=== PATIENT | male | born 1940 | race Caucasian/White ===

== ENCOUNTER → 2019-09-28 07:59 | Outpatient (BNVA) | payer OTHER, SELFPAY | PROVIDERS: Family Provider Emergency Medicine Emergency Medical Services; PCP Emergency Medicine Emergency Medical Services; Visit Provider Specialist | DX: R55 Syncope and collapse (principal); G47.33 Obstructive sleep apnea (adult) (pediatric); G47.19 Other hypersomnia; F17.210 Nicotine dependence, cigarettes, uncomplicated | CPT/HCPCS: 99214 ==

== ENCOUNTER 2019-09-29 08:36 | Outpatient (CLI) | payer OTHER, SELFPAY ==
--- NOTE | 2019-09-29 19:37 | ONC FU_ITS ---
Dr. Monahan Patient Follow-Up Note Patient: Wolf Godinez Unit #: [id number]: 1940 Dicatated By: Jameson Monahan M.D.Date of Visit:Sep 29, 2019 Onc Med Follow-up/Prog Note Chief Complaint: Anal canal cancer. 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 He had presented with a several month history of rectal bleeding. He was referred to Dr. Corley. He underwent colonoscopy on 10/28/2016. Findings included a 5 mm sessile polyp in the sigmoid colon, removed with cold biopsy forceps, and a 4 cm ulcerated mass on the left lateral side of the anal canal. By digital exam, it was noted to extend from the anal verge. Pathology on the sigmoid polyp was consistent with hyperplastic polyp. Biopsy of the anal canal mass showed low-grade (well to moderately differentiated) infiltrating adenocarcinoma. He was then seen by Dr. Vaughn in [place] for colorectal surgery evaluation. He was given the option to undergo initial chemoradiation and then reevaluate for possible surgery. He had radiation oncology consultation with Dr. Don on 11/13/2016. He had staging CT of the chest, abdomen, and pelvis on 11/25/2016. It did show soft tissue thickening in the lower rectum estimated 2.7 x 1.6 x 2.9 cm. There was mild diffuse decreased attenuation of the liver suggestive of fatty infiltration. There was no adenopathy or other evidence of metastatic involvement. A right common iliac artery stent was in place, and there did appear to be high-grade stenosis involving the distal aspect of the right common iliac artery. He began treatment with radiation concurrently with Xeloda 1500 mg twice daily on 12/10/2016. The radiation was completed on 01/26/2017 to a total dose of 5580 cGy. He tolerated the treatment well. On his follow-up with Dr. Vaughn, he appeared to have a complete pathologic response to the chemoradiation. As such, he is continuing on observation/expectant management. His other medical illnesses include hypertension, hyperlipidemia, coronary artery disease, coronary artery disease, peripheral arterial disease, GERD, and COPD. He has a history of smoking for 60 years, up to 3 packs of cigarettes daily. He had cut down to one half pack per day about 10 years ago. INTERIM HISTORY: Subsequent to his visit in August 2017 he underwent angioplasty/stent placement to both legs. He began on anticoagulation with rivaroxaban. On 10/26/2017 he was admitted to the hospital with iron deficiency anemia, hemoglobin 6.8 g. He did require transfusion of 2 units of PRBC. EGD showed nonerosive gastritis. The rivaroxaban was put on hold. On 12/01/2017 he underwent coronary angiography with placement of stents to the RCA and the LAD. I had seen him for a follow-up visit on 03/28/2019. At that point he was having some pain in the epigastric area. He otherwise appeared stable clinically. He then underwent surveillance colonoscopy by Dr. Corley on 05/10/2019. It showed a 3 mm sessile polyp in the descending colon which was removed endoscopically. There were no other abnormal findings. Pathology showed hyperplastic polyp. He also underwent EGD, which showed nonerosive gastritis. He is seen for a scheduled visit. He has been feeling pretty good generally, though he recently was seen at the [facility] with an exacerbation of gout in his right leg and subsequently in his left leg. He does complain that his legs hurt, mainly with activity. He says it feels like a muscle cramp. His energy is a little slow, but he is still doing light work. He has good appetite. He has not had fever. He does report having some sweating at night. He is short of breath with activity. He has cough, but not too much. He is still smoking 1/2 pack of cigarettes daily. He is going to be starting Chantix. He currently has no GI or complaints. He has some numbness in his fingers. Medications: Acetaminophen 1 Tablet (of 325 mg) Oral daily PRN, Allopurinol 1 Tablet (of 300 mg) Oral daily, Aspirin 1 Tablet (of 81 mg) Oral daily, Brilinta 1 Tablet (of 90 mg) Oral b.i.d., HydroCHLOROthiazide 1 Tablet (of 25 mg) Oral daily, Isosorbide Mononitrate ER 1 Tablet (of 30 mg) Tablet SR 24 HR Oral daily, Metoprolol Tartrate 1 Tablet (of 100 mg) Oral daily, Multivitamin Adult 1 Tablet Tablet Oral daily, Nitrostat 1 Tablet (of 0.4 mg) Tablet, sublingual Sublingual PRN, Pantoprazole Sodium 1 Tablet (of 20 mg) Tablet, enteric coated Oral b.i.d., Pravastatin Sodium 1 Tablet (of 40 mg) Oral daily, Ranolazine ER 1 Tablet (of 500 mg) Tablet SR 12 HR Oral b.i.d., Ticagrelor 1 Tablet (of 90 mg) Oral b.i.d. Allergies: No Known Allergies. Review of Systems: Constitutional - His energy is a little slow. He is able to do light work. Appetite is good and weight is stable. No fever. He has a little night sweating occasionally. ECOG score is 1, ENMT - He has sinus drainage. No mouth sores. No sore throat or difficulty swallowing, Hematologic/Lymphatic - He bruises easily, Respiratory - He has shortness of breath with activity. He has some cough, but not much. He smokes about half a pack of cigarettes a day. No pleuritic pain or hemoptysis, Cardiovascular - He occasionally takes nitroglycerin for chest pain. No palpitations, Gastrointestinal - No nausea or vomiting. He has occasional acid reflux. No diarrhea or constipation. No blood in the stool or black stools, Genitourinary (M) - No dysuria or hematuria. No urinary frequency. No urgency or incontinence, Musculoskeletal - He has pain in his legs, which feels like muscle cramping. It occurs mainly with walking. He also has neck and back pain, Integumentary - No skin complications, Neurologic - No headache or dizziness. He occasionally has numbness in his fingers. He has no other focal neurologic symptoms, Psychiatric - No anxiety or depression. No insomnia. Vital Signs: Performed on Sep 29, 2019 09:00 Height - 69.00 in Weight - 213.0 lbs (HIGH) BSA - 2.12 sq.m BMI - 31.45 (HIGH) Temperature - 97.6 F (LOW) Pulse - 71 /min Respiration - 20 /min BP - 139/85 mm(hg) O2 Sat - 100 % Pain - 7 Physical Examination: Constitutional - He looks pretty good generally, Eyes - Sclerae nonicteric. Conjunctivae clear, ENMT - No lesions noted in the oral cavity, Hematologic/Lymphatic - No cervical, clavicular, or axillary adenopathy, Respiratory - Lungs sound clear but with markedly diminished air movement bilaterally, Cardiovascular - Heart rhythm is irregular. There is no murmur, gallop or rub noted, Abdomen - Mildly distended. Liver and spleen are not enlarged. There is no abdominal mass or ascites noted and there is no inguinal adenopathy, Extremities - No edema. He has palpable dorsalis pedis pulse on the right and palpable posterior tibial pulse on the left. Both feet are warm to touch, Neurologic - No focal neurologic deficits noted. Impression: 1. Patient with adenocarcinoma of the anal canal. By clinical evaluation, his disease appeared to be stage II (T2, N0, M0). 2. He was given neoadjuvant chemoradiation utilizing Xeloda for chemosensitization. He completed treatment on 01/26/2017 to a total radiation dose of 5580 cGy. He tolerated the treatment well. On his follow-up with Dr. Vaughn, he did appear to have a complete pathologic response to the chemoradiation. His other medical illnesses include: 3. Hypertension. 4. Hyperlipidemia. 5. Coronary artery disease. 6. Peripheral arterial disease. 7. GERD. 8. COPD. In October 2017 he required hospitalization for iron deficiency anemia in association with nonerosive gastritis, and in November 2017 he underwent placement of stents to the RCA and LAD. A repeat EGD in April 2019 still showed evidence of nonerosive gastritis. Surveillance colonoscopy at that time showed just 1 small hyperplastic polyp in the descending colon. There were no other abnormalities noted. He has been having pain in both legs which is suspicious for claudication pain, though he does have palpable pedal pulses bilaterally. Overall, he continues to have fairly marginal performance status, but thus far there has been no evidence of recurrence of the anal canal cancer. Plan: He remains on observation/expectant management for the anal canal cancer. He will be scheduled for a follow-up visit with surveillance CT scans in 6 months. Signed By: Jameson Monahan M.D. <<Signature on File>>
== END 2019-09-29 08:37 | disposition home or self-care (01) ==
PROVIDERS: Family Provider Emergency Medicine Emergency Medical Services; PCP Emergency Medicine Emergency Medical Services; Visit Provider Internal Medicine Medical Oncology
DX: Z08 Encounter for follow-up examination after completed treatment for malignant neoplasm (principal); Z85.048 Personal history of other malignant neoplasm of rectum, rectosigmoid junction, and anus; I10 Essential (primary) hypertension; E78.5 Hyperlipidemia, unspecified; I25.10 Atherosclerotic heart disease of native coronary artery without angina pectoris; I73.9 Peripheral vascular disease, unspecified; K21.9 Gastro-esophageal reflux disease without esophagitis; J44.9 Chronic obstructive pulmonary disease, unspecified; F17.210 Nicotine dependence, cigarettes, uncomplicated; Z95.820 Peripheral vascular angioplasty status with implants and grafts; Z79.82 Long term (current) use of aspirin; Z92.3 Personal history of irradiation; Z92.21 Personal history of antineoplastic chemotherapy; Z95.5 Presence of coronary angioplasty implant and graft
CPT/HCPCS: G0463

== ENCOUNTER 2019-11-03 14:51 | Outpatient (CLI) | payer OTHER, SELFPAY ==
--- NOTE | 2019-11-03 14:58 | USCV_ITS ---
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 No significant arterial obstruction on the right side. 2. Features of mild peripheral arterial disease, involving the distal vessels on the left side Dr Jose Manuel Whitman MD [facility] (Electronically Signed) Final Date: 04 November 2019 11:11 S
== END 2019-11-03 14:52 | disposition home or self-care (01) ==
LOC: US 14:52
PROVIDERS: Family Provider Emergency Medicine Emergency Medical Services; PCP Emergency Medicine Emergency Medical Services; Visit Provider Emergency Medicine Emergency Medical Services
DX: M79.672 Pain in left foot (principal); M79.671 Pain in right foot; M79.605 Pain in left leg; M79.604 Pain in right leg
CPT/HCPCS: 93922

== ENCOUNTER 2020-03-28 11:07 | Outpatient (CLI) | payer OTHER, SELFPAY ==
--- NOTE | 2020-03-28 11:33 | CT_ITS ---
WS: [id number] CT CHEST, ABDOMEN, AND PELVIS TECHNIQUE: Noncontrast CT of the chest, abdomen, and pelvis with coronal and sagittal reformatted jose luis ges. CLINICAL INFORMATION: ANAL CANAL CANCER COMPARISON: CT chest and chest abdomen pelvis November 25, 2016 DLP: 1845.[address] scans at [facility] use at least one of these dose optimization techniques: automat ed exposure control; mA and/or kV adjustment per patient size (includes targeted exams where dose is matched to clinical indication); or iterative reconstruction. CT CHEST: Moderate chronic emphysematous changes. No acute pulmonary infiltrates. Slight bibasilar atelectasis. No mediastinal or hilar lymphadenopathy. Vascular calcification including coronary. No axillary lymp hadenopathy. Low-attenuation lesion in the upper left chest wall medially likely incidental sebaceous cyst was present in 2016 but increased in size. This measures 3.0 x 1.7 CM. No mediastinal or hilar lymphadenopathy. Vascular calcification. Hypertrophic changes thoracic spine. CT ABDOMEN AND PELVIS: Mild diffuse fatty infiltration liver. Minimal soft tissue thickening involving the anus and periana l soft tissues consistent with treatment-related changes. No nodular enhancing lesions. Normal sigmoi d colon. No evidence of small or large bowel obstruction. Normal appendix. Normal GE junction. Fatty atrophy of the pancreas. Normal noncontrast gallbladder. Adrenal glands are normal. Renal cortical atrophy. Left renal cyst. Mild aortic calcification. No abdominal or pelvic l ymphadenopathy. Somewhat enlarged prostate measuring 4.1 cm with prostate calcifications. Degenerativ e arthritis lumbar spine. CT/CT chest abd pel wo con IMPRESSION: 1. Minimal soft tissue thickening involving the anus and perirectal soft tissu es consistent with treatment-related changes. No evidence of residual or recurr ent enhancing lesion. 2. No evidence of progressed or recurrent metastatic disease in the chest, abd omen or pelvis 3. Lungs are well aerated. No mediastinal or hilar lymphadenopathy. 4. No abdominal or pelvic lymphadenopathy. No inguinal lymphadenopathy. 5. Somewhat enlarged prostate measuring 4.1 CM. Recommend correlation PSA. 6. Right common iliac stent.
== END 2020-03-28 11:08 | disposition home or self-care (01) ==
LOC: CT 11:08
PROVIDERS: Family Provider Emergency Medicine Emergency Medical Services; PCP Emergency Medicine Emergency Medical Services; Visit Provider Internal Medicine Medical Oncology
DX: C21.1 Malignant neoplasm of anal canal (principal); N40.0 Benign prostatic hyperplasia without lower urinary tract symptoms
CPT/HCPCS: 71250; 74176

== ENCOUNTER 2020-04-02 13:47 | Outpatient (CLI) | payer OTHER, SELFPAY ==
[2020-04-02 14:59] LABS: Basophils % 0.4 %; Eosinophils # 0.2 10^3/uL (0.0-0.8); Eosinophils % 2.9 %; Hematocrit 43.2 % (42.0-52.0); Hemoglobin 14.5 g/dL (11.7-16.6); Lymphocytes # 1.6 10^3/uL (0.8-4.8); Lymphocytes % 19.8 %; Mean Corpuscular HGB Conc 33.6 g/dL (30.0-36.0); Mean Corpuscular Hemoglobin 35.2 pg (28.0-34.0); Mean Corpuscular Volume 104.9 fL (80-94); Mean Platelet Volume 11.2 fL (7.4-10.4); Monocytes # 0.9 10^3/uL (0.2-0.9); Monocytes % 11.4 %; Neutrophils # 5.04 10^3/uL (1.8-7.7); Neutrophils % 64.4 %; Nucleated Red Blood Cells % 0 %; Platelet Count 180 10^3/cmm (130-400); Red Blood Count 4.12 10^6/uL (4.1-5.3); Red Cell Distribution Width 13.3 % (12.1-15.1); White Blood Count 7.8 10^3/uL (4.0-10.0)
[2020-04-02 15:06] LABS: Alanine Aminotransferase 22 U/L (0-41); Albumin Level 4.5 g/dL (3.5-5.2); Alkaline Phosphatase 111 IU/L (40-130); Anion Gap 13.2 (5-19); Aspartate Amino Transferase 26 U/L (0-40); Blood Urea Nitrogen 23 mg/dL (8-23); Calcium 10.2 mg/dL (8.5-10.5); Carbon Dioxide 29 mmol/L (22-29); Chloride 100 mmol/L (98-107); Globulin 2.3 g/dL (1.3-4.6); Glucose 119 mg/dL (65-115); Osmolality Calculated 286 mOsm/kg (285-295); Potassium 3.2 mmol/L (3.5-5.1); Sodium 139 mmol/L (136-145); Total Bilirubin 0.9 mg/dL (0.15-1.2); Total Protein 6.8 g/dL (6.6-8.7)
[2020-04-02 17:49] LABS: Carcinoembryonic Antigen 2.7 ng/mL (0.0-4.7)
--- NOTE | 2020-04-03 06:24 | ONC FU_ITS ---
Dr. Monahan Patient Follow-Up Note Patient: Wolf Godinez Unit #: [id number]: 1940 Dicatated By: Jameson Monahan M.D.Date of Visit:Apr 02, 2020 Onc Med Follow-up/Prog Note Chief Complaint: Anal canal cancer. 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 He had presented with a several month history of rectal bleeding. He was referred to Dr. Corley. He underwent colonoscopy on 10/28/2016. Findings included a 5 mm sessile polyp in the sigmoid colon, removed with cold biopsy forceps, and a 4 cm ulcerated mass on the left lateral side of the anal canal. By digital exam, it was noted to extend from the anal verge. Pathology on the sigmoid polyp was consistent with hyperplastic polyp. Biopsy of the anal canal mass showed low-grade (well to moderately differentiated) infiltrating adenocarcinoma. He was then seen by Dr. Vaughn in [place] for colorectal surgery evaluation. He was given the option to undergo initial chemoradiation and then reevaluate for possible surgery. He had radiation oncology consultation with Dr. Don on 11/13/2016. He had staging CT of the chest, abdomen, and pelvis on 11/25/2016. It did show soft tissue thickening in the lower rectum estimated 2.7 x 1.6 x 2.9 cm. There was mild diffuse decreased attenuation of the liver suggestive of fatty infiltration. There was no adenopathy or other evidence of metastatic involvement. A right common iliac artery stent was in place, and there did appear to be high-grade stenosis involving the distal aspect of the right common iliac artery. He began treatment with radiation concurrently with Xeloda 1500 mg twice daily on 12/10/2016. The radiation was completed on 01/26/2017 to a total dose of 5580 cGy. He tolerated the treatment well. On his follow-up with Dr. Vaughn, he appeared to have a complete pathologic response to the chemoradiation. He was then followed on observation/expectant management. His other medical illnesses include hypertension, hyperlipidemia, coronary artery disease, coronary artery disease, peripheral arterial disease, GERD, and COPD. He has a history of smoking for 60 years, up to 3 packs of cigarettes daily. He had cut down to one half pack per day about 10 years ago. INTERIM HISTORY: Subsequent to his visit in August 2017 he underwent angioplasty/stent placement to both legs. He began on anticoagulation with rivaroxaban. On 10/26/2017 he was admitted to the hospital with iron deficiency anemia, hemoglobin 6.8 g. He did require transfusion of 2 units of PRBC. EGD showed nonerosive gastritis. The rivaroxaban was put on hold. On 12/01/2017 he underwent coronary angiography with placement of stents to the RCA and the LAD. I had seen him for a follow-up visit on 03/28/2019. At that point he was having some pain in the epigastric area. He otherwise appeared stable clinically. He then underwent surveillance colonoscopy by Dr. Corley on 05/10/2019. It showed a 3 mm sessile polyp in the descending colon which was removed endoscopically. There were no other abnormal findings. Pathology showed hyperplastic polyp. He also underwent EGD, which showed nonerosive gastritis. He continued on observation/expectant management. Surveillance CT scans on 03/28/2020 showed a low attenuation lesion in the upper left chest wall medially felt to be consistent with sebaceous cyst. It measured 3.0 x 1.7 cm, and it had increased compared to the previous study in 2017. The prostate was noted to be somewhat enlarged, measuring 4.1 cm. There was minimal soft tissue thickening involving the anus and perirectal soft tissues, consistent with treatment related changes. There was no evidence of residual or recurrent enhancing lesion, and there was no evidence for metastatic disease in the chest, abdomen, or pelvis. He is seen for a follow-up visit. His main complaint is that he continues to have pretty severe pain in his lower back and in both legs. It does limit his activity. ECOG score is 1. Appetite is variable. His weight is up 6 pounds. He does not have fever or night sweats. He has shortness of breath with activity. He is still smoking 1/2-3/4 pack of cigarettes daily. He does not complain of cough, and he has not been having chest pain. He has no GI/ complaints other than his bowels are a little soft. He does not have diarrhea, though. He does not complain of headache or dizziness, and he has no focal neurologic symptoms. Medications: Acetaminophen 1 Tablet (of 325 mg) Oral daily PRN, Allopurinol 1 Tablet (of 300 mg) Oral daily, Aspirin 1 Tablet (of 81 mg) Oral daily, Brilinta 1 Tablet (of 90 mg) Oral b.i.d., HydroCHLOROthiazide 1 Tablet (of 25 mg) Oral daily, Isosorbide Mononitrate ER 1 Tablet (of 30 mg) Tablet SR 24 HR Oral daily, Metoprolol Tartrate 1 Tablet (of 100 mg) Oral daily, Multivitamin Adult 1 Tablet Tablet Oral daily, Nitrostat 1 Tablet (of 0.4 mg) Tablet, sublingual Sublingual PRN, Pantoprazole Sodium 1 Tablet (of 20 mg) Tablet, enteric coated Oral b.i.d., Pravastatin Sodium 1 Tablet (of 40 mg) Oral daily, Ranolazine ER 1 Tablet (of 500 mg) Tablet SR 12 HR Oral b.i.d., Ticagrelor 1 Tablet (of 90 mg) Oral b.i.d. Allergies: No Known Allergies. Review of Systems: Constitutional - His energy is very low. He has activity restriction due to pain in his legs. His appetite is good and weight is down about 6 pounds from last visit. No fever, night sweats, or hot flashes. ECOG score is 1, ENMT - He has sinus congestion/drainage. No mouth sores. No sore throat or difficulty swallowing, Hematologic/Lymphatic - No abnormal bruising or bleeding, Respiratory - He has shortness of breath with activity. No cough. No pleuritic pain or hemoptysis, Cardiovascular - No angina pain. No palpitations, Gastrointestinal - No nausea or vomiting. No heartburn or acid reflux. His stools are a little soft, but he has no diarrhea or constipation. No blood in the stool or black stools, Genitourinary (M) - No dysuria or hematuria. No urinary frequency. No urgency or incontinence, Musculoskeletal - He has pain in his legs and lower back, Integumentary - He has a cyst in his left chest area that sometimes drains foul smelling material, Neurologic - No headache or dizziness. No numbness or tingling. No other focal neurologic symptoms, Psychiatric - No anxiety or depression. He does not sleep well at night. Vital Signs: Performed on Apr 02, 2020 15:21 Height - 69.00 in Weight - 219.0 lbs (HIGH) BSA - 2.15 sq.m BMI - 32.34 (HIGH) Temperature - 98.0 F (LOW) Pulse - 73 /min Respiration - 24 /min BP - 129/73 mm(hg) O2 Sat - 99 % Pain - 7 Physical Examination: Constitutional - He looks pretty good generally, Eyes - Sclerae nonicteric. Conjunctivae clear, ENMT - No lesions noted in the oral cavity, Hematologic/Lymphatic - No cervical, clavicular, or axillary adenopathy, Respiratory - Lungs sound clear with diminished air movement bilaterally, Cardiovascular - Heart rhythm is irregular. There is no murmur, gallop, or rub noted, Abdomen - Moderately distended and firm. Liver and spleen are not enlarged. There is no abdominal mass or ascites noted and there is no inguinal adenopathy, Extremities - No edema, Integumentary - There is a large cyst in the upper left chest wall measuring approximately 3 x 4 cm, Neurologic - No focal neurologic deficits noted. Lab/Imaging: Test performed on Apr 02, 2020 14:00 Sodium 139 mmol/L Potassium 3.2 mmol/L Chloride 100 mmol/L CO2 29 mmol/L Anion Gap 13.2 BUN 23 mg/dL Creatinine 1.7 mg/dL Cr Clearance (Est) 48.9600 mL/min Glucose 119 mg/dL Calcium 10.2 mg/dL Protein, Total 6.8 g/dL Albumin 4.5 g/dL Globulin 2.3 g/dL Bilirubin, Total 0.9 mg/dL ALT (SGPT) 22 U/L AST (SGOT) 26 U/L Alkaline Phosphatase 111 IU/L WBC 7.8 10 3/uL RBC 4.12 10 6/uL HGB 14.5 g/dL HCT 43.2 % MCV 104.9 fL MCH 35.2 pg MCHC 33.6 g/dL RDW 13.3 % Platelet Count 180 10 3/cmm MPV 11.2 fL Neutrophils 5.04 10 3/uL Lymphocytes 1.6 10 3/uL Monocytes 0.9 10 3/uL Eosinophils 0.2 10 3/uL Basophils 0.0 10 3/uL Neutrophil % 64.4 % Lymphocyte % 19.8 % Monocyte % 11.4 % Eosinophil % 2.9 % Basophils % 0.4 % NRBC % 0 % CEA 2.7 ng/mL Impression: 1. Patient with adenocarcinoma of the anal canal. By clinical evaluation, his disease appeared to be stage II (T2, N0, M0). 2. He was given neoadjuvant chemoradiation utilizing Xeloda for chemosensitization. He completed treatment on 01/26/2017 to a total radiation dose of 5580 cGy. He tolerated the treatment well. On his follow-up with Dr. Vaughn, he did appear to have a complete pathologic response to the chemoradiation. His other medical illnesses include: 3. Hypertension. 4. Hyperlipidemia. 5. Coronary artery disease. 6. Peripheral arterial disease. 7. GERD. 8. COPD. In October 2017 he required hospitalization for iron deficiency anemia in association with nonerosive gastritis, and in November 2017 he underwent placement of stents to the RCA and LAD. A repeat EGD in April 2019 still showed evidence of nonerosive gastritis. Surveillance colonoscopy at that time showed just 1 small hyperplastic polyp in the descending colon. There were no other abnormalities noted. During follow-up he has had ongoing complaints with pain in his lower back and in both legs, which does limit his activity. He has shortness of breath, but he continues to smoke. He also has a fairly large cyst in the upper left chest wall which intermittently drains foul-smelling material, and he would like to get that removed if possible. However, he is now 3 years out from completion of his chemoradiation with no evidence of recurrence of the anal canal cancer. Plan: He remains on observation/expectant management for the anal canal cancer. He will be scheduled for a follow-up visit with surveillance CT scans in 1 year. In the meantime, I will see if I can arrange to have him see Dr. Corley about the sebaceous cyst. Signed By: Jameson Monahan M.D. <<Signature on File>>
== END 2020-04-02 13:48 | disposition home or self-care (01) ==
PROVIDERS: PCP Emergency Medicine Emergency Medical Services; Visit Provider Internal Medicine Medical Oncology
DX: Z08 Encounter for follow-up examination after completed treatment for malignant neoplasm (principal); Z85.048 Personal history of other malignant neoplasm of rectum, rectosigmoid junction, and anus; L72.3 Sebaceous cyst; M54.5 Low back pain; R06.02 Shortness of breath; F17.210 Nicotine dependence, cigarettes, uncomplicated; I10 Essential (primary) hypertension; E78.5 Hyperlipidemia, unspecified; I25.10 Atherosclerotic heart disease of native coronary artery without angina pectoris; I73.9 Peripheral vascular disease, unspecified; K21.9 Gastro-esophageal reflux disease without esophagitis; J44.9 Chronic obstructive pulmonary disease, unspecified; Z92.21 Personal history of antineoplastic chemotherapy; Z92.3 Personal history of irradiation
CPT/HCPCS: 80053; 82378; 85025; 99214

== ENCOUNTER 2020-04-09 09:51 | Outpatient (CLI) | payer OTHER, SELFPAY ==
--- NOTE | 2020-04-09 10:08 | MR_ITS ---
WS: [id number] MRI LUMBAR SPINE NONCONTRAST HISTORY: LOW BACK PAIN COMPARISON: None available. TECHNIQUE: Sagittal and axial multisequence imaging is submitted. Straightening of the normal cervical lordosis. Bony fusion across several of the mid to lower cervica l vertebrae with mild encroachment upon the ventral thecal sac. Increase in thoracic kyphosis. Posterior lumbar alignment is normal. Increased T2 signal in the adjacent endplates of L4 and L5. Mod erate disc space narrowing and desiccation at L4-5 and L5-S1. No fracture. Conus terminates normally at L1-2 disc level. L1-L2: Normal. L2-L3: Mild annular disc bulging with facet and ligamentum flavum arthritis. Mild central and bilater al subarticular recess narrowing. L3-L4: Diffuse mild annular disc bulging with moderate ligamentum flavum and facet joint arthritis. M oderate to severe central and bilateral subarticular recess stenosis. Mild bilateral foraminal stenos is. L4-L5: Severe central, bilateral subarticular recess and foraminal stenosis. There is marked ligament um flavum hypertrophy with complete effacement of CSF. Severe facet joint arthritis and fluid in the facet joints. L5-S1: Mild annular disc bulging and osteophytic ridging. Mild facet joint arthritis. Disc osteophyte extension into the foramen causing at least moderate bilateral foraminal stenosis, RIGHT greater cortez n LEFT. There is mild central stenosis with bilateral subarticular recess narrowing. Large laminectom y defect on the LEFT. LEFT renal cyst measures 2.0 cm. MR/MR lumbar spine wo con* [id number] IMPRESSION: 1. Severe central, bilateral subarticular recess stenosis and foraminal stenos is at L4-5 due to multiple degenerative changes including disc and facet diseas e and ligamentum flavum hypertrophy. 2. Moderate bilateral foraminal stenosis, RIGHT greater than LEFT at L5-S1. 3. Laminectomy defect on the LEFT at L5-S1. 4. Moderate to severe central and bilateral subarticular recess stenosis at L3 -4. 5. Mild central and bilateral subarticular recess narrowing at L2-3.
== END 2020-04-09 09:52 | disposition home or self-care (01) ==
LOC: RADWPI 09:56
PROVIDERS: PCP Emergency Medicine Emergency Medical Services; Visit Provider Family Medicine
DX: M54.5 Low back pain (principal); M48.07 Spinal stenosis, lumbosacral region; M48.061 Spinal stenosis, lumbar region without neurogenic claudication
CPT/HCPCS: 72148

== ENCOUNTER → 2020-05-25 09:14 | Outpatient (BNVA) | payer OTHER, SELFPAY | PROVIDERS: PCP Emergency Medicine Emergency Medical Services; Visit Provider Internal Medicine | DX: Z11.59 Encounter for screening for other viral diseases (principal) | CPT/HCPCS: 87635 ==

== ENCOUNTER 2020-05-30 09:38 | Day surgery (SDC) | payer OTHER, SELFPAY ==
[2020-05-29 11:55] VITALS: BMI 32.8
[2020-05-30 09:53] VITALS: BP 174/96; PULSE 109; RESP 22; TEMP 36.6; O2SAT 98
--- NOTE | 2020-05-30 09:55 | ANES.PREANE2 ---
Pre-Anesthetic Assessment Pre-Anesthetic Assessment: Height/Weight: Height 1.75 m Weight 100.698 kg Preop Diagnosis: Sebaceous cyst Proposed Procedure: Operation Date: 05/30/20 11:15 Proposed Procedures p Excision of cyst on chest 43703 R22.9(Not Applicable) - Diego Corley MD Familial anesthetic complications: None Was Beta Silvestre taken within 24 hours: N/A Last intake: NPO > 8 hrs Social: Social History: Alcohol and Tobacco Comment: 0-2 drinks a day of beer or hard liquor Exam: Pre-Anes Outpt Exam: alert, oriented x 3, clear to auscultation bilaterally and regular rate & rhythm Airway: MP: 4 Dentition: Partials Pulmonary: Pulmonary: Sleep apnea (severe) and SOB Comments: smoker CV/HEM: CV/HEM: Afib, CAD (NSTEMI w/ stents in 2018), HTN, PA and PVD : : Chronic renal failure GI: GI: GERD Metabolic: Comments: hyperPTH Anesthetic Plan: ASA status: 4 Anesthesia: MAC Risk of > 500 ml blood loss (7ml/kg in children): No PFSH Anesthesia PFSH: Medical History Anal cancer Anemia ASHD (arteriosclerotic heart disease) Atrial fibrillation Chronic kidney disease Dyslipidemia (high LDL; low HDL) GERD (gastroesophageal reflux disease) Gout Hyperparathyroidism Hypertension Insomnia PVD (peripheral vascular disease) Status post chemoradiation Surgical History History of cataract surgery History of rectal surgery Status post colonoscopy Family History Other Family history unknown Social History Smoking and tobacco status: current every day smoker cigarettes Packs smoked per day: 1.5 Alcohol intake: current Alcohol intake frequency: 0-2 Drinks per Day Alcohol type: beer and hard liquor Household members: spouse Marital status: Current occupational status: retired History of recent travel: No Data Anesthesia Cardiac Studies: No Data to Display
--- NOTE | 2020-05-30 10:06 | W.PM.OPSUD ---
Surgery/Procedure H&P Update DATE OF PROCEDURE: May 30, 2020 DATE H&P PERFORMED: 05/22/20 H&P UPDATE INFORMATION: I have reviewed H&P completed within last 30 days, I have examined patient prior to procedure and No changes to prior documentation PREOP DIAGNOSIS: Sebaceous cyst PLANNED PROCEDURE: Operation Date: 05/30/20 11:15 Proposed Procedures p Excision of cyst on chest 30055 R22.9(Not Applicable) - Diego Corley MD
[2020-05-30] MEDS: lidocaine 1% INJ 20 mL SUBCUT (11:19)
[2020-05-30] MEDS: neomycin-poly-bacitracin oint 28 gm 1 APPLIC TOPICAL (11:22)
--- NOTE | 2020-05-30 11:32 | PM.OP ---
Operative Report Date of procedure: May 30, 2020 Pre-op Diagnosis: Sebaceous cyst left chest wall Post-op Diagnosis: Infected sebaceous cyst measuring 3 x 4 cm left chest wall Procedure Done: Excision of infected sebaceous cyst left chest wall Pathology: Cyst left chest wall Surgeon: Diego Corley Anesthesia: MAC Condition: stable Disposition: same day Procedure: The patient is doing to the operating room in the left chest was prepped and draped in a sterile manner after patient had been placed under MAC and IV antibiotic had been administered. 20 cc of 1% lidocaine with 0.5% Marcaine was infiltrated around the lesion. Using a 15 blade elliptical incision was made longitudinally to incorporate the 2 puncta noted. Subcutaneous tissue was divided using electrocautery and the infected sebaceous cyst was dissected free from the surrounding subcutaneous tissue and underlying pectoral fascia. The wound was irrigated with saline, hemostasis ensured and medial and lateral skin flaps were raised and the subcutaneous tissues approximated using running 3-0 Vicryl suture and skin was closed using vertical mattress 3-0 Prolene suture. Antibiotic cream and sterile dressings were used to cover the incision. The patient was transferred to recovery room in stable condition.
[2020-05-30 11:33] VITALS: BP 120/76; PULSE 89; RESP 18; TEMP 36.1; O2SAT 95
--- NOTE | 2020-05-30 11:39 | ANE.PACU2 ---
Inpatient post-anesthesia follow up: Airway intact: Yes Vital signs: Temperature 97 F Pulse Rate 89 Respiratory Rate 18 Blood Pressure 120/76 Pulse Oximetry 95 Oxygen Delivery Me thod Room Air Oxygen Flow Rate Fraction of Inspir ed Oxygen Hydration adequate: Yes Nausea and vomiting: No Pain level: 1 Mental status: Baseline
[2020-05-30 11:53] VITALS: BP 131/70; PULSE 83; RESP 18; O2SAT 97
[2020-05-30] MEDS: sodium chloride 0.9% 1,000 ML 30 ML IV (12:07)
== END 2020-05-30 12:31 | disposition home or self-care (01) ==
PROVIDERS: PCP Emergency Medicine Emergency Medical Services; Visit Provider Surgery
PROC: (CPT 11406; principal; 2020-05-30 11:15)
DX: L72.0 Epidermal cyst (principal); I48.91 Unspecified atrial fibrillation; I25.10 Atherosclerotic heart disease of native coronary artery without angina pectoris; I25.2 Old myocardial infarction; I12.9 Hypertensive chronic kidney disease with stage 1 through stage 4 chronic kidney disease, or unspecified chronic kidney disease; N18.9 Chronic kidney disease, unspecified; E78.5 Hyperlipidemia, unspecified; F17.210 Nicotine dependence, cigarettes, uncomplicated; Z79.82 Long term (current) use of aspirin; Z95.5 Presence of coronary angioplasty implant and graft
CPT/HCPCS: 11406; 12345; 88304; J0690; J2704; J3010; J3490; J7030

== ENCOUNTER 2021-04-04 11:14 | Outpatient (CLI) | payer OTHER, SELFPAY ==
--- NOTE | 2021-04-04 11:31 | CT_ITS ---
WS: [id number] CT scan of the chest Without IV contrast, CT scan of the abdomen and pelvis without IV contrast and with oral contrast. Additional two-dimensional coronal and sagittal reconstruction was performed. Clinical Data: ANAL CANAL CANCER Comparison: CT chest abdomen and pelvis, 03/28/2020. DLP: 2129.[address] scans at [facility] use at least one of these dose optimization techniques: automat ed exposure control; mA and/or kV adjustment per patient size (includes targeted exams where dose is matched to clinical indication); or iterative reconstruction. Findings: Chest: No nodules, masses or effusions are seen. The left chest sebaceous cyst is not seen. Gynecomastia is present. The heart size is normal with no pericardial effusion. There is coronary artery and aortic valvular c alcification. No pneumonia or pneumothorax is seen. The pulmonary arterial system and thoracic aorta demonstrate no abnormalities or dilatations. The tra flor bifurcates normally into the bronchi. There is no axillary or significant mediastinal adenopathy. There is a small hiatal hernia. No thorac ic bony metastatic lesions are seen but there is osteoarthritis of the thoracic vertebral bodies. Abdomen/pelvis: The liver, gallbladder, spleen, adrenal glands and pancreas are normal. The kidneys show no masses but there is a nonobstructing left renal calculus in lateral left renal co rtical cyst. The abdominal aorta is normal in size with calcification in the wall. There is a right c ommon iliac artery stent. No appendicitis or diverticulitis is seen. Oral contrast is in the small bowel and there is no bowel dilatation. The stomach is normal. No abscess, adenopathy, ascites, mass, obstruction or free air is seen. The bladder is unremarkable. The prostate is enlarged No inguinal hernia is seen. No perianal masses are seen. The bones of the lower thorax, lumbar spine, pelvis, and hips show no bony metastatic lesions but the re is osteoarthritis and degenerative disc disease of the lumbar spine.. CT/CT chest abd pel wo con Impression: 1. Negative for metastatic disease in the chest, abdomen or pelvis. 2. Negative for acute cardiopulmonary disease. 3. Negative for acute intra-abdominal or pelvic abnormalities.
[2021-04-04] MEDS: iohexol 300 mg/mL 50 mL Btl PO (11:35)
== END 2021-04-04 11:15 | disposition home or self-care (01) ==
LOC: RADWPI 11:18
PROVIDERS: PCP Emergency Medicine Emergency Medical Services; Visit Provider Internal Medicine Medical Oncology
DX: C21.1 Malignant neoplasm of anal canal (principal)
CPT/HCPCS: 71250; 74176; Q9967

== ENCOUNTER 2021-04-24 12:59 | Outpatient (CLI) | payer OTHER, SELFPAY ==
[2021-04-24 14:01] LABS: Basophils % 0.4 %; Eosinophils # 0.1 10^3/uL (0.0-0.8); Eosinophils % 1.4 %; Hematocrit 40.8 % (42.0-52.0); Hemoglobin 14.1 g/dL (11.7-16.6); Lymphocytes # 1.9 10^3/uL (0.8-4.8); Lymphocytes % 18.5 %; Mean Corpuscular HGB Conc 34.6 g/dL (30.0-36.0); Mean Corpuscular Hemoglobin 35.4 pg (28.0-34.0); Mean Corpuscular Volume 102.5 fL (80-94); Mean Platelet Volume 11.2 fL (7.4-10.4); Monocytes # 1.1 10^3/uL (0.2-0.9); Monocytes % 10.7 %; Neutrophils # 6.89 10^3/uL (1.8-7.7); Nucleated Red Blood Cells % 0 %; Platelet Count 174 10^3/cmm (130-400); Red Blood Count 3.98 10^6/uL (4.1-5.3); Red Cell Distribution Width 13.6 % (12.1-15.1); White Blood Count 10.1 10^3/uL (4.0-10.0)
[2021-04-24 14:35] LABS: Alanine Aminotransferase 22 U/L (0-41); Albumin Level 4.2 g/dL (3.5-5.2); Alkaline Phosphatase 124 IU/L (40-130); Anion Gap 15.2 (5-19); Aspartate Amino Transferase 20 U/L (0-40); Blood Urea Nitrogen 36 mg/dL (8-23); Carbon Dioxide 29 mmol/L (22-29); Chloride 97 mmol/L (98-107); Globulin 2.3 g/dL (1.3-4.6); Glucose 167 mg/dL (65-115); Osmolality Calculated 298 mOsm/kg (285-295); Potassium 3.2 mmol/L (3.5-5.1); Sodium 138 mmol/L (136-145); Total Bilirubin 1.2 mg/dL (0.15-1.2); Total Protein 6.5 g/dL (6.6-8.7)
--- NOTE | 2021-04-24 15:36 | ONC FU_ITS ---
Dr. Monahan Patient Follow-Up Note Patient: Wolf Godinez Unit #: [id number]: 1940 Dicatated By: Jameson Monahan M.D.Date of Visit:Apr 24, 2021 Onc Med Follow-up/Prog Note Chief Complaint: Anal canal cancer. 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 He had presented with a several month history of rectal bleeding. He was referred to Dr. Corley. He underwent colonoscopy on 10/28/2016. Findings included a 5 mm sessile polyp in the sigmoid colon, removed with cold biopsy forceps, and a 4 cm ulcerated mass on the left lateral side of the anal canal. By digital exam, it was noted to extend from the anal verge. Pathology on the sigmoid polyp was consistent with hyperplastic polyp. Biopsy of the anal canal mass showed low-grade (well to moderately differentiated) infiltrating adenocarcinoma. He was then seen by Dr. Vaughn in [place] for colorectal surgery evaluation. He was given the option to undergo initial chemoradiation and then reevaluate for possible surgery. He had radiation oncology consultation with Dr. Don on 11/13/2016. He had staging CT of the chest, abdomen, and pelvis on 11/25/2016. It did show soft tissue thickening in the lower rectum estimated 2.7 x 1.6 x 2.9 cm. There was mild diffuse decreased attenuation of the liver suggestive of fatty infiltration. There was no adenopathy or other evidence of metastatic involvement. A right common iliac artery stent was in place, and there did appear to be high-grade stenosis involving the distal aspect of the right common iliac artery. He began treatment with radiation concurrently with Xeloda 1500 mg twice daily on 12/10/2016. The radiation was completed on 01/26/2017 to a total dose of 5580 cGy. He tolerated the treatment well. On his follow-up with Dr. Vaughn, he appeared to have a complete pathologic response to the chemoradiation. He was then followed on observation/expectant management. His other medical illnesses include hypertension, hyperlipidemia, coronary artery disease, coronary artery disease, peripheral arterial disease, GERD, and COPD. He has a history of smoking for 60 years, up to 3 packs of cigarettes daily. He had cut down to one half pack per day about 10 years ago. INTERIM HISTORY: Subsequent to his visit in August 2017 he underwent angioplasty/stent placement to both legs. He began on anticoagulation with rivaroxaban. On 10/26/2017 he was admitted to the hospital with iron deficiency anemia, hemoglobin 6.8 g. He did require transfusion of 2 units of PRBC. EGD showed nonerosive gastritis. The rivaroxaban was put on hold. On 12/01/2017 he underwent coronary angiography with placement of stents to the RCA and the LAD. I had seen him for a follow-up visit on 03/28/2019. At that point he was having some pain in the epigastric area. He otherwise appeared stable clinically. He then underwent surveillance colonoscopy by Dr. Corley on 05/10/2019. It showed a 3 mm sessile polyp in the descending colon which was removed endoscopically. There were no other abnormal findings. Pathology showed hyperplastic polyp. He also underwent EGD, which showed nonerosive gastritis. His CT scans on 03/28/2020 showed a low attenuation lesion in the upper left chest wall medially felt to be consistent with sebaceous cyst. It measured 3.0 x 1.7 cm, and it had increased compared to the previous study in 2017. The prostate was noted to be somewhat enlarged, measuring 4.1 cm. There was minimal soft tissue thickening involving the anus and perirectal soft tissues, consistent with treatment related changes. There was no evidence of residual or recurrent enhancing lesion, and there was no evidence for metastatic disease in the chest, abdomen, or pelvis. He continued on observation/expectant management. Surveillance CT scans on 04/04/2021 showed no evidence of metastatic disease in the chest, abdomen, or pelvis. He is seen for a follow-up visit. He complains that he does not have much energy, and his activity now is very limited. He is still doing some light work at home. ECOG score is 1. Appetite is variable. His weight is down 8 pounds from last year. He does not have fever. He tends to wake up at night feeling warm, I also sometimes has a little sweating at night. He occasionally has sore throat. He has just occasional cough. He does get short of breath with activity. He sometimes has chest pain. He has no GI complaints other than his bowels tend to fluctuate somewhat. Bladder function remains adequate, though his urination is slow. He has some stiffness in his joints. He is not having much pain. He sometimes has headache and he sometimes feels fuzzy headed. He has no numbness/paresthesia or other focal neurologic symptoms. Medications: Acetaminophen 1 Tablet (of 325 mg) Oral daily PRN, Albuterol Sulfate HFA Aerosol, solution Inhalation PRN, Allopurinol 1 Tablet (of 300 mg) Oral daily, amLODIPine Besylate (5 mg) Tablet Oral daily, Aspirin 1 Tablet (of 81 mg) Oral daily, Furosemide (40 mg) Tablet Oral daily, HydroCHLOROthiazide 1 Tablet (of 25 mg) Oral daily, Isosorbide Mononitrate ER 1 Tablet (of 30 mg) Tablet SR 24 HR Oral daily, Metoprolol Tartrate 1 Tablet (of 100 mg) Oral daily, Multivitamin Adult 1 Tablet Tablet Oral daily, Nitrostat 1 Tablet (of 0.4 mg) Tablet, sublingual Sublingual PRN, Pantoprazole Sodium 1 Tablet (of 20 mg) Tablet, enteric coated Oral b.i.d., Pravastatin Sodium 1 Tablet (of 40 mg) Oral daily, Ranolazine ER 1 Tablet (of 500 mg) Tablet SR 12 HR Oral b.i.d., Ticagrelor 1 Tablet (of 90 mg) Oral b.i.d. Allergies: No Known Allergies. Vital Signs: Performed on Apr 24, 2021 13:42 Height - 69.00 in Weight - 210.8 lbs (LOW) BSA - 2.11 sq.m BMI - 31.13 (HIGH) Temperature - 96.8 F (LOW) Pulse - 80 /min Respiration - 18 /min BP - 121/67 mm(hg) O2 Sat - 96 % Pain - 2 Fatigue - 4 Physical Examination: Constitutional - He looks pretty good generally, though he has limited mobility, Eyes - Sclerae nonicteric. Conjunctivae clear, ENMT - No lesions noted in the oral cavity, Hematologic/Lymphatic - No cervical, clavicular, or axillary adenopathy, Respiratory - Lungs sound clear with diminished air movement bilaterally, Cardiovascular - Heart rhythm is irregular. There is no murmur, gallop, or rub noted, Abdomen - Moderately distended and firm. Liver and spleen are not enlarged. There is no abdominal mass or ascites noted and there is no inguinal adenopathy, Extremities - No edema, Neurologic - No focal neurologic deficits noted. Lab/Imaging: Test performed on Apr 24, 2021 13:30 Sodium 138 mmol/L Potassium 3.2 mmol/L Chloride 97 mmol/L CO2 29 mmol/L Anion Gap 15.2 BUN 36 mg/dL Creatinine 1.5 mg/dL Cr Clearance (Est) 54.5800 mL/min Glucose 167 mg/dL Osmolality - Calculated 298 mOsm/kg Calcium 10.0 mg/dL Protein, Total 6.5 g/dL Albumin 4.2 g/dL Globulin 2.3 g/dL Bilirubin, Total 1.2 mg/dL ALT (SGPT) 22 U/L AST (SGOT) 20 U/L Alkaline Phosphatase 124 IU/L WBC 10.1 10 3/uL RBC 3.98 10 6/uL HGB 14.1 g/dL HCT 40.8 % MCV 102.5 fL MCH 35.4 pg MCHC 34.6 g/dL RDW 13.6 % Platelet Count 174 10 3/cmm MPV 11.2 fL Neutrophils 6.89 10 3/uL Lymphocytes 1.9 10 3/uL Monocytes 1.1 10 3/uL Eosinophils 0.1 10 3/uL Basophils 0.0 10 3/uL Neutrophil % 68.0 % Lymphocyte % 18.5 % Monocyte % 10.7 % Eosinophil % 1.4 % Basophils % 0.4 % NRBC % 0 % Problem List: 1. Adenocarcinoma of the anal canal. By clinical evaluation, his disease appeared to be stage II (T2, N0, M0). 2. Hyperlipidemia. 3. Coronary artery disease. 4. Peripheral arterial disease. 5. GERD. 6. COPD. 7. He has a history of iron deficiency anemia in association with erosive gastritis. Problems Addressed with this Encounter and Plan: 1. Patient with adenocarcinoma of the anal canal. By clinical evaluation, his disease appeared to be stage II (T2, N0, M0). He was given neoadjuvant chemoradiation utilizing Xeloda for chemosensitization. He completed treatment on 01/26/2017 to a total radiation dose of 5580 cGy. He tolerated the treatment well. On his follow-up with Dr. Vaughn, he appeared to have a complete pathologic response to the chemoradiation. He opted not to have any further treatment, and he was then followed expectantly. During follow-up he is continuing to have fairly marginal performance status. That appears to be most likely related to his coronary artery disease and COPD. Thus far there has been no evidence of recurrence of the anal canal cancer. He continues on expectant management. He will be scheduled for a follow-up visit with surveillance CT scans in 1 year. 2. He has hypokalemia. This will refer to Dr. Whitman for further management. Signed By: Jameson Monahan M.D. <<Signature on File>>
== END 2021-04-24 13:00 | disposition home or self-care (01) ==
PROVIDERS: PCP Emergency Medicine Emergency Medical Services; Visit Provider Internal Medicine Medical Oncology
DX: Z08 Encounter for follow-up examination after completed treatment for malignant neoplasm (principal); Z85.048 Personal history of other malignant neoplasm of rectum, rectosigmoid junction, and anus; E78.5 Hyperlipidemia, unspecified; I25.10 Atherosclerotic heart disease of native coronary artery without angina pectoris; I73.9 Peripheral vascular disease, unspecified; K21.9 Gastro-esophageal reflux disease without esophagitis; J44.9 Chronic obstructive pulmonary disease, unspecified; D50.9 Iron deficiency anemia, unspecified; K29.60 Other gastritis without bleeding; Z79.899 Other long term (current) drug therapy; Z92.21 Personal history of antineoplastic chemotherapy; Z92.3 Personal history of irradiation
CPT/HCPCS: 36415; 80053; 85025; 99214

== ENCOUNTER → 2021-07-09 13:18 | Outpatient (BNVA) | payer OTHER, SELFPAY | PROVIDERS: PCP Emergency Medicine Emergency Medical Services; Referring Provider Emergency Medicine Emergency Medical Services; Visit Provider Internal Medicine | DX: E21.0 Primary hyperparathyroidism (principal); F17.210 Nicotine dependence, cigarettes, uncomplicated | CPT/HCPCS: 99204 ==

== ENCOUNTER 2021-08-07 07:04 | Outpatient (CLI) | payer OTHER, SELFPAY ==
--- NOTE | 2021-08-07 07:16 | ECG_ITS ---
[facility] Test Date: 2021-08-07 Pat Name: Wolf Godinez Department: Room: Gender: Male [employer] Director: : 1940 Requested By: Jose Manuel Whitman Order Number: [id number] Meliza MD: Jose Manuel Whitman M.D. Interpretive Statements NAME OF STUDY: LEXISCAN SESTAMIBI STRESS TEST INDICATION: Chest Pain, PROCEDURE: At the baseline, the EKG revealed sinus bradycardia with a nonspecific T wave changes. Occasional supraventricular ectopics. The baseline blood pressure was 183/78 mm Hg with a heart rate of 58 beats/min. Lexiscan was infused over a period of 20 seconds. A total of 0.4 milligrams of Lexiscan was infused. The stress phase was continued for a total of 5 minutes. Heart rate at the end of the stress phase was 66 with a blood pressure 162/58. The EKG at the peak infusion revealed some nonspecific ST changes. Sestamibi was injected 20 seconds after the Lexiscan infusion. Blood pressure at the end of the recovery phase was 178/64 with a heart rate of 65 per minute. CONCLUSION: 1. No significant EKG changes with the LexiScan infusion 2. No LexiScan induced chest pain or cardiac arrhythmia 3. Normal blood pressure and heart rate response 4. Sestamibi/sestamibi perfusion scan pending; see separate report. Electronically Signed On 08-16-2021 10:45:36 HEADLINE WRITER by Jose Manuel Whitman M.D. [email or web address]
--- NOTE | 2021-08-07 07:17 | NMCV_ITS ---
NM dianne perf SPECT r/s* [id number] Wolf Godinez Age: 81 Gender: M : 1940 Exam Date: 08/07/2021 08:06 Ordering Phys: Jose Manuel Whitman MD ([email or web address]) Technologist: ROMULO Cole Exam Location: [facility] Indications: SHORTNESS OF BREATH STRESS TEST Please see separate stress test report in [facility] for full findings IMAGE PROTOCOL Rest/Stress 1 Lexiscan Day Radiopharmaceutical Dose (mCi) Administration Site Administered by Rest: Tc-99m 11.0 IV ROMULO Cole Sestamibi Stress:Tc-99m 32.7 IV ROMULO Quevedo Sestamibi Rest: 07-Aug-2021 60 Discovery 630 Stress: 07-Aug-2021 30 Discovery 630 0.4mg Lexiscan. Supine position only as patient was unable to lay prone. SPECT RESULTS Technical Quality: Excellent Raw Data Analysis: Normal Image Corrections: No attenuation or motion correction applied Summed Stress Score: 0 Summed Rest Score: 0 Summed Difference Score: 0 PERFUSION FINDINGS Fairly uniform myocardial tracer uptake with no significant perfusion abnormalities FUNCTIONAL RESULTS (calculated via Gated SPECT) Stress Image LV EF (%): 83 Stress EDV (mL):104 TID: 1.17 Stress ESV (mL):18 FUNCTIONAL FINDINGS: Segmental wall motion analysis revealing no gross wall motion abnormalities IMPRESSIONS 1. Myocardial perfusion imaging revealing fairly uniform myocardial tracer uptake with no significant perfusion of normalities. Elevated transient ischemic dilatation ratio may suggest endocardial ischemia. In the absence of any other abnormal objective findings, the positive predictive value of this finding is limited. Clinical correlation is recommended. 2. Normal LV ejection fraction of 83%. 3. LV wall motion analysis revealing no gross wall motion normalities. 4. Normal LV volume Compared to the study from 04/29/2018, the LV ejection fraction appears to have improved Dr Jose Manuel Whitman MD FACC (Electronically Signed) Final Date: 14 August 2021 06:07 S
[2021-08-07 07:24] VITALS: BMI 31.0
[2021-08-07] MEDS: regadenoson 0.4 Mg/5 ml Syringe IVP (08:54)
[2021-08-07 09:11] VITALS: BP 178/64; PULSE 65
== END 2021-08-07 07:05 | disposition home or self-care (01) ==
LOC: CDL 07:06
PROVIDERS: PCP Emergency Medicine Emergency Medical Services; Visit Provider Internal Medicine Cardiovascular Disease
DX: R07.9 Chest pain, unspecified (principal); R06.02 Shortness of breath
CPT/HCPCS: 78452; 93017; A9500; J2785

== ENCOUNTER 2021-08-13 06:40 | Outpatient (CLI) | payer OTHER, SELFPAY ==
--- NOTE | 2021-08-13 09:00 | NM_ITS ---
WS: [id number] NUCLEAR MEDICINE PARATHYROID SCINTIGRAPHY INDICATION: Primary hyperparathyroidism TECHNIQUE: 19.2 mCi technetium 99m sestamibi FINDINGS: Normal homogeneous thyroid uptake and salivary gland uptake on the initial 2 hour imaging. Delayed 4 hour imaging demonstrates normal thyroid washout. No retention to indicate parathyroid ashleigh gloria. NM/NM parathyroid 79507 IMPRESSION: No evidence of parathyroid adenoma.
== END 2021-08-13 06:41 | disposition home or self-care (01) ==
LOC: RAD 06:41
PROVIDERS: PCP Emergency Medicine Emergency Medical Services; Visit Provider Internal Medicine
DX: E21.0 Primary hyperparathyroidism (principal)
CPT/HCPCS: 78070; A9500

== ENCOUNTER → 2022-03-31 09:57 | Outpatient (BNVA) | payer OTHER, SELFPAY | PROVIDERS: PCP Emergency Medicine Emergency Medical Services; Visit Provider Internal Medicine Cardiovascular Disease | DX: I25.119 Atherosclerotic heart disease of native coronary artery with unspecified angina pectoris (principal); E78.5 Hyperlipidemia, unspecified; F17.210 Nicotine dependence, cigarettes, uncomplicated; I48.11 Longstanding persistent atrial fibrillation; Z79.01 Long term (current) use of anticoagulants; R00.1 Bradycardia, unspecified; I13.0 Hypertensive heart and chronic kidney disease with heart failure and stage 1 through stage 4 chronic kidney disease, or unspecified chronic kidney disease; N18.30 Chronic kidney disease, stage 3 unspecified; I50.33 Acute on chronic diastolic (congestive) heart failure | CPT/HCPCS: 80048; 80061; 83880; 84443; 99214 ==

== ENCOUNTER 2022-06-05 10:50 | Oncology outpatient (recurring) (ONCR) | payer OTHER, SELFPAY | END 2022-06-13 23:59 | disposition home or self-care (01) | PROVIDERS: PCP Emergency Medicine Emergency Medical Services; Visit Provider Internal Medicine Medical Oncology | DX: Z08 Encounter for follow-up examination after completed treatment for malignant neoplasm (principal); Z85.038 Personal history of other malignant neoplasm of large intestine; F17.210 Nicotine dependence, cigarettes, uncomplicated; Z92.21 Personal history of antineoplastic chemotherapy; Z92.3 Personal history of irradiation | CPT/HCPCS: 80053; 85025; 99213; 99214 ==

== ENCOUNTER → 2022-07-10 08:11 | Outpatient (BNVA) | payer OTHER, SELFPAY | PROVIDERS: PCP Emergency Medicine Emergency Medical Services; Referring Provider Emergency Medicine Emergency Medical Services; Visit Provider Student in an Organized Health Care Education/Training Program | DX: M65.341 Trigger finger, right ring finger (principal); M65.342 Trigger finger, left ring finger | CPT/HCPCS: 99204 ==

== ENCOUNTER 2022-07-18 05:21 | Day surgery (SDC) | payer OTHER, SELFPAY ==
[2022-07-17 12:02] VITALS: BMI 31.7
[2022-07-18 06:01] VITALS: BP 165/61; PULSE 49; RESP 16; TEMP 36.6; O2SAT 97
[2022-07-18] MEDS: acetaminophen 1,000 MG/100 ML PIGGYBACK 400 MG IV (06:14)
[2022-07-18] MEDS: sodium chloride 0.9% 1,000 ML 30 ML IV (06:14)
[2022-07-18] MEDS: ketorolac 30 mg/mL INJ IVP (06:17)
--- NOTE | 2022-07-18 06:36 | ANES.PREANE2 ---
Pre-Anesthetic Assessment Height/Weight: Height 1.75 m Weight 97.522 kg Temp Pulse Resp BP Pulse Ox O2 Del Method 97.9 F 49 L 16 165/61 97 07/18/22 06:01 07/18/22 06:01 07/18/22 06:01 07/18/22 06:01 07/18/22 06:01 07/18/22 06:01 Preop Diagnosis: Right ring finger trigger, left ring finger trigger Operation Date: 07/18/22 07:00 Proposed Procedures p RIGHT RING FINER TRIGGER RELEASE [id number], LEFT RING FINGER TRIGGER FINGER INJECTION 96180(Right) - Sarath Salguero, Familial anesthetic complications: None Was Beta Silvestre taken within 24 hours: Yes Was Clonidine taken within 24 hours: N/A Last intake: Intake Last Liquid Date 07/17/22 Last Liquid Time 17:00 Last Solid Date 07/17/22 Last Solid Time 17:00 Social Alcohol (Couple times a week) and Tobacco 0.5 pack(s) per day Exam alert, oriented x 3, clear to auscultation bilaterally and regular rate & rhythm (Bradycardia) Airway Submandibular: within normal limits Cervical ROM: within normal limits Mallampati: Class III Dentition: partials History/ROS No significant history except as noted and No significant complaints Pulmonary Chronic Obstructive Pulmonary Disease and Exertional Dyspnea CV/HEM Atrial Fibrillation, Stable Angina (None this am. Took nitroglycerin tab last week), Arrythmia (Bradycardia), Coronary Artery Disease, Hypertension and Myocardial Infarction (4 heart stents, last placed 4 years ago. Last saw labor economics professor 7 months ago, no new changes) None reported Has an appointment to see cement boat and barge loader Hepatic None reported GI Gastroesophageal Reflux Disease (Controlled with meds) Metabolic Hyperlipidemia and Thyroid Disease [facility] Lower Back Pain and Osteoarthritis/DJD 2 back surgeries Neuropsych None reported Anesthetic Plan ASA status: 3 Anesthesia: Anesthesia Evaluation, General and MAC Risk of > 500 ml blood loss (7ml/kg in children): No Medications/Allergies Home Medications Medication Instructions Recorded Confirmed Last Taken Type hydrochlorothiazide 25 mg tablet 25 mg PO QAM 09/28/19 07/18/22 07/17/22 History pantoprazole 20 mg tablet,delayed 20 mg PO BID 09/28/19 07/18/22 07/17/22 History release albuterol sulfate 90 mcg/actuation 2 puff inhalation Q6H PRN Wheezing 05/22/20 07/18/22 07/17/22 History aerosol inhaler allopurinol 300 mg tablet 300 mg PO DAILY 05/28/20 07/18/22 07/17/22 History aspirin 81 mg chewable tablet 81 mg PO DAILY 05/30/20 07/17/22 07/17/22 07:00 History ticagrelor 90 mg tablet 90 mg PO BID #180 tabs 09/03/20 07/18/22 07/17/22 Rx ranolazine 500 mg tablet,extended 500 mg PO BID 12/20/20 07/18/22 07/17/22 History release,12 hr nitroglycerin 0.4 mg sublingual 0.4 mg sublingual Q5M PRN Angina 06/20/21 07/17/22 Unknown History tablet (Nitrostat) isosorbide mononitrate 120 mg 120 mg PO DAILY #90 tabs 07/08/21 07/18/22 07/17/22 Rx tablet,extended release 24 hr omega 4-ctu-oro-fish oil 300 1 cap PO DAILY 03/31/22 07/18/22 07/17/22 History mg-1,000 mg capsule amlodipine 10 mg tablet 5 mg PO DAILY 06/05/22 07/18/22 07/17/22 History metoprolol succinate 25 mg 50 mg PO DAILY 06/05/22 07/18/22 07/17/22 07:00 History tablet,extended release 24 hr potassium citrate 99 mg capsule 99 mg PO DAILY 06/05/22 07/18/22 07/17/22 History pravastatin 80 mg tablet 40 mg PO DAILY 06/05/22 07/18/22 07/17/22 History Allergies Allergy/AdvReac Type Severity Reaction Status Date / Time No Known Allergies Allergy Verified 07/10/22 08:36 Current Medications Generic Name Dose Route Start Last Admin Trade Name Freq PRN Reason Stop Dose Admin Sodium Chloride 1,000 mls @ 30 mls/hr 07/18/22 06:00 07/18/22 06:14 Sodium Chloride 0.9% IV 07/19/22 05:59 30 mls/hr .Q24H ASHLEY Administration PFSH Anesthesia Medical History (Updated 07/14/22 @ 21:18 by Sarath Salguero DO) Anal cancer Anemia ASHD (arteriosclerotic heart disease) Atrial fibrillation Chronic kidney disease COPD (chronic obstructive pulmonary disease) Dyslipidemia (high LDL; low HDL) GERD (gastroesophageal reflux disease) Gout Hyperparathyroidism Hypertension Insomnia Peripheral arterial disease Trigger finger, left ring finger Trigger finger, right ring finger Surgical History H/O cervical spine surgery H/O excision of epidermal inclusion cyst (05/30/20) left chest wall H/O hernia repair History of back surgery Spinal fusion History of cataract surgery History of coronary angioplasty with insertion of stent S/P arterial stent right leg in 2009, left leg in 2017 Status post colonoscopy Family History Other Family history unknown Social History Smoking and tobacco status: current every day smoker (0.5 ppd, smoked x 65+ years) cigarettes Packs smoked per day: 1.5 Alcohol intake: current Alcohol intake frequency: 0-2 Drinks per Day Alcohol type: beer and hard liquor Household members: spouse Marital status: Current occupational status: retired History of recent travel: No Data Anesthesia Cardiac Studies: Sestamibi Stress Test (Cardiology) 08/07/21 Cardiac Event Monitor 09/30/21
--- NOTE | 2022-07-18 06:42 | W.PM.OPSUD ---
Surgery/Procedure H&P Update DATE OF PROCEDURE: July 18, 2022 DATE H&P PERFORMED: 07/10/22 CHANGES TO PREVIOUS DOCUMENTATION: None We will plan on right ring finger trigger release and left ring finger trigger corticosteroid injection PREOP DIAGNOSIS: Right ring finger trigger, left ring finger trigger PRIMARY INDICATION FOR PROCEDURE: Right ring finger trigger and left ring finger trigger PLANNED PROCEDURE: Operation Date: 07/18/22 07:00 Proposed Procedures p RIGHT RING FINER TRIGGER RELEASE [id number], LEFT RING FINGER TRIGGER FINGER INJECTION 19483(Right) - Sarath Salguero DO
[2022-07-18] MEDS: ceFAZolin 2,000 MG in sodium chloride 0.9% (plus) 50 ML 100 MG IV (07:00)
[2022-07-18] MEDS: triamcinolone 40 mg/mL SDV 10 MG INJECTION (07:10)
--- NOTE | 2022-07-18 07:35 | PM.OP2 ---
Brief Operative Note Date of procedure: 07/18/22 Pre-op diagnosis: Right ring finger trigger, left ring finger trigger Post-op diagnosis: same Procedure Done: Right ring finger trigger release, left ring finger trigger corticosteroid injection Surgeon: Sarath Salguero Estimated blood loss (mL): 1 Complications: None Post-op Plan: Patient taken to PACU in stable condition. Patient will receive appropriate discharge instructions as well as pain medication postoperatively. He can be weightbearing as tolerated to the bilateral hands. Encourage range of motion. Elevation as needed. We will have him follow-up with us in office in 2 weeks. Condition: stable Disposition: same day Coding Level of Care Code Acute [employer] for 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
--- NOTE | 2022-07-18 07:36 | PM.PACU ---
PACU note Narrative: Patient taken to PACU in stable condition. Patient recovering well. Sensation decreased of the right ring finger secondary to local anesthesia. Fingertips warm and well-perfused. Patient is able to flex and extend his fingers without triggering. Dressing clean dry and intact. Exam: awake ( see narrative for detailed exam) Disposition: discharged
--- NOTE | 2022-07-18 07:38 | PM.OP ---
Operative Report Date of procedure: July 18, 2022 Pre-op diagnosis: Preop Diagnosis Right ring finger trigger, left ring finger trigger Post-op diagnosis: Same Procedure done: Right ring finger trigger release, left ring finger corticosteroid injection Surgeon: Sarath Salguero DO Estimated blood loss: 1 mL 8 minutes IV fluids: See anesthesia record Complications: None Condition: stable Disposition: same day Brief History: Wolf is a pleasant 82-year-old male who was seen and worked up in the outpatient setting and findings as far as physical exam findings consistent with right ring finger trigger finger as well as left ring finger trigger finger. Pertaining to his right ring finger this is mechanical and locks up and catches at all times cause him severe pain and he has to pry this open when he wakes up in the morning. As well as throughout the day. This is affected his daily living and at this point time we talked about his treatment options as far as nonoperative and operative intervention. He understands risk benefits complication alternatives to surgical treatment options and at this point time elects to proceed with right ring finger trigger finger release. On exam he did have a left ring finger that was tender to palpation but minimal active triggering at this time. We talked about his treatment options pertaining to this and he would like to pursue a corticosteroid injection to his left ring finger. We will do this in conjunction with his surgery. Once again consent was reviewed with patient pertaining to all risk benefits complications and alternatives to his treatment options. He understands and agrees to proceed with surgery today. All questions been answered at this time. Procedure: Patient was seen evaluated in the preoperative holding area. Consent was reviewed with patient. The correct extremity was then marked as the right ring finger for a trigger release and a left ring finger for corticosteroid injection. He was seen evaluated by anesthesia department once cleared for surgery was taken back to the operative suite placed in supine position right arm was placed on a armboard. All bony prominences well-padded patient was appropriately secured to the bed. He received appropriate preoperative antibiotics. At this point time the right upper extremity was placed with a nonsterile tourniquet to the right upper extremity. Right upper extremity was prepped and draped in standard orthopedic fashion. Final timeout performed confirming procedure. Utilizing sterile aseptic technique we began procedure with performing left small finger corticosteroid injection which was prepped in standard orthopedic fashion. We then injected the left ring finger flexor tendon sheath patient tolerated corticosteroid injection without any complications the site was then cleaned and Band-Aid placed. Next the right upper extremity was then exsanguinated with Esmarch tourniquet and tourniquet inflated to 250 mmHg. A standard horizontal incision along the distal flexor crease near the A1 gabby of the right ring finger was then made small incision was roughly 1.5 cm in width. Sharp scalpel excision through skin and subcutaneous tissue. Utilize Littler dissection scissors spread on longitudinal plane in line with the extensor tendon. Kasdan retractors placed to protect the neurovascular bundles both radially and ulnarly. Once protected we had direct visualization of the A1 gabby. I then utilized Littler dissection scissors and under direct loupe magnification visualization completed an A1 gabby release. This was completed to ask extent distally and proximally with care not to injure any neurovascular structures. This point time utilized a rag nail and delivered the flexor tendons sequentially out of the wound with no triggering noted. Patient was able to make a fist without any catching. This completed the trigger finger release. Then thoroughly irrigated the wound bed. Tourniquet deflated. Hemostasis satisfactory with bipolar electrocautery. I then closed the incision with interrupted nylon suture. Patient was then dressed with Xeroform 4 x 4's Curlex and an Malvin wrap. He was then awakened from anesthesia and taken to PACU in stable condition. Patient tolerated procedure without complications. Disposition: Patient taken to PACU in stable condition. Will discharge home later today. Patient dressing clean dry and intact. Given appropriate discharge instruction as well as pain medication postoperatively. We will see him back in 2 weeks for repeat evaluation and suture removal. Patient understands agrees with current plan. All questions answered.
[2022-07-18 07:40] VITALS: BP 143/67; PULSE 46; RESP 14; TEMP 36.3; O2SAT 95
[2022-07-18 07:45] VITALS: BP 163/56; PULSE 45; RESP 17; O2SAT 95
[2022-07-18 07:50] VITALS: BP 150/71; PULSE 45; RESP 16; O2SAT 94
[2022-07-18 07:55] VITALS: BP 149/71; PULSE 45; RESP 16; TEMP 36.6; O2SAT 97
[2022-07-18 08:10] VITALS: BP 145/72; PULSE 49; RESP 15; TEMP 36.6; O2SAT 97
--- NOTE | 2022-07-18 15:10 | ANE.PACU2 ---
Inpatient post-anesthesia follow up: Airway intact: Yes Vital signs: Temperature 97.8 F Pulse Rate 49 Respiratory Rate 15 Blood Pressure 145/72 Pulse Oximetry 97 Oxygen Delivery Me thod Room Air Oxygen Flow Rate Fraction of Inspir ed Oxygen Hydration adequate: Yes Nausea and vomiting: No Pain level: 1 Mental status: Baseline
== END 2022-07-18 08:15 | disposition home or self-care (01) ==
PROVIDERS: PCP Emergency Medicine Emergency Medical Services; Visit Provider Student in an Organized Health Care Education/Training Program
PROC: (CPT 26055; principal; 2022-07-18 07:00)
DX: M65.341 Trigger finger, right ring finger (principal); M65.342 Trigger finger, left ring finger; F17.210 Nicotine dependence, cigarettes, uncomplicated; J44.9 Chronic obstructive pulmonary disease, unspecified; I48.91 Unspecified atrial fibrillation; I25.110 Atherosclerotic heart disease of native coronary artery with unstable angina pectoris; I25.2 Old myocardial infarction; I10 Essential (primary) hypertension; Z95.5 Presence of coronary angioplasty implant and graft; K21.9 Gastro-esophageal reflux disease without esophagitis
CPT/HCPCS: 20550; 26055; J0131; J0690; J1885; J2250; J2704; J2795; J3010; J3301; J3490; J7030

== ENCOUNTER → 2022-07-31 13:11 | Outpatient (BNVA) | payer OTHER, SELFPAY | PROVIDERS: PCP Emergency Medicine Emergency Medical Services; Visit Provider Student in an Organized Health Care Education/Training Program | DX: Z98.890 Other specified postprocedural states (principal); M65.342 Trigger finger, left ring finger | CPT/HCPCS: 99024 ==

== ENCOUNTER → 2022-08-21 13:11 | Outpatient (BNVA) | payer OTHER, SELFPAY | PROVIDERS: PCP Emergency Medicine Emergency Medical Services; Visit Provider Student in an Organized Health Care Education/Training Program | DX: Z98.890 Other specified postprocedural states (principal); M65.341 Trigger finger, right ring finger; M65.342 Trigger finger, left ring finger | CPT/HCPCS: 99024 ==

== ENCOUNTER 2022-09-09 11:29 | Outpatient (CLI) | payer OTHER, SELFPAY ==
[2022-09-09] MEDS: iohexol 350 mg/mL 500 mL Btl (per mL) PO (11:40)
--- NOTE | 2022-09-09 13:30 | CT_ITS ---
WS: [id number] CT CHEST, ABDOMEN, AND PELVIS TECHNIQUE: Noncontrast CT of the chest, abdomen, and pelvis with coronal and sagittal reformatted jose luis ges. CLINICAL INFORMATION: anal canal cancer COMPARISON: 2019 AND 2020 DLP: 1893.[address] scans at [facility] use at least one of these dose optimization techniques: automated e xposure control; mA and/or kV adjustment per patient size (includes targeted exams where dose is matc hed to clinical indication); or iterative reconstruction. CT CHEST ABDOMEN AND PELVIS: Moderate chronic emphysematous changes. No acute pulmonary infiltrates. Tiny noncalcified nodule LEFT upper lobe measuring 3.2 mm. No acute pulmonary infiltrates. No focal pneumonia or pleural fluid. No rmal caliber thoracic aorta. Mild aortic calcification. Coronary calcification. No mediastinal or hil ar lymphadenopathy. No subcarinal lymphadenopathy. No axillary lymphadenopathy. Tiny esophageal hiatal hernia. Adrenal glands are normal. Fatty atrophy of the pancreas. Bilateral re nal cortical scarring. LEFT renal cyst. Complex LEFT renal cortical lesion measuring 1.7 cm appears s table. Fatty atrophy of the pancreas. Splenic artery calcification. Noncontrast liver and gallbladder appear normal. Normal caliber abdominal aorta. No periaortic or retroperitoneal lymphadenopathy. Vas cular calcification. RIGHT iliac stent. Normal sigmoid colon. A few diverticuli. No evidence of high-grade small or large bowel obstruction. Normal appendix in the RIGHT lower quadrant. Fat-containing LEFT inguinal hernia. Hypertrophic change s thoracic spine. Moderate thoracic kyphosis. Disc space narrowing worse L4-L5 and L5-S1. Moderate sp ondylitic changes lumbar spine. Laminectomy defects lower lumbar spine. CT/[place] [id number] IMPRESSION: 1. Small noncalcified nodule LEFT upper lobe measuring 3.2 mm appears new from previous. This may be inflammatory and recommend [address] follow-up. 2. No mediastinal or hilar lymphadenopathy. No adenopathy in the abdomen or pe lvis. 3. Low-attenuation slightly complex LEFT renal cortical lesion is unchanged si nce 2020 but increased since 2019 measuring 1.7 CM. This can be further evaluat ed with ultrasound. 4. No other suspicious findings. 5. No evidence of residual or recurrent disease involving the perirectal soft tissues. Mild soft tissue thickening consistent with treatment-related changes. 6. Prostate enlargement measuring 4.5 CM.
== END 2022-09-09 11:30 | disposition home or self-care (01) ==
LOC: RAD 11:31
PROVIDERS: PCP Emergency Medicine Emergency Medical Services; Visit Provider Internal Medicine Medical Oncology
DX: C21.1 Malignant neoplasm of anal canal (principal); R91.1 Solitary pulmonary nodule; N40.0 Benign prostatic hyperplasia without lower urinary tract symptoms
CPT/HCPCS: 71250; 74176; Q9967

== ENCOUNTER → 2022-09-29 12:43 | Outpatient (BNVA) | payer OTHER, SELFPAY | PROVIDERS: PCP Emergency Medicine Emergency Medical Services; Visit Provider Nurse Practitioner Family | DX: I25.119 Atherosclerotic heart disease of native coronary artery with unspecified angina pectoris (principal); I48.11 Longstanding persistent atrial fibrillation; I12.9 Hypertensive chronic kidney disease with stage 1 through stage 4 chronic kidney disease, or unspecified chronic kidney disease; F17.210 Nicotine dependence, cigarettes, uncomplicated; N18.30 Chronic kidney disease, stage 3 unspecified | CPT/HCPCS: 99214 ==

== ENCOUNTER → 2022-11-04 08:33 | Outpatient (BNVA) | payer OTHER, SELFPAY | PROVIDERS: PCP Emergency Medicine Emergency Medical Services; Visit Provider Podiatrist Foot & Ankle Surgery | DX: I73.9 Peripheral vascular disease, unspecified (principal); M20.41 Other hammer toe(s) (acquired), right foot; M20.42 Other hammer toe(s) (acquired), left foot; L60.3 Nail dystrophy; M21.41 Flat foot [pes planus] (acquired), right foot; M21.42 Flat foot [pes planus] (acquired), left foot; L84 Corns and callosities; E11.42 Type 2 diabetes mellitus with diabetic polyneuropathy; M21.612 Bunion of left foot; M21.611 Bunion of right foot | CPT/HCPCS: 11057; 11721; 99204 ==

== ENCOUNTER → 2023-02-03 08:47 | Outpatient (BNVA) | payer OTHER, SELFPAY | PROVIDERS: PCP Emergency Medicine Emergency Medical Services; Visit Provider Podiatrist Foot & Ankle Surgery | DX: I73.9 Peripheral vascular disease, unspecified (principal); L60.8 Other nail disorders; L84 Corns and callosities; E11.42 Type 2 diabetes mellitus with diabetic polyneuropathy; L60.3 Nail dystrophy; M20.42 Other hammer toe(s) (acquired), left foot; M20.41 Other hammer toe(s) (acquired), right foot; M21.42 Flat foot [pes planus] (acquired), left foot; M21.41 Flat foot [pes planus] (acquired), right foot; M21.612 Bunion of left foot; M21.611 Bunion of right foot | CPT/HCPCS: 11721 ==

== ENCOUNTER 2023-03-02 09:56 | Outpatient (CLI) | payer OTHER, SELFPAY ==
--- NOTE | 2023-03-02 11:00 | CT_ITS ---
WS: [id number] EXAMINATION: CT chest wo con [id number] ORDER DATE: 03/02/2023 10:30 AM COMPARISON: 09/09/2022 HISTORY: tiny spot in the left lung on CT scan TOTAL EXAM DLP: 340.[address] scans at [facility] use at least one of these dose optimization techniques: automated e xposure control; mA and/or kV adjustment per patient size (includes targeted exams where dose is matc hed to clinical indication); or iterative reconstruction. TECHNIQUE: Multiple axial images of the chest were obtained with 2-D imaging without the administration of contr ast. Evaluation of the mediastinum and marianne for adenopathy and other pathology is significantly limited by the lack of intravascular contrast. FINDINGS: Moderate chronic emphysematous changes with bilateral basilar reticular scarring. No acute pulmonary infiltrates. Tiny noncalcified nodule LEFT upper lobe measuring 3.2, on the previous study appear sma ller more like 2.5 mm could be due to slice selection differences. No acute pulmonary infiltrates. No focal pneumonia or pleural fluid. Normal caliber thoracic aorta. Mild aortic calcification. Coronary calcification and LAD stent .. No mediastinal or hilar lymphadenopathy. No subcarinal lymphadenopathy. No axillary lymphadenopathy. Tiny esophageal hiatal hernia. Adrenal glands are normal. Nonvisualization of lower abdominal structu res. CT/CT chest wo con [id number] IMPRESSION: Similar chronic changes as previous. Continued Fleischner criteria follow-up of the unchanged left upper lobe pulmonary nodule
== END 2023-03-02 09:57 | disposition home or self-care (01) ==
PROVIDERS: PCP Emergency Medicine Emergency Medical Services; Visit Provider Internal Medicine Medical Oncology
DX: R93.89 Abnormal findings on diagnostic imaging of other specified body structures (principal); C21.1 Malignant neoplasm of anal canal; R91.1 Solitary pulmonary nodule; K44.9 Diaphragmatic hernia without obstruction or gangrene; I70.0 Atherosclerosis of aorta; I25.10 Atherosclerotic heart disease of native coronary artery without angina pectoris
CPT/HCPCS: 71250

== ENCOUNTER → 2023-03-30 15:19 | Outpatient (BNVA) | payer OTHER, SELFPAY | PROVIDERS: PCP Emergency Medicine Emergency Medical Services; Visit Provider Internal Medicine Cardiovascular Disease | DX: I48.11 Longstanding persistent atrial fibrillation (principal); I25.10 Atherosclerotic heart disease of native coronary artery without angina pectoris; I73.9 Peripheral vascular disease, unspecified; E78.5 Hyperlipidemia, unspecified; I12.9 Hypertensive chronic kidney disease with stage 1 through stage 4 chronic kidney disease, or unspecified chronic kidney disease; N18.30 Chronic kidney disease, stage 3 unspecified; R07.9 Chest pain, unspecified; I11.0 Hypertensive heart disease with heart failure; R94.31 Abnormal electrocardiogram [ECG] [EKG] | CPT/HCPCS: 93005; 99214 ==

== ENCOUNTER 2023-04-12 13:05 | Emergency (ER) | payer OTHER, SELFPAY ==
[2023-04-12] VITALS (54 sets, daily range): BP systolic 80–114; BP diastolic 45–69; PULSE 82–104; RESP 7–26; TEMP 36.6; O2SAT 74–96; BMI 31.6
--- NOTE | 2023-04-12 13:23 | XRR_ITS ---
PROCEDURE INFORMATION: Exam: XR Chest Exam date and time: 04/12/2023 1:37 PM Age: 83 years old Clinical indication: Shortness of breath TECHNIQUE: Imaging protocol: Radiologic exam of the chest. Views: 1 view. COMPARISON: CT chest con [id number] 03/02/2023 10:42 AM FINDINGS: Lungs: Ill-defined opacity in the left mid to lower lung obscures the left heart border and left hemidiaphragm. No consolidation on the right. Pleural spaces: No pneumothorax. Heart/Mediastinum: The cardiac silhouette is within normal limits of size given AP technique. The left heart border is partially obscured, as is the left hilum. Bones/joints: Bones are unremarkable. XR/XR chest 1V portable [id number] IMPRESSION: Opacity in the left mid to lower lung obscuring the left heart border and diaphragm. Differential diagnosis: Pulmonary consolidation, atelectasis, pleural fluid. Consider follow-up PA and lateral chest radiographs for clarification.
[2023-04-12 13:56] LABS: Basophils % 0.2 %; Hematocrit 46.7 % (42.0-52.0); Hemoglobin 15.8 g/dL (11.7-16.6); Lymphocytes # 2.9 10^3/uL (0.8-4.8); Lymphocytes % 25.2 %; Mean Corpuscular HGB Conc 33.8 g/dL (30.0-36.0); Mean Corpuscular Hemoglobin 33.3 pg (28.0-34.0); Mean Corpuscular Volume 98.3 fl (80-94); Mean Platelet Volume 11.9 fL (7.4-10.4); Monocytes # 1.1 10^3/uL (0.2-0.9); Monocytes % 9.6 %; Neutrophils # 7.24 10^3/uL (1.8-7.7); Neutrophils % 63.9 %; Nucleated Red Blood Cells % 0 %; Platelet Count 173 10^3/cmm (130-400); Red Blood Count 4.75 10^6/uL (4.1-5.3); Red Cell Distribution Width 14.7 % (12.1-15.1); White Blood Count 11.3 10^3/uL (4.0-10.0)
--- NOTE | 2023-04-12 14:05 | PC.PHAR ---
PT GETS MEDS VIA MAIL ORDER AND [facility] [place] [facility]. UNABLE TO VERIFY DUE TO [facility] HOURS OF OPERATION ARE WEEK DAYS ONLY.
--- NOTE | 2023-04-12 14:19 | W.ED.COVID ---
HPI - COVID General: Chief Complaint: COVID symptoms Stated Complaint: covid, positive last week Time Seen by Provider: 04/12/23 13:23 History of Present Illness: Patient is to the ER with complaints of COVID-like symptoms that include shortness of breath, diarrhea, nausea vomiting, generalized weakness. Patient's tested positive for COVID a week ago and she is now getting over it patient symptoms have been going on for 4 to 5 days. Patient also been unsteady on his feet more than normal and is fallen a few times in the last several days. Patient does have a cardiac history as he says he has had probably [address] Whitman. COVID Results: SARS-CoV-2 Antigen (Rapid) positive (Negative) 04/12/23 13:45 Nasal/Oral Coronavirus 2019 PCR Negative 05/25/20 09:14 Review of Systems General: Reports: 10 or more systems reviewed and unremarkable except in HPI and below PFSH ED PFSH: Medical History Anal cancer Anemia ASHD (arteriosclerotic heart disease) Atrial fibrillation Chronic kidney disease COPD (chronic obstructive pulmonary disease) Dyslipidemia (high LDL; low HDL) GERD (gastroesophageal reflux disease) Gout Hyperparathyroidism Hypertension Insomnia Peripheral arterial disease Trigger finger, left ring finger Trigger finger, right ring finger Surgical History H/O cervical spine surgery H/O excision of epidermal inclusion cyst (05/30/20) left chest wall H/O hernia repair History of back surgery Spinal fusion History of cataract surgery History of coronary angioplasty with insertion of stent S/P arterial stent right leg in 2009, left leg in 2017 Status post colonoscopy Family History Other Family history unknown Social History Smoking and tobacco status: current every day smoker (0.5 ppd, smoked x 65+ years) cigarettes Packs smoked per day: 1.5 Alcohol intake: current Alcohol intake frequency: 0-2 Drinks per Day Alcohol type: beer and hard liquor Substance/Drug Use: never Household members: spouse Marital status: Current occupational status: retired Physical Exam Const: COMMON NORMALS: no acute distress, average body habitus, patient oriented x3, no limitations, healthy appearing, alert and well nourished HENMT: COMMON NORMALS: normocephalic, atraumatic, hearing grossly normal bilaterally, external ears normal, Normal external nose present and moist oral mucous membranes HEAD & SCALP: normocephalic and atraumatic NOSE: Normal external nose present EXTERNAL EAR: Yes external ears normal Eye: COMMON NORMALS: Equal, round and reactive pupils present, EOMs intact bilaterally, conjunctivae normal and no scleral icterus CONJUNCTIVA: Yes conjunctivae normal PUPIL: Yes Equal, round and reactive pupils present Neck/C-Spine: COMMON NORMALS: full ROM, no lymphadenopathy, supple, no meningeal signs, no JVD and Thyroid normal THYROID: Thyroid normal Lymph: LYMPHATIC: no lymphadenopathy noted Chest: COMMONS NORMALS: normal inspection of the chest and normal palpation of entire chest wall Resp: COMMON NORMALS: normal respiratory effort, No retractions and No use of accessory muscles; negative for clear to auscultation bilaterally (Mild expiratory wheeze on the right side.) AUSCULTATION: not clear to auscultation bilaterally (Mild expiratory wheeze on the right side.) Cardio: COMMON NORMALS: no JVD, regular rate, regular rhythm, S1 normal heart sound present, S2 normal heart sound present, No gallops present (Cardio), No clicks present (Cardio), No murmurs present (Cardio) and No rub (Cardio) RATE: regular rate RHYTHM: regular rhythm HEART SOUNDS: S1 normal heart sound present and S2 normal heart sound present GI: COMMON NORMALS: Normal to inspection, nondistended, normoactive bowel sounds present, Soft to palpation, non-tender, No hepatosplenomegaly present and no masses PALPATION: Yes Soft to palpation and Yes No hepatosplenomegaly present : COMMON NORMALS: Yes no CVA tenderness BLADDER/KIDNEY EXAM: Yes no CVA tenderness Back/Pelvis: COMMON NORMALS: no CVA tenderness Extremity: NARRATIVE EXTREMITY EXAM: Bilateral lower extremities negative for edema Neuro: COMMON NORMALS: patient oriented x3 SENSORIUM/ORIENTATION: Yes alert MENINGEAL SIGNS: Yes no meningeal signs Course Vital Signs: Vital signs: Vital Signs Temperature 97.8 F 04/12/23 13:10 Pulse Rate 95 04/12/23 17:00 Respiratory Rate 12 04/12/23 16:50 Blood Pressure 80/63 04/12/23 17:00 Pulse Oximetry 90 04/12/23 17:00 Oxygen Delivery Me thod Nasal Cannula 04/12/23 17:00 Oxygen Flow Rate 2 04/12/23 17:00 MDM - COVID Medical Decision Making Patient presents ER with complaints of shortness of breath diarrhea nausea vomiting. Patient's is just getting over COVID last week and she had the exact same symptoms. Physical exam was performed lab work was obtained which showed chest x-ray showed bilateral lower lung consolidation greater on the left findings suspicious for infection. Elevated BUN/creatinine at 43 and 2.6, and a mildly elevated BNP of 776. Patient did test positive for COVID. Patient was given 2 L bolus of normal saline due to his elevated BUN and creatinine. Patient be discharged home to follow-up with his PCP. Differential Diagnosis Likely COVID 19, other viral infection and bacterial infection; Unlikely influenza, pneumonia, copd exacerbation, pulmonary embolism, NSTEMI/STEMI, CHF exacerbation, stroke or overdose/intoxication Medical Records I reviewed the patient's medical records. Lab Data I reviewed the patient's lab results. 04/12/23 13:40 04/12/23 13:40 Radiology Impressions Chest X-Ray 04/12/23 14:22 IMPRESSION: Bilateral lower lung consolidation, greater on the left. Findings are suspicious for infection and are new since chest CT 03/02/2023. Laboratory Results WBC 11.3 10^3/uL (4.0-10.0) H 04/12/23 13:40 RBC 4.75 10^6/uL (4.1-5.3) 04/12/23 13:40 Hgb 15.8 g/dL (11.7-16.6) 04/12/23 13:40 Hct 46.7 % (42.0-52.0) 04/12/23 13:40 MCV 98.3 fl (80-94) H 04/12/23 13:40 MCH 33.3 pg (28.0-34.0) 04/12/23 13:40 MCHC 33.8 g/dL (30.0-36.0) 04/12/23 13:40 RDW 14.7 % (12.1-15.1) 04/12/23 13:40 Plt Count 173 10^3/cmm (130-400) 04/12/23 13:40 MPV 11.9 fL (7.4-10.4) H 04/12/23 13:40 Neut % (Auto) 63.9 % 04/12/23 13:40 Lymph % (Auto) 25.2 % 04/12/23 13:40 Barren % (Auto) 9.6 % 04/12/23 13:40 Eos % (Auto) 0.0 % 04/12/23 13:40 Baso % (Auto) 0.2 % 04/12/23 13:40 Neut # (Auto) 7.24 10^3/uL (1.8-7.7) 04/12/23 13:40 Lymph # (Auto) 2.9 10^3/uL (0.8-4.8) 04/12/23 13:40 Barren # (Auto) 1.1 10^3/uL (0.2-0.9) H 04/12/23 13:40 Eos # (Auto) 0.0 10^3/uL (0.0-0.8) 04/12/23 13:40 Baso # (Auto) 0.0 10^3/uL (0.0-0.1) 04/12/23 13:40 Nucleated RBC % (auto) 0 % 04/12/23 13:40 Nucleated RBCs # 0.0 /100WBC 04/12/23 13:40 PT 12.40 SECONDS (12.1-14.9) 04/12/23 13:40 INR 0.90 (0.8-1.2) 04/12/23 13:40 Sodium 137 mmol/L (136-145) 04/12/23 13:40 Potassium 3.9 mmol/L (3.5-5.1) 04/12/23 13:40 Chloride 95 mmol/L (98-107) L 04/12/23 13:40 Carbon Dioxide 24 mmol/L (22-29) 04/12/23 13:40 Anion Gap 21.9 (5-19) H 04/12/23 13:40 BUN 43 mg/dL (8-23) H 04/12/23 13:40 Creatinine 2.6 mg/dL (0.7-1.2) H 04/12/23 13:40 GFR Calculation Not Reportable 04/12/23 13:40 Glucose 160 mg/dL (65-115) H 04/12/23 13:40 Calculated Osmolality 298 mOsm/kg (285-295) H 04/12/23 13:40 Calcium 9.9 mg/dL (8.5-10.5) 04/12/23 13:40 Magnesium 1.8 mg/dL (1.7-2.3) 04/12/23 13:40 Total Bilirubin 1.3 mg/dL (0.15-1.2) H 04/12/23 13:40 AST 57 U/L (0-40) H 04/12/23 13:40 ALT 30 U/L (0-41) 04/12/23 13:40 Alkaline Phosphatase 133 U/L (40-130) H 04/12/23 13:40 NT-Pro-B Natriuret Pep 776 pg/mL (0-450) H 04/12/23 13:40 Total Protein 6.6 g/dL (6.6-8.7) 04/12/23 13:40 Albumin 4.1 g/dL (3.5-5.2) 04/12/23 13:40 Globulin 2.5 g/dL (1.3-4.6) 04/12/23 13:40 SARS-CoV-2 Ag (Rapid) positive (Negative) 04/12/23 13:45 SARS-CoV-2 Antigen (Rapid) positive (Negative) 04/12/23 13:45 Nasal/Oral Coronavirus 2019 PCR Negative 05/25/20 09:14 Discharge Plan Discharge Patient Disposition: Home Clinical Impression: COVID, Acute kidney injury Nausea & vomiting Qualifiers: Vomiting type: unspecified Qualified Code(s): R11.2 - Nausea with vomiting, unspecified Condition: Stable Prescriptions: No Action pantoprazole 20 mg tablet,delayed release (DR/EC) 20 mg PO BID hydrochlorothiazide 25 mg tablet 25 mg PO QAM allopurinol 300 mg tablet 300 mg PO DAILY albuterol sulfate 90 mcg/actuation HFA aerosol inhaler 2 puff INHALATION Q6H PRN (Reason: Wheezing) ranolazine 500 mg tablet extended release 12 hr 500 mg PO BID nitroglycerin [Nitrostat] 0.4 mg tablet, sublingual 0.4 mg sublingual Q5M PRN (Reason: Angina) Rx Instructions: do not exceed 3 doses per episode omega 1-xys-pjd-fish oil 300-1,000 mg capsule 1 cap PO DAILY metoprolol succinate 25 mg tablet extended release 24 hr 50 mg PO DAILY amlodipine 10 mg tablet 5 mg PO DAILY pravastatin 80 mg tablet 40 mg PO DAILY potassium citrate 99 mg capsule 99 mg PO DAILY furosemide 40 mg tablet 40 mg PO DAILY nitroglycerin [Nitrostat] 0.4 mg tablet, sublingual 0.4 mg sublingual Q5M PRN (Reason: chest pain) Qty: 30 3RF ticagrelor 90 mg tablet 90 mg PO BID Qty: 180 3RF isosorbide mononitrate 120 mg tablet extended release 24 hr 120 mg PO DAILY Qty: 90 3RF Rx Instructions: Dose increased (DME) Orthopedic shoes with custom soles supports See Rx Instructions .Route .MEDSUPPLY Qty: 1 0RF Rx Instructions: As directed J P & O aspirin 81 mg Tablet,Chewable 81 mg PO DAILY Discharge Orders: Discharge ED (Routine); Ordered 04/12/23 Ordered By: Tab Chambers Referrals: Antonio Ponce, [Primary Care Provider] - 1 week Discharge Diet: Advance as tolerated and Clear Liquid Patient Instructions: Acute Kidney Injury (DC), Acute Nausea and Vomiting (DC), COVID-19 (Coronavirus Disease 2019) (ED) Activity Restrictions/Additional Instructions: Please push plenty of clear fluids. Please advance diet as tolerated. Please follow-up with your family practice physician in the next 7 to 10 days as needed for further evaluation and treatment. Coding Level of Care Code ED [employer] for 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
--- NOTE | 2023-04-12 14:22 | XRR_ITS ---
PROCEDURE INFORMATION: Exam: XR Chest Exam date and time: 04/12/2023 2:29 PM Age: 83 years old Clinical indication: Shortness of breath; Additional info: Dyspnea, abnormal portable cxr, , radiologist suggested 2v TECHNIQUE: Imaging protocol: Radiologic exam of the chest. Views: 2 views. COMPARISON: 1. CR (CHEST, ) 04/12/2023 1:[address] chest wo con [id number] 03/02/2023 10:42 AM FINDINGS: Lungs: There is ill-defined lower lung opacity bilaterally, greater on the left. Pulmonary opacity projects anteriorly and posteriorly on the lateral view. Pleural spaces: There is no pleural effusion or pneumothorax. Heart/Mediastinum: Cardiomediastinal contours are unremarkable. Bones/joints: Bones are unremarkable. XR/XR chest 2V* [id number] IMPRESSION: Bilateral lower lung consolidation, greater on the left. Findings are suspicious for infection and are new since chest CT 03/02/2023.
[2023-04-12 14:38] LABS: Alanine Aminotransferase 30 U/L (0-41); Albumin Level 4.1 g/dL (3.5-5.2); Alkaline Phosphatase 133 U/L (40-130); Aspartate Amino Transferase 57 U/L (0-40); Blood Urea Nitrogen 43 mg/dL (8-23); Calcium 9.9 mg/dL (8.5-10.5); Carbon Dioxide 24 mmol/L (22-29); Chloride 95 mmol/L (98-107); Globulin 2.5 g/dL (1.3-4.6); Glucose 160 mg/dL (65-115); Magnesium 1.8 mg/dL (1.7-2.3); NT Pro B Type Natriuretic Pept 776 pg/mL (0-450); Osmolality Calculated 298 mOsm/kg (285-295); Sodium 137 mmol/L (136-145); Total Bilirubin 1.3 mg/dL (0.15-1.2); Total Protein 6.6 g/dL (6.6-8.7)
[2023-04-12 14:40] LABS: SARS Covid-2 Antigen positive (Negative)
[2023-04-12 14:41] LABS: Anion Gap 21.9 (5-19); Potassium 3.9 mmol/L (3.5-5.1)
[2023-04-12] MEDS: ipratropium-albuterol 3 mL Neb INHALATION (15:39)
[2023-04-12] MEDS: sodium chloride 0.9% 1,000 ML 999 ML IV ×2 (15:41→16:56)
== END 2023-04-12 18:08 | disposition home or self-care (01) ==
PROVIDERS: Emergency Provider Emergency Medicine; PCP Emergency Medicine Emergency Medical Services
DX: U07.1 COVID-19 (principal); N17.9 Acute kidney failure, unspecified; R11.2 Nausea with vomiting, unspecified; Z79.82 Long term (current) use of aspirin; F17.210 Nicotine dependence, cigarettes, uncomplicated; Z85.048 Personal history of other malignant neoplasm of rectum, rectosigmoid junction, and anus; I12.9 Hypertensive chronic kidney disease with stage 1 through stage 4 chronic kidney disease, or unspecified chronic kidney disease; N18.9 Chronic kidney disease, unspecified; J44.9 Chronic obstructive pulmonary disease, unspecified; E78.5 Hyperlipidemia, unspecified
CPT/HCPCS: 71045; 71046; 80053; 83735; 83880; 85025; 85610; 87426; 94640; 96360; 99284; J7030

== ENCOUNTER 2023-04-14 12:10 | Inpatient (IN) | payer OTHER, SELFPAY ==
[2023-04-14] VITALS (72 sets, daily range): BP systolic 92–126; BP diastolic 42–69; PULSE 72–164; RESP 16–30; TEMP 36.4–36.7; O2SAT 86–97; BMI 31.6
--- NOTE | 2023-04-14 12:58 | XRR_ITS ---
PROCEDURE INFORMATION: Exam: XR Chest Exam date and time: 04/14/2023 1:12 PM Age: 83 years old Clinical indication: Shortness of breath TECHNIQUE: Imaging protocol: Radiologic exam of the chest. Views: 1 view. COMPARISON: CR (CHEST, ) 04/12/2023 2:29 PM FINDINGS: Lungs: Previously seen bilateral infiltrates which remain more prominent on the left are not appreciably changed. No new findings. Pleural spaces: Unremarkable. No pleural effusion. No pneumothorax. Heart/Mediastinum: Unremarkable. No cardiomegaly. Bones/joints: Unremarkable. XR/XR chest 1V portable [id number] IMPRESSION: Unchanged chest x-ray.
--- NOTE | 2023-04-14 13:15 | W.ED.COVID ---
HPI - COVID General: Chief Complaint: COVID symptoms Stated Complaint: weakness/SOB Time Seen by Provider: 04/14/23 12:37 History of Present Illness: 83-year-old male presents emergency department chief complaint of progressive shortness of breath difficulty breathing nausea vomiting and persistent diarrhea patient was recently diagnosed with COVID-19 on April 12. He reports having symptoms of approximate week leading up to that which he presented to the ER patient was given IV fluids with no additional medications per the patient patient presents here with his due to extreme weakness fatigue as well as additional wheezing and shortness of breath patient does not endorse having any chest pain patient has a longstanding history of both cardiac and pulmonary issues. As well as heart failure patient does not endorse any renal issues before patient has reports significant appetite reduction and reduced oral intake. Patient presents to the ER with his present for further evaluation and management. COVID 19 common symptoms: positive productive cough, dyspnea, nausea, vomiting and diarrhea; negative fever(s), chills, fatigue or headache(s) COVID 19 other sytmptoms: negative chest pain COVID Results: SARS-CoV-2 Antigen (Rapid) positive (Negative) 04/12/23 13:45 Nasal/Oral Coronavirus 2019 PCR Negative 05/25/20 09:14 Review of Systems General: Reports: 10 or more systems reviewed and unremarkable except in HPI and below Const: Denies: fever(s), chills, fatigue or malaise Eyes: Denies: change in vision or blurry vision Card: Denies: chest pain or palpitations Resp: Reports: dyspnea, productive cough and wheezing GI: Reports: nausea, vomiting and diarrhea; Denies: abdominal pain : Denies: flank pain Musc: Denies: extremity pain or extremity swelling Skin/Breast: Denies: rash or pruritus Neuro: Denies: headache(s) Psych: Denies: anxiety or depression Golden/Lymph: Denies: easy bleeding All/Imm: Denies: urticaria, throat swelling or facial swelling PFSH ED PFSH: Medical History Anal cancer Anemia ASHD (arteriosclerotic heart disease) Atrial fibrillation Chronic kidney disease COPD (chronic obstructive pulmonary disease) Dyslipidemia (high LDL; low HDL) GERD (gastroesophageal reflux disease) Gout Hyperparathyroidism Hypertension Insomnia Peripheral arterial disease Trigger finger, left ring finger Trigger finger, right ring finger Surgical History H/O cervical spine surgery H/O excision of epidermal inclusion cyst (05/30/20) left chest wall H/O hernia repair History of back surgery Spinal fusion History of cataract surgery History of coronary angioplasty with insertion of stent S/P arterial stent right leg in 2009, left leg in 2017 Status post colonoscopy Family History Other Family history unknown Social History Smoking and tobacco status: current every day smoker (0.5 ppd, smoked x 65+ years) cigarettes Packs smoked per day: 1.5 Alcohol intake: current Alcohol intake frequency: 0-2 Drinks per Day Alcohol type: beer and hard liquor Substance/Drug Use: never Household members: spouse Marital status: Current occupational status: retired Physical Exam Const: COMMON NORMALS: no acute distress, patient oriented x3 and healthy appearing HENMT: COMMON NORMALS: normocephalic and atraumatic HEAD & SCALP: normocephalic and atraumatic Eye: COMMON NORMALS: Equal, round and reactive pupils present and EOMs intact bilaterally PUPIL: Yes Equal, round and reactive pupils present Neck/C-Spine: COMMON NORMALS: full ROM, supple and no JVD Lymph: LYMPHATIC: no lymphadenopathy noted Chest: COMMONS NORMALS: normal inspection of the chest and normal palpation of entire chest wall Resp: COMMON NORMALS: No retractions, No use of accessory muscles (Active expiratory wheezing appreciated bilaterally) and clear to auscultation bilaterally; negative for normal respiratory effort EFFORT & INSPECTION: Yes able to speak in complete sentences and Yes symmetric chest movement AUSCULTATION: clear to auscultation bilaterally Cardio: COMMON NORMALS: no JVD, regular rate and regular rhythm RATE: regular rate RHYTHM: regular rhythm GI: COMMON NORMALS: Soft to palpation and non-tender; negative for Normal to inspection, nondistended, normoactive bowel sounds present (Generalized abdominal tenderness no of motion noted to the epigastrium othe) INSPECTION: Yes normal to inspection PALPATION: Yes Soft to palpation : COMMON NORMALS: Yes no CVA tenderness BLADDER/KIDNEY EXAM: Yes no CVA tenderness Back/Pelvis: COMMON NORMALS: no CVA tenderness Extremity: COMMON NORMALS: normal to inspection and full ROM Neuro: COMMON NORMALS: patient oriented x3, CN's II-XII intact bilaterally, moves all extremities and no focal motor deficits Psych: COMMON NORMALS: mental status grossly normal, Normal thought process present, cooperative and normal affect THOUGHT PROCESS: Normal thought process present Skin: COMMON NORMALS: no rashes or lesions noted GENERAL SKIN EXAM: no rashes or lesions noted Course Vital Signs: Vital signs: Vital Signs Temperature 97.6 F 04/14/23 12:22 Pulse Rate 88 04/14/23 14:50 Respiratory Rate 25 H 04/14/23 14:50 Blood Pressure 122/66 04/14/23 14:50 Pulse Oximetry 88 L 04/14/23 14:50 Oxygen Delivery Me thod Nasal Cannula 04/14/23 14:45 Oxygen Flow Rate 4 04/14/23 14:45 MDM - COVID Medical Decision Making Due to the patient's symptoms and condition IV established basic lab work and imaging will be obtained we will continue to follow. Patient's lab work revealed he is in acute heart failure acute renal failure oxygenation is being 8990% on 4 L nasal cannula discussed the need for admission due to the patient's current status patient is agreeing Dr. Mcmahan is granted acceptance of the patient's case patient be admitted to medical telemetry. Lab Data 04/14/23 12:42 04/14/23 12:42 Radiology Impressions Chest X-Ray 04/14/23 12:58 IMPRESSION: Unchanged chest x-ray. Abdomen Ultrasound 04/14/23 15:16 IMPRESSION: No acute findings. Laboratory Results WBC 11.5 10^3/uL (4.0-10.0) H 04/14/23 12:42 RBC 4.28 10^6/uL (4.1-5.3) 04/14/23 12:42 Hgb 14.4 g/dL (11.7-16.6) 04/14/23 12:42 Hct 41.8 % (42.0-52.0) L 04/14/23 12:42 MCV 97.7 fl (80-94) H 04/14/23 12:42 MCH 33.6 pg (28.0-34.0) 04/14/23 12:42 MCHC 34.4 g/dL (30.0-36.0) 04/14/23 12:42 RDW 14.6 % (12.1-15.1) 04/14/23 12:42 Plt Count 185 10^3/cmm (130-400) 04/14/23 12:42 MPV 11.6 fL (7.4-10.4) H 04/14/23 12:42 Neut % (Auto) 68.5 % 04/14/23 12:42 Lymph % (Auto) 26.0 % 04/14/23 12:42 [place] % (Auto) 4.5 % 04/14/23 12:42 Eos % (Auto) 0.1 % 04/14/23 12:42 Baso % (Auto) 0.1 % 04/14/23 12:42 Neut # (Auto) 7.91 10^3/uL (1.8-7.7) H 04/14/23 12:42 Lymph # (Auto) 3.0 10^3/uL (0.8-4.8) 04/14/23 12:42 [place] # (Auto) 0.5 10^3/uL (0.2-0.9) 04/14/23 12:42 Eos # (Auto) 0.0 10^3/uL (0.0-0.8) 04/14/23 12:42 Baso # (Auto) 0.0 10^3/uL (0.0-0.1) 04/14/23 12:42 Nucleated RBC % (auto) 0 % 04/14/23 12:42 Nucleated RBCs # 0.0 /100WBC 04/14/23 12:42 D-Dimer 2.27 ug/mIFEU (0-0.59) H 04/14/23 12:42 Sodium 136 mmol/L (136-145) 04/14/23 12:42 Potassium 3.6 mmol/L (3.5-5.1) 04/14/23 12:42 Chloride 97 mmol/L (98-107) L 04/14/23 12:42 Carbon Dioxide 23 mmol/L (22-29) 04/14/23 12:42 Anion Gap 19.6 (5-19) H 04/14/23 12:42 BUN 43 mg/dL (8-23) H 04/14/23 12:42 Creatinine 2.1 mg/dL (0.7-1.2) H 04/14/23 12:42 GFR Calculation Not Reportable 04/14/23 12:42 Glucose 120 mg/dL (65-115) H 04/14/23 12:42 Calculated Osmolality 294 mOsm/kg (285-295) 04/14/23 12:42 Lactic Acid 2.7 mmol/L (0.5-2.2) H 04/14/23 12:42 Calcium 9.6 mg/dL (8.5-10.5) 04/14/23 12:42 Total Bilirubin 1.7 mg/dL (0.15-1.2) H 04/14/23 12:42 AST 79 U/L (0-40) H 04/14/23 12:42 ALT 35 U/L (0-41) 04/14/23 12:42 Alkaline Phosphatase 122 U/L (40-130) 04/14/23 12:42 Lactate Dehydrogenase 539 U/L (135-225) H 04/14/23 12:42 Troponin T Baseline 49 ng/L (0-15) H 04/14/23 12:42 Troponin T 120 Minute 39.59 ng/L (0-15) H 04/14/23 14:59 Delta Troponin T -9.41 ABS# (0-10) L 04/14/23 14:59 C-Reactive Protein 179.2 mg/L (0.0-4.9) H 04/14/23 12:42 NT-Pro-B Natriuret Pep 1344 pg/mL (0-450) H 04/14/23 12:42 Total Protein 6.3 g/dL (6.6-8.7) L 04/14/23 12:42 Albumin 3.8 g/dL (3.5-5.2) 04/14/23 12:42 Globulin 2.5 g/dL (1.3-4.6) 04/14/23 12:42 Procalcitonin 0.28 ng/mL (0-0.5) 04/14/23 12:42 SARS-CoV-2 Antigen (Rapid) positive (Negative) 04/12/23 13:45 Nasal/Oral Coronavirus 2019 PCR Negative 05/25/20 09:14 Discharge Plan Discharge Patient Disposition: Admitted As Inpatient Clinical Impression: COVID-19, CHF exacerbation, Acute renal failure, Hypoxia Condition: Stable Coding Level of Care Code ED 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
--- NOTE | 2023-04-14 13:17 | ECG_ITS ---
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 Measurements Intervals [place] Rate: 90 P: 0 MI: 0 QRS: 48 QRSD: 94 T: -31 QT: 385 QTc: 471 Interpretive Statements ATRIAL FIBRILLATION NONSPECIFIC ST & T-WAVE ABNORMALITY Compared to ECG 03/30/2023 15:34:35 No significant changes Electronically Signed On 04-14-2023 20:26:42 CDT by Jose Manuel Whitman M.D. [id number]
[2023-04-14 13:19] LABS: Basophils % 0.1 %; Eosinophils % 0.1 %; Hematocrit 41.8 % (42.0-52.0); Hemoglobin 14.4 g/dL (11.7-16.6); Mean Corpuscular HGB Conc 34.4 g/dL (30.0-36.0); Mean Corpuscular Hemoglobin 33.6 pg (28.0-34.0); Mean Corpuscular Volume 97.7 fl (80-94); Mean Platelet Volume 11.6 fL (7.4-10.4); Monocytes # 0.5 10^3/uL (0.2-0.9); Monocytes % 4.5 %; Neutrophils # 7.91 10^3/uL (1.8-7.7); Neutrophils % 68.5 %; Nucleated Red Blood Cells % 0 %; Platelet Count 185 10^3/cmm (130-400); Red Blood Count 4.28 10^6/uL (4.1-5.3); Red Cell Distribution Width 14.6 % (12.1-15.1); White Blood Count 11.5 10^3/uL (4.0-10.0)
[2023-04-14] MEDS: sodium chloride 0.9% 500 ML IV (13:22)
[2023-04-14] MEDS: dexamethasone 10 mg/mL INJ IVP (13:22)
[2023-04-14] MEDS: ondansetron 2 mg/ML SDV 2 mL 4 MG IVP (13:22)
[2023-04-14 13:27] LABS: Lactic Sepsis W/Reflex 2.7 mmol/L (0.5-2.2)
[2023-04-14 13:34] LABS: Troponin(5th) Baseline 49 ng/L (0-15)
[2023-04-14 13:38] LABS: NT Pro B Type Natriuretic Pept 1344 pg/mL (0-450); Procalcitonin 0.28 ng/mL (0-0.5)
[2023-04-14 13:50] LABS: Alanine Aminotransferase 35 U/L (0-41); Albumin Level 3.8 g/dL (3.5-5.2); Alkaline Phosphatase 122 U/L (40-130); Aspartate Amino Transferase 79 U/L (0-40); Blood Urea Nitrogen 43 mg/dL (8-23); C Reactive Protein 179.2 mg/L (0.0-4.9); Calcium 9.6 mg/dL (8.5-10.5); Carbon Dioxide 23 mmol/L (22-29); Chloride 97 mmol/L (98-107); Globulin 2.5 g/dL (1.3-4.6); Glucose 120 mg/dL (65-115); Osmolality Calculated 294 mOsm/kg (285-295); Sodium 136 mmol/L (136-145); Total Bilirubin 1.7 mg/dL (0.15-1.2); Total Protein 6.3 g/dL (6.6-8.7)
[2023-04-14 13:51] LABS: Anion Gap 19.6 (5-19); Potassium 3.6 mmol/L (3.5-5.1)
[2023-04-14] MEDS: ipratropium-albuterol 3 mL Neb INHALATION ×2 (13:51→20:35)
[2023-04-14 13:53] LABS: Lactate Dehydrogenase 539 U/L (135-225)
[2023-04-14 15:00] LABS: Reflex Lactate Order REFLEX LACTIC ORDERD
--- NOTE | 2023-04-14 15:16 | USR_ITS ---
PROCEDURE INFORMATION: Exam: US Abdomen, Limited; Right Upper Quadrant Exam date and time: 04/14/2023 3:36 PM Age: 83 years old Clinical indication: Abnormal findings; Abnormal lab test; Elevated liver enzymes; Additional info: Elevated lft TECHNIQUE: Imaging protocol: Real time ultrasound of the abdomen with image documentation. Limited exam focused on the right upper quadrant. COMPARISON[place] [id number] 09/09/2022 12:38 PM FINDINGS: Liver: Liver is normal in size measuring 15.2 cm in length. No mass. No ascites. Normal directional flow in the portal vein Gallbladder: Normal. No gallstones. There is no gallbladder wall thickening. Biliary ducts: Normal. No stones. No dilation. Pancreas: Obscured by bowel gas Right kidney: Normal. No mass. No hydronephrosis. US/US abdomen limited [id number] IMPRESSION: No acute findings.
[2023-04-14 15:47] LABS: Troponin 5 2HR 39.59 ng/L (0-15)
[2023-04-14 15:53] LABS: Troponin 5 2HR Delta -9.41 ABS# (0-10)
[2023-04-14 15:54] LABS: D Dimer 2.27 ug/mIFEU (0-0.59)
--- NOTE | 2023-04-14 16:09 | ECG_ITS ---
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 Measurements Intervals [place] Rate: 87 P: 0 ME: 0 QRS: 40 QRSD: 89 T: 0 QT: 380 QTc: 459 Interpretive Statements ATRIAL FIBRILLATION NONSPECIFIC ST & T-WAVE ABNORMALITY ABNORMAL RHYTHM ECG Compared to ECG 04/14/2023 13:17:12 No significant changes Electronically Signed On 04-14-2023 20:30:58 CDT by Jose Manuel Whitman M.D. [id number]
--- NOTE | 2023-04-14 16:47 | P.HP_ITS ---
Providers/Chief Complaint Primary Care Provider: Antonio Ponce DO Chief Complaint: weakness/SOB/poss covid History of Present Illness Pleasant 83-year-old female with history of CAD, multiple stents, on aspirin, Brilinta, CKD, COPD, not normally on oxygen, GERD, HTN, A-fib, not on anticoagulation, PAD, anemia, anal cancer, other comorbidities, current smoker, return to the hospital after earlier visit to ER on 04/12, with diagnosis of COVID-19, with his having gone to the illness herself shortly before. He returns due to persistent/worsening shortness of breath, during last visit in ER started on 2 L nasal cannula oxygen, currently requiring 4 L. Continues to have cough, cough is productive of grayish phlegm. Also having diarrhea today. Denies chest pain. Denies pleuritic discomfort. Review of Systems Const: Reports: malaise ENMT: Denies: throat pain Card: Denies: chest pain, edema, pre-syncope or dyspnea on exertion Resp: Reports: dyspnea and productive cough; Denies: change in phlegm color or hemoptysis GI: Reports: diarrhea; Denies: abdominal pain, nausea, vomiting, constipation, hematochezia or melena : Denies: flank pain, difficulty urinating, urinary frequency or hematuria Musc: Denies: back pain, joint swelling or joint redness Skin/Breast: Denies: rash or new lesions Neuro: Denies: headache(s) Medications/Allergies Home Medications Medication Instructions Recorded Confirmed Last Taken Type hydrochlorothiazide 25 mg tablet 25 mg PO QAM 09/28/19 04/14/23 04/14/23 History pantoprazole 20 mg tablet,delayed 20 mg PO BID 09/28/19 04/14/23 04/14/23 History release albuterol sulfate 90 mcg/actuation 2 puff inhalation Q6H PRN Wheezing 05/22/20 04/14/23 04/14/23 History aerosol inhaler allopurinol 300 mg tablet 300 mg PO DAILY 05/28/20 04/14/23 04/14/23 History aspirin 81 mg chewable tablet 81 mg PO DAILY 05/30/20 04/14/23 04/14/23 History ticagrelor 90 mg tablet 90 mg PO BID #180 tabs 09/03/20 04/14/23 04/14/23 Rx ranolazine 500 mg tablet,extended 500 mg PO BID 12/20/20 04/14/23 04/14/23 History release,12 hr isosorbide mononitrate 120 mg 120 mg PO DAILY #90 tabs 07/08/21 04/14/23 04/14/23 Rx tablet,extended release 24 hr omega 7-drg-mph-fish oil 300 1 cap PO DAILY 03/31/22 04/14/23 04/14/23 History mg-1,000 mg capsule amlodipine 10 mg tablet 5 mg PO DAILY 06/05/22 04/14/23 04/14/23 History metoprolol succinate 25 mg 50 mg PO DAILY 06/05/22 04/14/23 04/14/23 History tablet,extended release 24 hr potassium citrate 99 mg capsule 99 mg PO DAILY 06/05/22 04/14/23 04/14/23 History pravastatin 80 mg tablet 40 mg PO DAILY 06/05/22 04/14/23 04/14/23 History Orthopedic shoes with custom soles #1 ea 11/11/22 04/14/23 Unknown Rx supports furosemide 40 mg tablet 40 mg PO DAILY 03/30/23 04/14/23 04/14/23 History nitroglycerin 0.4 mg sublingual 0.4 mg sublingual Q5M PRN chest 03/30/23 04/14/23 Unknown Rx tablet (Nitrostat) pain #30 tabs Allergies Allergy/AdvReac Type Severity Reaction Status Date / Time No Known Allergies Allergy Verified 04/14/23 12:22 PFSH Acute PFSH: Medical History (Updated 04/14/23 @ 17:08 by Micha Mcmahan MD) Anal cancer Anemia ASHD (arteriosclerotic heart disease) Atrial fibrillation Chronic kidney disease COPD (chronic obstructive pulmonary disease) Dyslipidemia (high LDL; low HDL) GERD (gastroesophageal reflux disease) Gout Hyperparathyroidism Hypertension Insomnia Peripheral arterial disease Smoking addiction Trigger finger, left ring finger Trigger finger, right ring finger Surgical History H/O cervical spine surgery H/O excision of epidermal inclusion cyst (05/30/20) left chest wall H/O hernia repair History of back surgery Spinal fusion History of cataract surgery History of coronary angioplasty with insertion of stent S/P arterial stent right leg in 2009, left leg in 2017 Status post colonoscopy Family History Other Family history unknown Social History Smoking and tobacco status: current every day smoker (0.5 ppd, smoked x 65+ years) cigarettes Packs smoked per day: 1.5 Alcohol intake: current Alcohol intake frequency: 0-2 Drinks per Day Alcohol type: beer and hard liquor Substance/Drug Use: never Household members: spouse Marital status: Current occupational status: retired Vitals/I&O/Wt Last Vital Signs Temp 97.6 F 04/14/23 12:22 Pulse 82 04/14/23 16:35 Resp 22 H 04/14/23 16:35 BP 104/49 04/14/23 16:35 Pulse Ox 93 04/14/23 16:35 O2 Del Method Nasal Cannula 04/14/23 14:45 O2 Flow Rate 4 04/14/23 14:45 Weight last 48 hrs Weight 97.069 kg Physical Exam Const: COMMON NORMALS: patient oriented x3 and alert GENERAL APPEARANCE: cooperative ORIENTATION/CONSCIOUSNESS: Yes awake HENMT: COMMON NORMALS: oropharynx normal Neck/C-Spine: COMMON NORMALS: no JVD Resp: COMMON NORMALS: normal respiratory effort and clear to auscultation bilaterally AUSCULTATION: clear to auscultation bilaterally Cardio: COMMON NORMALS: no JVD, regular rhythm, S1 normal heart sound present, S2 normal heart sound present and No murmurs present (Cardio) RHYTHM: regular rhythm HEART SOUNDS: S1 normal heart sound present and S2 normal heart sound present GI: COMMON NORMALS: Normal to inspection, nondistended, normoactive bowel sounds present, Soft to palpation and non-tender PALPATION: Yes Soft to palpation Extremity: COMMON NORMALS: no joint enlargement and no pedal edema Neuro: COMMON NORMALS: patient oriented x3 and moves all extremities SENSOR IUM/ORIENTATION: Yes alert Skin: COMMON NORMALS: no rashes or lesions noted GENERAL SKIN EXAM: no rashes or lesions noted Data 04/14/23 12:42 04/14/23 12:42 A&P Assessment and plan (1) COVID-19: Severe COVID-19, concern for respiratory failure, with worsening oxygen requirement, requiring 4 L nasal cannula oxygen currently. Not normally on oxygen. Tachypnea, output 24 bpm. With underlying COPD, CAD, CKD. Chest x-ray noted unremarkable. He is having productive cough, with cruz-colored phlegm. Denies pleuritic discomfort. D-dimer requested noted abnormal at 2.27. Assess lower extremity duplex ultrasound for any DVT. Suspect likely secondary to COVI D-19, monitor for symptoms suggestive of PE. Lovenox 40 mg subcu daily. Discussed with him and his regarding treatment, continue Decadron 6 mg daily. Remdesivir. Breathing treatments, expectorant, antitussives. gives history that he is additionally having diarrhea. Antidiarrheals as needed. Discussed with him and his risk of decompensation, worsening condition, risks of VTE, risks of cardiovascular disease including HI associated with COVID-19. (2) Acute kidney injury: Suspect prerenal secondary to overdiuresis. He does appear slightly on the dry side. Did receive IV fluid during last ER visit, with some noted improvement in creatinine from 2.6 down to 2.1. Hold diuretics for now. Reassess renal function. We will hold off additional hydration for now given severe COVID-19. (3) Elevated d-dimer: Likely secondary to COVID-19. Does not have symptoms of PE at this time, however, will trend D-dimer. Lovenox 40 mg daily. Lower extremity duplex to assess for DVT. (4) Hyperbilirubinemia: Suspect similarly secondary to overdiuresis with resultant cholestasis. No abdominal pain. No RLQ tenderness. Noted RUQ abdominal ultrasound without acute findings. Reassess CMP. (5) Lactic acidosis: Suspect secondary to worsening respiratory status, hypoxia, COVID-19. Repeat noted down to 2. (6) ASHD (arteriosclerotic heart disease): History of multiple prior stents, continue aspirin, Brilinta, statin, beta- marvin. Was being referred for outpatient assessment by stress test. (7) Smoking addiction: Encourage cessation. Nicotine patch, lozenges as needed. (8) COPD (chronic obstructive pulmonary disease): Possible component of COPD exacerbation, with productive cough, dyspnea, hypoxia. Decadron as above. Collect urine culture. MRSA PCR. Continue oxygen support, wean down as tolerating. DuoNebs. Plan CKD GERD HTN A-fib not on anticoagulation PAD Anemia Remote history of anal cancer Other comorbidities Discussed with ER physician. ER documentation reviewed. Attestations Medical Necessity Statement*: Admission of over 2 midnights anticipated for assessment management of severe COVID-19 with worsening hypoxia Diagnoses COVID-19 U07.1 Acute kidney injury N17.9 Elevated d-dimer R79.89 Hyperbilirubinemia E80.6 Lactic acidosis E87.20 ASHD (arteriosclerotic heart disease) I25.10 Smoking addiction F17.200 COPD (chronic obstructive pulmonary disease) J44.9
[2023-04-14 17:46] LABS: Add Urine Culture? No; Add Urine Microscopic? YES; Bilirubin Urine Neg (Negative); Blood Urine 2+ (Negative); Fine Granular Casts Urine 0-4 /lpf; Glucose Urine UA Norm (Normal); Ketones Urine Negative (Negative); Leukocyte Esterase Urine Negative (Negative); Mucus Urine 1+ /hpf; Nitrate Urine Negative (Negative); Protein Urine Trace (Negative); Specific Gravity, Urine 1.015 (1.005-1.030); Squamous Epithelial Cell Urine 0-4 /hpf (0-5); Urine Appearance Clear (CLEAR); Urine Color Yellow (Yellow); Urobilinogen Urine Norm (Negative); WBC Urine 0-4 /hpf (0-5); pH Urine 5 (5-7)
[2023-04-14 19:30] LABS: Troponin 5 6HR 38.12 ng/L (0-15)
--- NOTE | 2023-04-14 20:01 | USCV_ITS ---
GretchenWolf Age: 83 Gender: M : 1940 Exam Date: 04/14/2023 21:29 Ordering Phys: Micha Mcmahan MD Technologist: MORIS Exam Location: [facility] [place] Indication: COVID isolation, wheezing, short of breath, assess for DVT. HISTORY: COVID isolation, wheezing, short of breath, assess for DVT. PROCEDURES: Venous duplex imaging was performed in bilateral lower extremities. The following venous structures were evaluated: common femoral vein, profunda vein, proximal portion of the greater saphenous vein, superficial femoral vein, and the popliteal vein. In addition, the posterior tibial and peroneal veins were evaluated. FINDINGS: Normal 2-D Doppler and augmentation and compressibility throughout the lower extremity venous structures. Additional imaging through the proximal calf veins also reveals no thrombus. Limited evaluation of the greater saphenous vein is patent with no thrombus. CONCLUSIONS No DVT bilateral lower extremities. Dr. Lisette Bain DO (Electronically Signed) Final Date: 15 April 2023 05:56 S
--- NOTE | 2023-04-14 20:44 | ECG_ITS ---
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 Measurements Intervals [place] Rate: 79 P: 0 [place]: 0 QRS: 55 QRSD: 85 T: 0 QT: 380 QTc: 437 Interpretive Statements ATRIAL FIBRILLATION NONSPECIFIC ST & T-WAVE ABNORMALITY ABNORMAL RHYTHM ECG Compared to ECG 04/14/2023 16:09:04 No significant changes Electronically Signed On 04-15-2023 23:29:38 CDT by Jose Manuel Whitman M.D. [id number]
[2023-04-14] MEDS: guaiFENesin 600 mg Tablet 1200 MG PO (21:03)
[2023-04-14] MEDS: ranolazine (12HR) 500 mg Tablet PO (21:03)
[2023-04-14] MEDS: enoxaparin 40 mg/0.4 mL Syringe SUBCUT (21:03)
[2023-04-14] MEDS: ticagrelor 90 mg Tablet PO (21:03)
[2023-04-14] MEDS: remdesivir 200 MG in sodium chloride 0.9% (100 ml) 60 ML 100 MG IV (21:14)
[2023-04-15] VITALS (15 sets, daily range): BP systolic 112–156; BP diastolic 58–81; PULSE 69–86; RESP 14–20; TEMP 36.4–36.9; O2SAT 87–98
[2023-04-15 04:52] LABS: Basophils % 0.1 %; Hematocrit 40.7 % (42.0-52.0); Hemoglobin 14.1 g/dL (11.7-16.6); Lymphocytes # 2.7 10^3/uL (0.8-4.8); Lymphocytes % 30.4 %; Mean Corpuscular HGB Conc 34.6 g/dL (30.0-36.0); Mean Corpuscular Hemoglobin 33.7 pg (28.0-34.0); Mean Corpuscular Volume 97.1 fl (80-94); Mean Platelet Volume 11.5 fL (7.4-10.4); Monocytes # 0.3 10^3/uL (0.2-0.9); Monocytes % 3.6 %; Neutrophils # 5.75 10^3/uL (1.8-7.7); Nucleated Red Blood Cells % 0 %; Platelet Count 165 10^3/cmm (130-400); Red Blood Count 4.19 10^6/uL (4.1-5.3); Red Cell Distribution Width 14.6 % (12.1-15.1); White Blood Count 8.9 10^3/uL (4.0-10.0)
[2023-04-15 05:05] LABS: D Dimer 2.08 ug/mIFEU (0-0.59)
[2023-04-15 05:14] LABS: Alanine Aminotransferase 31 U/L (0-41); Albumin Level 3.3 g/dL (3.5-5.2); Alkaline Phosphatase 107 U/L (40-130); Blood Urea Nitrogen 45 mg/dL (8-23); Calcium 9.3 mg/dL (8.5-10.5); Carbon Dioxide 22 mmol/L (22-29); Chloride 102 mmol/L (98-107); Globulin 2.2 g/dL (1.3-4.6); Glucose 261 mg/dL (65-115); Osmolality Calculated 307 mOsm/kg (285-295); Sodium 138 mmol/L (136-145); Total Protein 5.5 g/dL (6.6-8.7)
[2023-04-15 05:15] LABS: Anion Gap 17.3 (5-19); Aspartate Amino Transferase 64 U/L (0-40); Potassium 3.3 mmol/L (3.5-5.1)
[2023-04-15] MEDS: guaiFENesin 600 mg Tablet 1200 MG PO ×2 (08:19→18:28)
[2023-04-15] MEDS: aspirin 81 mg Chew Tablet PO (08:19)
[2023-04-15] MEDS: atorvastatin 40 mg Tablet 20 MG PO (08:19)
[2023-04-15] MEDS: pantoprazole DR 40 mg Tablet 20 MG PO ×2 (08:19→18:28)
[2023-04-15] MEDS: ranolazine (12HR) 500 mg Tablet PO ×2 (08:19→18:28)
[2023-04-15] MEDS: allopurinol 300 mg Tablet PO (08:19)
[2023-04-15] MEDS: ticagrelor 90 mg Tablet PO ×2 (08:19→18:28)
[2023-04-15] MEDS: metoprolol succinate ER (24 HR) 50 mg Tablet PO (08:19)
[2023-04-15] MEDS: dexamethasone 10 mg/mL INJ 6 MG IVP (08:20)
[2023-04-15] MEDS: ipratropium-albuterol 3 mL Neb INHALATION ×3 (08:22→20:05)
--- NOTE | 2023-04-15 13:10 | P.PN_ITS ---
Subjective Subjective: He is feeling slightly better. He is still coughing. Bringing up some clear/grayish phlegm. Was able to provide a sample. No further diarrhea. Denies headache, nausea or vomiting. Vitals/I&O/Wt Last Vital Signs Temp 97.6 F 04/15/23 07:18 Pulse 81 04/15/23 11:16 Resp 19 H 04/15/23 11:16 BP 124/58 04/15/23 11:16 Pulse Ox 93 04/15/23 11:16 O2 Del Method Aerosol Mask 04/15/23 11:16 O2 Flow Rate 5 04/15/23 04:00 04/14/23 04/15/23 04/15/23 22:59 06:59 14:59 Intake Total 600 / 600 480 / 480 Balance 600 / 600 480 / 480 Weight last 48 hrs Weight 97.069 kg Physical Exam Const: COMMON NORMALS: patient oriented x3 and alert GENERAL APPEARANCE: cooperative ORIENTATION/CONSCIOUSNESS: Yes awake OTHER: Ill-appearing. HENMT: COMMON NORMALS: oropharynx normal Neck/C-Spine: COMMON NORMALS: no JVD Resp: COMMON NORMALS: normal respiratory effort and clear to auscultation bilaterally AUSCULTATION: clear to auscultation bilaterally Cardio: COMMON NORMALS: no JVD, regular rhythm, S1 normal heart sound present, S2 normal heart sound present and No murmurs present (Cardio) RHYTHM: regular rhythm HEART SOUNDS: S1 normal heart sound present and S2 normal heart sound present GI: COMMON NORMALS: Normal to inspection, nondistended, normoactive bowel sounds present, Soft to palpation and non-tender PALPATION: Yes Soft to palpation Extremity: COMMON NORMALS: no joint enlargement and no pedal edema Neuro: COMMON NORMALS: patient oriented x3 and moves all extremities SENSORIUM/ORIENTATION: Yes alert Skin: COMMON NORMALS: no rashes or lesions noted GENERAL SKIN EXAM: no rashes or lesions noted Data 04/15/23 04:27 04/15/23 04:27 Micro: Microbiology 04/14/23 21:00 MRSA Culture - Final Nose A&P Assessment and plan (1) COVID-19: Still hypoxic, 5 L oxygen mask. Cough. Continue Decadron, remdesivir, antitussives. Expectorant. Add flutter valve. Tachypnea slightly better. No further diarrhea. D-dimer noted 2.08. Follow-up. Otherwise afebrile, without leukocytosis. Not suspecting so far additional superimposed bacterial pneumonia. Continue to monitor. At risk of superinfection. At risk of cardiac complications, with underlying CAD, other complications including VTE. Continue Lovenox 40 mg subcu daily. Troponin trend noted, mild elevation with flat trend. EKG atrial fibrillation, without obvious ischemic changes on my review. Discussed with case management. (2) Acute kidney injury: Slightly better, creatinine down to 1.9. BUN 45. Continue to hold diuretic. Electrolytes noted sodium 138, potassium mildly low 2.3. We will give replacement. Follow-up chemistry. Suspect prerenal secondary to overdiuresis. He does appear slightly on the dry side. Did receive IV fluid during last ER visit, with some noted improvement in creatinine from 2.6 down to 2.1. Hold diuretics for now. Reassess renal function. We will hold off additional hydration for now given severe COVID-19. (3) Elevated d-dimer: Likely secondary to COVID-19. Does not have symptoms of PE at this time, however, will trend D-dimer. Lovenox 40 mg daily. Lower extremity duplex to assess for DVT. (4) Hyperbilirubinemia: Resolved. Follow-up liver parameters. Suspect similarly secondary to overdiuresis with resultant cholestasis. No abdominal pain. No RLQ tenderness. Noted RUQ abdominal ultrasound without acute findings. Reassess CMP. (5) Lactic acidosis: Suspect secondary to worsening respiratory status, hypoxia, COVID-19. Repeat noted down to 2. (6) ASHD (arteriosclerotic heart disease): History of multiple prior stents, continue aspirin, Brilinta, statin, beta- marvin. Was being referred for outpatient assessment by stress test. (7) Smoking addiction: Encourage cessation. Nicotine patch, lozenges as needed. (8) COPD (chronic obstructive pulmonary disease): Possible component of COPD exacerbation, with productive cough, dyspnea, hypoxia. Decadron as above. Collect urine culture. MRSA PCR. Continue oxygen support, wean down as tolerating. DuoNebs. Plan CKD GERD HTN A-fib not on anticoagulation PAD Anemia Remote history of anal cancer Other comorbidities Discussed with ER physician. ER documentation reviewed. Attestations Medical Necessity Statement*: Continue admission for assessment management of minimally improved respiratory failure with severe COVID-19. Diagnoses COVID-19 U07.1 Acute kidney injury N17.9 Elevated d-dimer R79.89 Hyperbilirubinemia E80.6 Lactic acidosis E87.20 ASHD (arteriosclerotic heart disease) I25.10 Smoking addiction F17.200 COPD (chronic obstructive pulmonary disease) J44.9
[2023-04-15] MEDS: potassium chloride ER 20 mEq Tablet PO (14:59)
[2023-04-15] MEDS: remdesivir 100 MG in sodium chloride 0.9% (100 ml) 80 ML IV (18:28)
--- NOTE | 2023-04-15 19:39 | PC.NURSE ---
Patient refusing hospital gown and states wants to stay in own clothes.
[2023-04-15] MEDS: enoxaparin 40 mg/0.4 mL Syringe SUBCUT (19:43)
--- NOTE | 2023-04-15 19:46 | PC.NURSE ---
Patient states he gets short of breath when ambulating to toilet. Patient offered bedside commode and refused, stating I need the exercise.
[2023-04-16] VITALS (11 sets, daily range): BP systolic 111–138; BP diastolic 60–70; PULSE 75–109; RESP 16–24; TEMP 35.7–36.4; O2SAT 89–98
[2023-04-16] MEDS: acetaminophen 325 mg Tablet 650 MG PO (00:08)
[2023-04-16 04:24] LABS: Basophils % 0.2 %; Hematocrit 44.9 % (42.0-52.0); Hemoglobin 15.6 g/dL (11.7-16.6); Lymphocytes # 3.4 10^3/uL (0.8-4.8); Lymphocytes % 16.6 %; Mean Corpuscular HGB Conc 34.7 g/dL (30.0-36.0); Mean Corpuscular Volume 97.8 fl (80-94); Mean Platelet Volume 11.5 fL (7.4-10.4); Monocytes # 0.9 10^3/uL (0.2-0.9); Monocytes % 4.5 %; Neutrophils # 15.52 10^3/uL (1.8-7.7); Neutrophils % 76.8 %; Nucleated Red Blood Cells % 0 %; Platelet Count 220 10^3/cmm (130-400); Red Blood Count 4.59 10^6/uL (4.1-5.3); Red Cell Distribution Width 14.6 % (12.1-15.1); White Blood Count 20.2 10^3/uL (4.0-10.0)
[2023-04-16 04:40] LABS: D Dimer 2.98 ug/mIFEU (0-0.59)
[2023-04-16 04:44] LABS: Alanine Aminotransferase 35 U/L (0-41); Albumin Level 3.6 g/dL (3.5-5.2); Alkaline Phosphatase 132 U/L (40-130); Aspartate Amino Transferase 53 U/L (0-40); Blood Urea Nitrogen 49 mg/dL (8-23); Calcium 9.7 mg/dL (8.5-10.5); Carbon Dioxide 24 mmol/L (22-29); Chloride 102 mmol/L (98-107); Globulin 2.3 g/dL (1.3-4.6); Glucose 184 mg/dL (65-115); Osmolality Calculated 314 mOsm/kg (285-295); Sodium 143 mmol/L (136-145); Total Bilirubin 0.8 mg/dL (0.15-1.2); Total Protein 5.9 g/dL (6.6-8.7)
[2023-04-16 04:50] LABS: Anion Gap 20.3 (5-19); Potassium 3.3 mmol/L (3.5-5.1)
[2023-04-16] MEDS: ipratropium-albuterol 3 mL Neb INHALATION ×3 (07:57→19:56)
[2023-04-16] MEDS: metoprolol succinate ER (24 HR) 50 mg Tablet PO (09:37)
[2023-04-16] MEDS: aspirin 81 mg Chew Tablet PO (09:37)
[2023-04-16] MEDS: ranolazine (12HR) 500 mg Tablet PO ×2 (09:37→17:43)
[2023-04-16] MEDS: atorvastatin 40 mg Tablet 20 MG PO (09:37)
[2023-04-16] MEDS: guaiFENesin 600 mg Tablet 1200 MG PO ×2 (09:37→17:43)
[2023-04-16] MEDS: allopurinol 300 mg Tablet PO (09:37)
[2023-04-16] MEDS: ticagrelor 90 mg Tablet PO ×2 (09:38→17:44)
[2023-04-16] MEDS: dexamethasone 10 mg/mL INJ 6 MG IVP (09:38)
[2023-04-16] MEDS: pantoprazole DR 40 mg Tablet 20 MG PO ×2 (09:38→17:43)
--- NOTE | 2023-04-16 11:09 | P.PN_ITS ---
Subjective Subjective: Today he is feeling somewhat better. Not quite as miserable. Still some cough. No diarrhea. No headache nausea or vomiting. Vitals/I&O/Wt Last Vital Signs Temp 97.5 F L 04/16/23 04:00 Pulse 82 04/16/23 08:06 Resp 17 04/16/23 08:00 BP 129/68 04/16/23 08:00 Pulse Ox 89 L 04/16/23 08:00 O2 Del Method Room Air 04/16/23 08:00 O2 Flow Rate 3 04/15/23 20:06 04/15/23 04/16/23 04/16/23 22:59 06:59 14:59 Intake Total 460 / 940 Output Total 500 / 500 675 / 1175 Balance -40 / 440 -675 / -235 Weight last 48 hrs Weight 97.069 kg Physical Exam Const: COMMON NORMALS: patient oriented x3 and alert GENERAL APPEARANCE: cooperative ORIENTATION/CONSCIOUSNESS: Yes awake OTHER: Appears slightly more energetic HENMT: COMMON NORMALS: oropharynx normal Neck/C-Spine: COMMON NORMALS: no JVD Resp: COMMON NORMALS: normal respiratory effort and clear to auscultation bilaterally AUSCULTATION: clear to auscultation bilaterally Cardio: COMMON NORMALS: no JVD, regular rhythm, S1 normal heart sound present, S2 normal heart sound present and No murmurs present (Cardio) RHYTHM: regular rhythm HEART SOUNDS: S1 normal heart sound present and S2 normal heart sound present GI: COMMON NORMALS: Normal to inspection, nondistended, normoactive bowel sounds present, Soft to palpation and non-tender PALPATION: Yes Soft to palpation Extremity: COMMON NORMALS: no joint enlargement and no pedal edema Neuro: COMMON NORMALS: patient oriented x3 and moves all extremities SENSORIUM/ORIENTATION: Yes alert Skin: COMMON NORMALS: no rashes or lesions noted GENERAL SKIN EXAM: no carmen hes or lesions noted Data 04/16/23 03:50 04/16/23 03:50 Micro: Microbiology 04/14/23 21:00 MRSA Culture - Final Nose A&P Assessment and plan (1) COVID-19: Hypoxia with some improvement. Was coming down to 3 L oxygen support, on room air saturation 87-89%. Continue to wean down support as tolerated. Subjectively she is showing some improvement. Continue remdesivir, Decadron for severe COVID-19. Expectorant, antitussive as needed. Flutter valve. D-dimer noted additional mild elevation. Follow D-dimer level. At risk of potentially life-threatening VTE due to COVID. Continue Lovenox VTE prophylaxis. Cardiac monitoring. Otherwise afebrile, without leukocytosis. Not suspecting so far additional superimposed bacterial pneumonia. Continue to monitor. At risk of superinf ection. At risk of cardiac complications, with underlying CAD, other complications including VTE. Troponin trend noted, mild elevation with flat trend. EKG atrial fibrillation, without obvious ischemic changes on my review. Discussed with nursing and case management. (2) Acute kidney injury: Additional mild improvement. BUN 49, creatinine down to 1.8. Anion gap 20.3. Bicarb 24. Sodium 143. Potassium 3.3. Replace. Follow-up chemistry Continue to hold diuretic. Reassess renal function. We will hold off additional hydration for now given severe COVID-19. (3) Elevated d-dimer: Up to 2.98. Follow-up D-dimer. Likely secondary to COVID-19. Does not have symptoms of PE at this time, however, will trend D-dimer. Lovenox 40 mg daily. Lower extremity duplex to assess for DVT. (4) Hyperbilirubinemia: Resolved. AST 53. Secondary to COVID-19. ALT, T. bili normal. Alk phos mild elevation 132. Follow-up liver parameters. Suspect similarly secondary to overdiuresis with resultant cholestasis. No abdominal pain. No RLQ tenderness. Noted RUQ abdominal ultrasound without acute findings. (5) Lactic acidosis: Suspect secondary to worsening respiratory status, hypoxia, COVID-19. Repeat noted improved. (6) ASHD (arteriosclerotic heart disease): History of multiple prior stents, continue aspirin, Brilinta, statin, beta- marvin. Was being referred for outpatient assessment by stress test. (7) Smoking addiction: Encourage cessation. Nicotine patch, lozenges as needed. (8) COPD (chronic obstructive pulmonary disease): Possible component of COPD exacerbation, with productive cough, dyspnea, hypox ia. Decadron as above. Collect sputum culture. Gave a sample. Follow-up. MRSA PCR noted negative. Continue oxygen support, wean down as tolerating. DuoNebs. Plan CKD GERD HTN A-fib not on anticoagulation PAD Anemia Remote history of anal cancer Other comorbidities Discussed with nursing, discussed with case management. Attestations Medical Necessity Statement*: Continue admission for assessment management of severe COVID-19 in a gentleman with COPD with component of exacerbation, underlying CAD and additional comorbidities as above. Diagnoses COVID-19 U07.1 Acute kidney injury N17.9 Elevated d-dimer R79.89 Hyperbilirubinemia E80.6 Lactic acidosis E87.20 ASHD (arteriosclerotic heart disease) I25.10 Smoking addiction F17.200 COPD (chronic obstructive pulmonary disease) J44.9
[2023-04-16] MEDS: potassium chloride ER 20 mEq Tablet PO (14:26)
[2023-04-16] MEDS: remdesivir 100 MG in sodium chloride 0.9% (100 ml) 80 ML IV (17:44)
[2023-04-16] MEDS: enoxaparin 40 mg/0.4 mL Syringe SUBCUT (20:36)
--- NOTE | 2023-04-16 21:59 | PC.NURSE ---
Upon entering room, pt was discovered to not have his oxygen on. Pt was educated to keep his oxygen mask on, pt verbalized understanding.
[2023-04-17] VITALS (9 sets, daily range): BP systolic 104–115; BP diastolic 62–84; PULSE 56–82; RESP 16–20; TEMP 36.4–36.6; O2SAT 87–97
[2023-04-17 05:18] LABS: Basophils % 0.2 %; Hematocrit 45.4 % (42.0-52.0); Hemoglobin 15.5 g/dL (11.7-16.6); Lymphocytes # 4.2 10^3/uL (0.8-4.8); Lymphocytes % 19.5 %; Mean Corpuscular HGB Conc 34.1 g/dL (30.0-36.0); Mean Corpuscular Hemoglobin 33.5 pg (28.0-34.0); Mean Corpuscular Volume 98.1 fl (80-94); Mean Platelet Volume 11.5 fL (7.4-10.4); Monocytes # 1.1 10^3/uL (0.2-0.9); Monocytes % 5.3 %; Neutrophils % 72.9 %; Nucleated Red Blood Cells % 0.1 %; Platelet Count 249 10^3/cmm (130-400); Red Blood Count 4.63 10^6/uL (4.1-5.3); Red Cell Distribution Width 14.9 % (12.1-15.1); White Blood Count 21.5 10^3/uL (4.0-10.0)
[2023-04-17] MEDS: acetaminophen 325 mg Tablet 650 MG PO (05:22)
[2023-04-17 05:31] LABS: D Dimer 2.62 ug/mIFEU (0-0.59)
[2023-04-17 05:34] LABS: Alanine Aminotransferase 34 U/L (0-41); Albumin Level 3.6 g/dL (3.5-5.2); Alkaline Phosphatase 120 U/L (40-130); Anion Gap 16.4 (5-19); Aspartate Amino Transferase 37 U/L (0-40); Blood Urea Nitrogen 49 mg/dL (8-23); Calcium 9.5 mg/dL (8.5-10.5); Carbon Dioxide 27 mmol/L (22-29); Chloride 105 mmol/L (98-107); Globulin 2.3 g/dL (1.3-4.6); Glucose 177 mg/dL (65-115); Osmolality Calculated 315 mOsm/kg (285-295); Potassium 4.4 mmol/L (3.5-5.1); Sodium 144 mmol/L (136-145); Total Bilirubin 0.8 mg/dL (0.15-1.2); Total Protein 5.9 g/dL (6.6-8.7)
[2023-04-17 05:35] LABS: Magnesium 1.9 mg/dL (1.7-2.3)
[2023-04-17] MEDS: ipratropium-albuterol 3 mL Neb INHALATION ×2 (07:46→14:15)
--- NOTE | 2023-04-17 09:14 | PC.SOCIAL ---
IMM update IMM updated with patient. Verbalized an understanding. Copy Pg 2 provided. Initialled, dated, timed, and placed in chart.
[2023-04-17] MEDS: allopurinol 300 mg Tablet PO (10:07)
[2023-04-17] MEDS: aspirin 81 mg Chew Tablet PO (10:08)
[2023-04-17] MEDS: atorvastatin 40 mg Tablet 20 MG PO (10:08)
[2023-04-17] MEDS: pantoprazole DR 40 mg Tablet 20 MG PO (10:08)
[2023-04-17] MEDS: ranolazine (12HR) 500 mg Tablet PO (10:09)
[2023-04-17] MEDS: guaiFENesin 600 mg Tablet 1200 MG PO (10:09)
[2023-04-17] MEDS: ticagrelor 90 mg Tablet PO (10:09)
[2023-04-17] MEDS: metoprolol succinate ER (24 HR) 50 mg Tablet PO (10:10)
[2023-04-17] MEDS: dexamethasone 10 mg/mL INJ 6 MG IVP (10:10)
--- NOTE | 2023-04-17 13:36 | PM.DCS ---
Discharge Providers Date of Admission: 04/14/23 18:33 Date of Discharge: April 17, 2023 Attending Provider at Admission: Micha Mcmahan Attending Provider at Discharge: Micha Mcmahan Primary Care Provider: Antonio Ponce DO Diagnoses at Discharge Discharge Diagnosis (1) COVID-19: Status: Acute (2) Acute kidney injury: Status: Acute (3) Elevated d-dimer: Status: Acute (4) Hyperbilirubinemia: Status: Acute (5) Lactic acidosis: Status: Acute (6) ASHD (arteriosclerotic heart disease): Status: Acute (7) Smoking addiction: Status: Acute (8) COPD (chronic obstructive pulmonary disease): Status: Acute Reason for Visit Reason for Visit: weakness/SOB/poss covid Hospital Course Hospital Course Pleasant 83-year-old gentleman with history of CAD, PAD, smoking addiction, COPD, CKD, A-fib, anemia, other comorbidities including CKD, HTN, GERD, presented with weakness, shortness of breath, diagnosed with COVID-19, with noted severe COVID-19, possibly component of mild COPD exacerbation, with new oxygen requirement of 4 L by nasal cannula, not normally on oxygen, with tachypnea, malaise, diarrhea, was started on treatment with Decadron, remdesivir, breathing treatments, expectorants, antitussives, continue oxygen support, CLAIRE on presentation creatinine up to 2.1, thought to be prerenal also with mild hyperbilirubinemia likely secondary to mild cholestasis with dehydration, resolved. Diuretic was held, IV fluids avoided due to severe COVID-19. Noted abnormal D-dimer 2.27, stated roughly steady. High as 2.98 yesterday, today 2.62. Had elevated risk of VTE, treated prophylactically with Lovenox while in the hospital. At discharge due to persistent risk given additional course of, elevation of D-dimer, age, continues on Xarelto for additional 31 days. His condition gradually improved. Oxygenation with improvement. Today on room air is saturating 93%. He is feeling better and requested discharge home. Home oxygen evaluation is requested prior to discharge. He is given instructions regarding droplet isolation and discontinuation. Asked to follow-up with primary provider. Due to some fluctuation, softer blood pressures while in the hospital, amlodipine and HCTZ is held for now. Lasix for now changed to as needed. Please follow-up for resolution of COVID-19, improvement of CLAIRE. Reassess blood pressures, volume status. Adjust diuretics depending on findings. Physical Exam Const: COMMON NORMALS: patient oriented x3 and alert GENERAL APPEARANCE: cooperative ORIENTATION/CONSCIOUSNESS: Yes awake OTHER: He appears more energetic, in better spirits. Conversant. Discussed consideration of staying the course in the hospital, but he still asks to discharge home. HENMT: COMMON NORMALS: oropharynx normal Neck/C-Spine: COMMON NORMALS: no JVD Resp: COMMON NORMALS: normal respiratory effort and clear to auscultation bilaterally AUSCULTATION: clear to auscultation bilaterally Cardio: COMMON NORMALS: no JVD, regular rhythm, S1 normal heart sound present, S2 normal heart sound present and No murmurs present (Cardio) RHYTHM: regular rhythm HEART SOUNDS: S1 normal heart sound present and S2 normal heart sound present GI: COMMON NORMALS: Normal to inspection, nondistended, normoactive bowel sounds present, Soft to palpation and non-tender PALPATION: Yes Soft to palpation Extremity: COMMON NORMALS: no joint enlargement and no pedal edema Neuro: COMMON NORMALS: patient oriented x3 and moves all extremities SENSORIUM/ORIENTATION: Yes alert Skin: COMMON NORMALS: no rashes or lesions noted GENERAL SKIN EXAM: no rashes or lesions noted Discharge Data Studies Completed and Pending Completed Studies During Hospitalization Category Date Time Status XR chest 1V portable [id number] Stat Exams 04/14/23 12:58 [place] [id number] Routine Ultrasound 04/14/23 20:01 Completed US abdomen limited [id number] Stat Ultrasound 04/14/23 15:16 Completed Pending at discharge Category Date Time Status Sputum Culture and Gram Stain Routine Lab 04/16/23 15:05 Received Radiology Impressions Chest X-Ray 04/14/23 12:58 IMPRESSION: Unchanged chest x-ray. Abdomen Ultrasound 04/14/23 15:16 IMPRESSION: No acute findings. Laboratory Results WBC 21.5 10^3/uL (4.0-10.0) H 04/17/23 04:46 RBC 4.63 10^6/uL (4.1-5.3) 04/17/23 04:46 Hgb 15.5 g/dL (11.7-16.6) 04/17/23 04:46 Hct 45.4 % (42.0-52.0) 04/17/23 04:46 MCV 98.1 fl (80-94) H 04/17/23 04:46 MCH 33.5 pg (28.0-34.0) 04/17/23 04:46 MCHC 34.1 g/dL (30.0-36.0) 04/17/23 04:46 RDW 14.9 % (12.1-15.1) 04/17/23 04:46 Plt Count 249 10^3/cmm (130-400) 04/17/23 04:46 MPV 11.5 fL (7.4-10.4) H 04/17/23 04:46 Neut % (Auto) 72.9 % 04/17/23 04:46 Lymph % (Auto) 19.5 % 04/17/23 04:46 Yancey % (Auto) 5.3 % 04/17/23 04:46 Eos % (Auto) 0.0 % 04/17/23 04:46 Baso % (Auto) 0.2 % 04/17/23 04:46 Neut # (Auto) 15.70 10^3/uL (1.8-7.7) H 04/17/23 04:46 Lymph # (Auto) 4.2 10^3/uL (0.8-4.8) 04/17/23 04:46 Yancey # (Auto) 1.1 10^3/uL (0.2-0.9) H 04/17/23 04:46 Eos # (Auto) 0.0 10^3/uL (0.0-0.8) 04/17/23 04:46 Baso # (Auto) 0.0 10^3/uL (0.0-0.1) 04/17/23 04:46 Nucleated RBC % (auto) 0.1 % 04/17/23 04:46 Nucleated RBCs # 0.0 /100WBC 04/17/23 04:46 D-Dimer 2.62 ug/mIFEU (0-0.59) H 04/17/23 04:46 Sodium 144 mmol/L (136-145) 04/17/23 04:46 Potassium 4.4 mmol/L (3.5-5.1) 04/17/23 04:46 Chloride 105 mmol/L (98-107) 04/17/23 04:46 Carbon Dioxide 27 mmol/L (22-29) 04/17/23 04:46 Anion Gap 16.4 (5-19) 04/17/23 04:46 BUN 49 mg/dL (8-23) H 04/17/23 04:46 Creatinine 1.8 mg/dL (0.7-1.2) H 04/17/23 04:46 GFR Calculation Not Reportable 04/17/23 04:46 Glucose 177 mg/dL (65-115) H 04/17/23 04:46 Calculated Osmolality 315 mOsm/kg (285-295) H 04/17/23 04:46 Lactic Acid 2.7 mmol/L (0.5-2.2) H 04/14/23 12:42 Lactic Acid (Sepsis) 2.0 mmol/L (0.5-2.2) 04/14/23 15:55 Calcium 9.5 mg/dL (8.5-10.5) 04/17/23 04:46 Magnesium 1.9 mg/dL (1.7-2.3) 04/17/23 04:46 Total Bilirubin 0.8 mg/dL (0.15-1.2) 04/17/23 04:46 AST 37 U/L (0-40) 04/17/23 04:46 ALT 34 U/L (0-41) 04/17/23 04:46 Alkaline Phosphatase 120 U/L (40-130) 04/17/23 04:46 Lactate Dehydrogenase 539 U/L (135-225) H 04/14/23 12:42 Troponin T Baseline 49 ng/L (0-15) H 04/14/23 12:42 Troponin T 120 Minute 39.59 ng/L (0-15) H 04/14/23 14:59 Delta Troponin T -9.41 ABS# (0-10) L 04/14/23 14:59 Troponin T Hi Sens 6Hr 38.12 ng/L (0-15) H 04/14/23 18:26 Troponin T Hi Sens 6Hr Delta -10.88 ng/L (0-12) L 04/14/23 18:26 C-Reactive Protein 179.2 mg/L (0.0-4.9) H 04/14/23 12:42 NT-Pro-B Natriuret Pep 1344 pg/mL (0-450) H 04/14/23 12:42 Total Protein 5.9 g/dL (6.6-8.7) L 04/17/23 04:46 Albumin 3.6 g/dL (3.5-5.2) 04/17/23 04:46 Globulin 2.3 g/dL (1.3-4.6) 04/17/23 04:46 Procalcitonin 0.28 ng/mL (0-0.5) 04/14/23 12:42 Urine Color Yellow (Yellow) 04/14/23 17:08 Urine Appearance Clear (CLEAR) 04/14/23 17:08 Urine pH 5 (5-7) 04/14/23 17:08 Ur Specific [place] 1.015 (1.005-1.030) 04/14/23 17:08 Urine Protein Trace (Negative) 04/14/23 17:08 Urine Glucose (UA) Norm (Normal) 04/14/23 17:08 Urine Ketones Negative (Negative) 04/14/23 17:08 Urine Blood 2+ (Negative) H 04/14/23 17:08 Urine Nitrate Negative (Negative) 04/14/23 17:08 Urine Bilirubin Neg (Negative) 04/14/23 17:08 Urine Urobilinogen Norm mg/dL (Negative) 04/14/23 17:08 Ur Leukocyte Esterase Negative (Negative) 04/14/23 17:08 Urine RBC 5-10 /hpf (0-2) H 04/14/23 17:08 Urine WBC 0-4 /hpf (0-5) H 04/14/23 17:08 Ur Squamous Epith Cells 0-4 /hpf (0-5) H 04/14/23 17:08 Amorphous Sediment Not Reportable 04/14/23 17:08 Urine Bacteria None /hpf (NONE) 04/14/23 17:08 Fine Granular Casts 0-4 /lpf H 04/14/23 17:08 Urine Mucus 1+ /hpf 04/14/23 17:08 Vitals Last Vital Signs Temp 97.5 F L 04/17/23 08:00 Pulse 80 04/17/23 08:00 Resp 16 04/17/23 08:00 BP 115/84 08/04/23 08:00 Pulse Ox 97 04/17/23 08:00 O2 Del Method Oxymask 04/17/23 07:57 O2 Flow Rate 5 04/17/23 07:57 Discharge Plan Discharge Patient Disposition: Home Condition: Stable Prescriptions: New nicotine (polacrilex) 4 mg Lozenge 4 mg mucous membrane Q2H PRN (Reason: Nicotine Cravings) Qty: 60 3RF Xarelto 10 mg tablet 10 mg PO DAILY 31 Days Qty: 31 0RF nicotine 14 mg/24 hr Patch 24 Hour 1 patch transdermal DAILY Qty: 30 0RF guaifenesin [Mucinex] 600 mg Tablet Extended Release 12hr 1,200 mg PO BID Qty: 30 0RF benzonatate 100 mg Capsule 200 mg PO TID PRN (Reason: Cough) Qty: 30 0RF Continued pantoprazole 20 mg tablet,delayed release (DR/EC) 20 mg PO BID allopurinol 300 mg tablet 300 mg PO DAILY albuterol sulfate 90 mcg/actuation HFA aerosol inhaler 2 puff INHALATION Q6H PRN (Reason: Wheezing) ranolazine 500 mg tablet extended release 12 hr 500 mg PO BID omega 9-jhi-flq-fish oil 300-1,000 mg capsule 1 cap PO DAILY metoprolol succinate 25 mg tablet extended release 24 hr 50 mg PO DAILY pravastatin 80 mg tablet 40 mg PO DAILY potassium citrate 99 mg capsule 99 mg PO DAILY nitroglycerin [Nitrostat] 0.4 mg tablet, sublingual 0.4 mg sublingual Q5M PRN (Reason: chest pain) Qty: 30 3RF ticagrelor 90 mg tablet 90 mg PO BID Qty: 180 3RF isosorbide mononitrate 120 mg tablet extended release 24 hr 120 mg PO DAILY Qty: 90 3RF Rx Instructions: Dose increased (DME) Orthopedic shoes with custom soles supports See Rx Instructions .Route .MEDSUPPLY Qty: 1 0RF Rx Instructions: As directed [facility] aspirin 81 mg Tablet,Chewable 81 mg PO DAILY Changed furosemide 40 mg tablet 40 mg PO DAILY PRN (Reason: Edema) Qty: 1 0RF Discontinued hydrochlorothiazide 25 mg tablet 25 mg PO QAM amlodipine 10 mg tablet 5 mg PO DAILY Discharge Orders: Discharge Order (Routine); Ordered 04/17/23 Ordered By: Micha Mcmahan Referrals: Antonio Ponce DO [Primary Care Provider] - 04/27/23 3:30 pm Discharge Diet: Cardiac Discharge Activity: Increase activity as tolerated Patient Instructions: Droplet Precautions (GEN), Complications of Infection (GEN), COVID-19 (Coronavirus Disease 2019) (GEN), Opioid Safety Activity Restrictions/Additional Instructions: If your symptoms continue to improve over the next 5 days, cough resolving, no further fever, no other symptoms, you may discontinue droplet precautions. Follow-up with your primary doctor for reassessment for resolution of severe COVID-19 illness. As discussed due to elevated risk of blood clot associated COVID-19, with elevated D-dimer, other risk factors you are for now continued on some blood thinner medication with Xarelto over the next 31 days, at which point please revisit with your primary doctor with consideration of discontinuation. Seek medical attention immediately in case of any worsened or new new concerning symptoms. COVID-19 puts you at risk of additional complications with blood clots, heart attack, stroke, superimposed bacterial pneumonia, other complications that may happen for her. After recovering from the illness. In case of any concerning symptoms seek medical attention immediately. Please stop smoking, particularly especially do not smoke while recovering from COVID due to already increased risk of blood clots, heart attack and stroke. Long-term continue smoking will increase your risk of heart attack, stroke, lung disease, various cancers. Discharge Attestations Time Spent in Discharge Care*: greater than 30 min Quality Metrics Clinical Quality Measures [ No reported AMI, CVA or VTE this stay] Coding Level of Care Code 26021 Total time (in minutes) for Discharge: 45 Diagnoses COVID-19 U07.1 Acute kidney injury N17.9 Elevated d-dimer R79.89 Hyperbilirubinemia E80.6 Lactic acidosis E87.20 ASHD (arteriosclerotic heart disease) I25.10 Smoking addiction F17.200 COPD (chronic obstructive pulmonary disease) J44.9
--- NOTE | 2023-04-17 16:21 | PC.NURSE ---
Discussed discharge medications, changed and discontinued medications as well as follow up appointments and continued isolation at home. Patient verbalized understanding.
== END 2023-04-17 16:30 | disposition home or self-care (01) | DRG 178 ==
LOC: ER 16:14 → MEDSURG 18:34
PROVIDERS: Admitting Provider Internal Medicine; Emergency Provider Emergency Medicine; PCP Emergency Medicine Emergency Medical Services; Visit Provider Internal Medicine
DX: U07.1 COVID-19 (principal); B37.81 Candidal esophagitis; N17.9 Acute kidney failure, unspecified; E87.20 Acidosis, unspecified; J44.1 Chronic obstructive pulmonary disease with (acute) exacerbation; I25.10 Atherosclerotic heart disease of native coronary artery without angina pectoris; Z95.5 Presence of coronary angioplasty implant and graft; F17.200 Nicotine dependence, unspecified, uncomplicated; I73.9 Peripheral vascular disease, unspecified; I12.9 Hypertensive chronic kidney disease with stage 1 through stage 4 chronic kidney disease, or unspecified chronic kidney disease; N18.9 Chronic kidney disease, unspecified; I48.91 Unspecified atrial fibrillation; D63.1 Anemia in chronic kidney disease; K21.9 Gastro-esophageal reflux disease without esophagitis; E86.0 Dehydration; Z79.51 Long term (current) use of inhaled steroids; Z79.82 Long term (current) use of aspirin; R19.7 Diarrhea, unspecified; Z98.1 Arthrodesis status; E78.5 Hyperlipidemia, unspecified; Z85.048 Personal history of other malignant neoplasm of rectum, rectosigmoid junction, and anus; Z79.02 Long term (current) use of antithrombotics/antiplatelets; E80.6 Other disorders of bilirubin metabolism
CPT/HCPCS: 36415; 71045; 76705; 80053; 81001; 83605; 83615; 83735; 83880; 84145; 84484; 85025; 85378; 86140; 87070; 87106; 87205; 87641; 93005; 93970; 94640; 94664; 94760; 96372; 96374; 96375; 99285; J0248; J1100; J1650; J2405; J7040

== ENCOUNTER → 2023-05-05 07:46 | Outpatient (BNVA) | payer OTHER, SELFPAY | PROVIDERS: PCP Emergency Medicine Emergency Medical Services; Visit Provider Podiatrist Foot & Ankle Surgery | DX: I73.9 Peripheral vascular disease, unspecified (principal); L84 Corns and callosities; L60.3 Nail dystrophy; M20.42 Other hammer toe(s) (acquired), left foot; M20.41 Other hammer toe(s) (acquired), right foot; M21.42 Flat foot [pes planus] (acquired), left foot; M21.41 Flat foot [pes planus] (acquired), right foot; M21.611 Bunion of right foot; M21.612 Bunion of left foot | CPT/HCPCS: 11721 ==

== ENCOUNTER 2023-06-03 09:51 | Outpatient (CLI) | payer OTHER, SELFPAY ==
--- NOTE | 2023-06-03 10:10 | ECG_ITS ---
[facility] Test Date: 2023-06-03 Pat Name: Wolf Godinez Department: Room: Gender: Male [employer]: : [id number] Requested By: Jose Manuel Whitman Order Number: [id number] Meliza MD: Jose Manuel Whitman M.D. Interpretive Statements NAME OF STUDY: LEXISCAN SESTAMIBI STRESS TEST INDICATION: Chest Pain, PROCEDURE: At the baseline, the EKG revealed atrial fibrillation with a controlled ventricular response rate of 78 bpm. The baseline heart was 83 bpm with a blood pressue of 142/74 mm of Hg Lexiscan was infused over a period of 20 seconds. A total of 0.4 milligrams of Lexiscan was infused. The stress phase was continued for a total of 5 minutes. Heart rate at the end of the stress phase was 81 bpm with a blood pressure 147/81 mm of Hg. The EKG at the peak infusion revealed no significant changes. Sestamibi was injected 20 seconds after the Lexiscan infusion. Heart rate at the end of the recovery phase was 86 bpm with a blood pressure of 150/81 mm of Hg. CONCLUSION: 1. No significant EKG changes with the LexiScan infusion 2. No LexiScan induced chest pain or cardiac arrhythmia 3. Normal blood pressure and heart rate response 4. Sestamibi/sestamibi perfusion scan pending; see separate report. Electronically Signed On 06-05-2023 19:56:46 CDT by Jose aMnuel Whitman M.D. [email or web address]
--- NOTE | 2023-06-03 10:10 | NMCV_ITS ---
NM dianne perf SPECT r/s* [id number] Wolf Godinez Age: 83 Gender: M : 1940 Exam Date: 06/03/2023 10:10 Ordering Phys: Jose Manuel Whitman MD ([email or web address]) Technologist: ROMULO Cole Exam Location: [facility] Indications: CORONARY ANGIOPLASTY STATUS, CHEST PAIN STRESS TEST Please see separate stress test report [facility] for full findings IMAGE PROTOCOL Rest/Stress 1 Lexiscan Day Radiopharmaceutical Dose (mCi) Administration Site Administered by Rest: Tc-99m 11.0 IV ROMULO Quevedo Sestamibi Stress:Tc-99m 32.6 IV ROMULO Quevedo Sestamibi Rest: 03-Jun-2023 60 Discovery 630 Stress: 03-Jun-2023 30 Discovery 630 0.4mg Lexiscan. Images obtained in supine and prone position. SPECT RESULTS Technical Quality: Excellent Raw Data Analysis: Normal Image Corrections: No attenuation or motion correction applied Summed Stress Score: 0 Summed Rest Score: 0 Summed Difference Score: 0 PERFUSION FINDINGS Fairly uniform myocardial tracer uptake with no significant perfusion abnormalities FUNCTIONAL RESULTS (calculated via Gated SPECT) Stress Image LV EF (%): 58 Stress EDV (mL):83 TID: 1.04 Stress ESV (mL):35 FUNCTIONAL FINDINGS: Segmental wall motion analysis revealing no gross wall motion abnormalities IMPRESSIONS 1. Uniform myocardial tracer uptake with no significant perfusion abnormalities 2. Normal LV ejection fraction of 58%. 3. LV wall motion analysis revealing no gross wall motion abnormalities. 4. Normal LV volume. Low probability for coronary ischemia, based on the above findings Dr Jose Manuel Whitman MD FACC (Electronically Signed) Final Date: 03 June 2023 21:31 S
[2023-06-03] MEDS: regadenoson 0.4 Mg/5 ml Syringe IVP (11:42)
[2023-06-03 12:01] VITALS: BP 146/80; PULSE 87
== END 2023-06-03 09:52 | disposition home or self-care (01) ==
LOC: CDL 09:51
PROVIDERS: PCP Emergency Medicine Emergency Medical Services; Visit Provider Internal Medicine Cardiovascular Disease
DX: R07.9 Chest pain, unspecified (principal); Z98.61 Coronary angioplasty status
CPT/HCPCS: 36415; 78452; 93017; 96374; A9500; J2785

== ENCOUNTER → 2023-07-20 09:53 | Outpatient (BNVA) | payer OTHER, SELFPAY | PROVIDERS: PCP Emergency Medicine Emergency Medical Services; Referring Provider Emergency Medicine Emergency Medical Services; Visit Provider Surgery | DX: K92.2 Gastrointestinal hemorrhage, unspecified | CPT/HCPCS: 99204; 99214 ==

== ENCOUNTER → 2023-08-04 07:45 | Outpatient (BNVA) | payer OTHER, SELFPAY | PROVIDERS: PCP Emergency Medicine Emergency Medical Services; Visit Provider Podiatrist Foot & Ankle Surgery | DX: I73.9 Peripheral vascular disease, unspecified (principal); L84 Corns and callosities; M20.40 Other hammer toe(s) (acquired), unspecified foot; L60.3 Nail dystrophy; M21.40 Flat foot [pes planus] (acquired), unspecified foot; M21.619 Bunion of unspecified foot; E11.42 Type 2 diabetes mellitus with diabetic polyneuropathy | CPT/HCPCS: 11056; 11721 ==

== ENCOUNTER 2023-09-11 08:48 | Day surgery (SDC) | payer OTHER, SELFPAY ==
[2023-09-11 09:11] VITALS: BP 122/62; PULSE 114; RESP 18; TEMP 36.5; O2SAT 98; BMI 29.5
[2023-09-11] MEDS: sodium chloride 0.9% 1,000 ML 30 ML IV (09:15)
--- NOTE | 2023-09-11 09:25 | ANES.PREANE2 ---
Pre-Anesthetic Assessment Height/Weight: Height 1.75 m Weight 90.718 kg Temp Pulse Resp BP Pulse Ox O2 Del Method 97.7 F 114 H 18 122/62 98 Room Air 09/11/23 09:11 09/11/23 09:11 09/11/23 09:11 09/11/23 09:11 09/11/23 09:11 09/11/23 09:11 Operation Date: 09/11/23 10:05 Proposed Procedures p [id number] egd [id number] colon G0121 screen colon A risk Z12.11(Not Applicable) - Ricardo Castrejon MD s Colonoscopy(Not Applicable) - Ricardo Castrejon MD Familial anesthetic complications: None Was Clonidine taken within 24 hours: N/A Last intake: Intake Last Liquid Date 09/10/23 Last Liquid Time 22:00 Last Solid Date 09/09/23 Social No alcohol and No tobacco Exam alert, oriented x 3, clear to auscultation bilaterally and regular rate & rhythm Airway Mallampati: Class IV Dentition: false Pulmonary Chronic Obstructive Pulmonary Disease and Sleep Apnea CV/HEM Coronary Artery Disease (stents > 1 year ago) and Peripheral Vascular Disease Negative stress test and perfusions scan this year Anesthetic Plan ASA status: 4 Anesthesia: MAC Risk of > 500 ml blood loss (7ml/kg in children): No Medications/Allergies Home Medications Medication Instructions Recorded Confirmed Last Taken Type pantoprazole 20 mg tablet,delayed 20 mg PO BID 09/28/19 09/09/23 09/07/23 History release albuterol sulfate 90 mcg/actuation 2 puff inhalation Q6H PRN Wheezing 05/22/20 09/11/23 09/11/23 History aerosol inhaler allopurinol 300 mg tablet 300 mg PO DAILY 05/28/20 09/09/23 09/07/23 History aspirin 81 mg chewable tablet 81 mg PO DAILY 05/30/20 09/09/23 09/07/23 History ticagrelor 90 mg tablet 90 mg PO BID #180 tabs 09/03/20 09/09/23 09/07/23 Rx ranolazine 500 mg tablet,extended 500 mg PO BID 12/20/20 09/09/23 09/07/23 History release,12 hr isosorbide mononitrate 120 mg 120 mg PO DAILY #90 tabs 10/09/09/23 09/07/23 Rx tablet,extended release 24 hr omega 6-oyl-ayh-fish oil 300 1 cap PO DAILY 03/31/22 09/09/23 09/07/23 History mg-1,000 mg capsule metoprolol succinate 25 mg 50 mg PO DAILY 06/05/22 09/09/23 09/07/23 History tablet,extended release 24 hr potassium citrate 99 mg capsule 99 mg PO DAILY 06/05/22 09/09/23 09/07/23 History pravastatin 80 mg tablet 40 mg PO DAILY 06/05/22 09/09/23 09/07/23 History Orthopedic shoes with custom soles #1 ea 11/11/22 09/09/23 09/07/23 Rx supports nitroglycerin 0.4 mg sublingual 0.4 mg sublingual Q5M PRN chest 03/30/23 09/09/23 1 Week Ago Rx tablet (Nitrostat) pain #30 tabs ~09/02/23 benzonatate 100 mg capsule 200 mg (2 x 100 mg) PO TID PRN 04/17/23 09/09/23 09/07/23 Rx Cough #30 caps furosemide 40 mg tablet 40 mg PO DAILY PRN Edema #1 tab 04/17/23 09/09/23 09/07/23 Rx guaifenesin 600 mg tablet, 1,200 mg (2 x 600 mg) PO BID #30 04/17/23 09/09/23 09/07/23 Rx extended release 12 hr (Mucinex) tabs nicotine (polacrilex) 4 mg buccal 4 mg mucous membrane Q2H PRN 04/17/23 09/09/23 09/07/23 Rx lozenge Nicotine Cravings #60 ea nicotine 14 mg/24 hr daily 1 patch transdermal DAILY #30 ea 04/17/23 09/09/23 09/07/23 Rx transdermal patch apixaban 2.5 mg tablet 2.5 mg PO BID #180 tabs 05/21/23 09/09/23 09/07/23 Rx amlodipine 5 mg tablet 5 mg PO DAILY 07/20/23 09/09/23 09/07/23 History hydrochlorothiazide 25 mg tablet 25 mg PO DAILY 07/20/23 09/09/23 09/07/23 History Allergies Allergy/AdvReac Type Severity Reaction Status Date / Time No Known Allergies Allergy Verified 08/04/23 08:01 Current Medications Generic Name Dose Route Start Last Admin Trade Name Johnq PRN Reason Stop Dose Admin Sodium Chloride 1,000 mls @ 30 mls/hr 09/11/23 09:15 09/11/23 09:15 Sodium Chloride 0.9% IV 09/12/23 09:14 30 mls/hr .Q24H ASHLEY Administration PFSH Anesthesia Medical History (Updated 08/04/23 @ 08:20 by Clif Watts DPM) Smoking addiction Diabetic peripheral neuropathy associated with type 2 diabetes mellitus Trigger finger, left ring finger Trigger finger, right ring finger COPD (chronic obstructive pulmonary disease) Peripheral arterial disease Anal cancer Dyslipidemia (high LDL; low HDL) ASHD (arteriosclerotic heart disease) Hypertension Atrial fibrillation Hyperparathyroidism Insomnia Chronic kidney disease Gout Anemia GERD (gastroesophageal reflux disease) Surgical History H/O hernia repair H/O cervical spine surgery S/P arterial stent right leg in 2009, left leg in 2017 History of coronary angioplasty with insertion of stent History of back surgery Spinal fusion H/O excision of epidermal inclusion cyst (05/30/20) left chest wall Status post colonoscopy History of cataract surgery Family History Other Family history unknown Social History Smoking and tobacco/nicotine status: current every day tobacco/nicotine user (0.5 ppd, smoked x 65+ years) cigarettes Packs smoked per day: 1.5 Alcohol intake: current Alcohol intake frequency: 0-2 Drinks per Day Alcohol type: beer and hard liquor Substance/Drug Use: never Household members: spouse Marital status: Current occupational status: retired Data Anesthesia Cardiac Studies: Sestamibi Stress Test (Cardiology) 06/03/23 Cardiac Event Monitor 09/30/21
[2023-09-11] MEDS: metoprolol tartrate 1 mg/1 mL SDV 5 mL 5 MG IVP (09:43)
--- NOTE | 2023-09-11 10:43 | W.PM.OPSFHP ---
Same Day Surgery H&P Indication for Procedure/HPI DATE OF PROCEDURE: September 11, 2023 CHIEF COMPLAINT/INDICATIONFOR SURGICAL PROCEDURE: GI bleeding, history of anal cancer PREOP DIAGNOSIS: gi bleeding PLANNED PROCEDURE: Operation Date: 09/11/23 10:05 Proposed Procedures p [id number] egd [id number] colon G0121 screen colon A risk Z12.11(Not Applicable) - Ricardo Castrejon MD s Colonoscopy(Not Applicable) - Ricardo Castrejon MD Medications/Allergies* Home Medications Medication Instructions Recorded Confirmed Type pantoprazole 20 mg tablet,delayed 20 mg PO BID 09/28/19 09/09/23 History release albuterol sulfate 90 mcg/actuation 2 puff inhalation Q6H PRN Wheezing 05/22/20 09/11/23 History aerosol inhaler allopurinol 300 mg tablet 300 mg PO DAILY 05/28/20 09/09/23 History aspirin 81 mg chewable tablet 81 mg PO DAILY 05/30/20 09/09/23 History ranolazine 500 mg tablet,extended 500 mg PO BID 12/20/20 09/09/23 History release,12 hr omega 7-lmy-zfh-fish oil 300 1 cap PO DAILY 03/31/22 09/09/23 History mg-1,000 mg capsule metoprolol succinate 25 mg 50 mg PO DAILY 06/05/22 09/09/23 History tablet,extended release 24 hr potassium citrate 99 mg capsule 99 mg PO DAILY 06/05/22 09/09/23 History pravastatin 80 mg tablet 40 mg PO DAILY 06/05/22 09/09/23 History amlodipine 5 mg tablet 5 mg PO DAILY 07/20/23 09/09/23 History hydrochlorothiazide 25 mg tablet 25 mg PO DAILY 07/20/23 09/09/23 History Allergies/Adverse Reactions Allergy/AdvReac Type Severity Reaction Status Date / Time No Known Allergies Allergy Verified 08/04/23 08:01 Current Medications: Generic Name Dose Route Start Last Admin Trade Name Freq PRN Reason Stop Dose Admin Sodium Chloride 1,000 mls @ 30 mls/hr 09/11/23 09:15 09/11/23 09:15 Sodium Chloride 0.9% IV 09/12/23 09:14 30 mls/hr .Q24H ASHLEY Administration Pertinent History/Comorbid Conditions* Medical History (Updated 08/04/23 @ 08:20 by Clif Watts DPM) Smoking addiction Diabetic peripheral neuropathy associated with type 2 diabetes mellitus Trigger finger, left ring finger Trigger finger, right ring finger COPD (chronic obstructive pulmonary disease) Peripheral arterial disease Anal cancer Dyslipidemia (high LDL; low HDL) ASHD (arteriosclerotic heart disease) Hypertension Atrial fibrillation Hyperparathyroidism Insomnia Chronic kidney disease Gout Anemia GERD (gastroesophageal reflux disease) Surgical History (Updated 06/08/22 @ 09:46 by Jameson Monahan MD) H/O hernia repair H/O cervical spine surgery S/P arterial stent right leg in 2009, left leg in 2017 History of coronary angioplasty with insertion of stent History of back surgery Spinal fusion H/O excision of epidermal inclusion cyst (05/30/20) left chest wall Status post colonoscopy History of cataract surgery Family History (Updated 11/24/19 @ 11:25 by Kayleigh Ko RN) Family history unknown Social History Smoking and tobacco/nicotine status: current every day tobacco/nicotine user (0.5 ppd, smoked x 65+ years) cigarettes Packs smoked per day: 1.5 Alcohol intake: current Alcohol intake frequency: 0-2 Drinks per Day Alcohol type: beer and hard liquor Substance/Drug Use: never Household members: spouse Marital status: Current occupational status: retired Pertinent Exam Findings alert, oriented x 3, clear to auscultation bilaterally, regular rate & rhythm and operative site marked Recommendations Surgery/Procedure today Coding Level of Care Code Acute Code for Chg Fwd
[2023-09-11 12:10] VITALS: BP 123/71; PULSE 67; RESP 18; TEMP 36.5; O2SAT 94
[2023-09-11 12:22] VITALS: BP 130/70; PULSE 73; RESP 18; TEMP 36.3; O2SAT 99
--- NOTE | 2023-09-11 12:50 | ANE.PACU2 ---
Inpatient post-anesthesia follow up: Airway intact: Yes Vital signs: Temperature 97.4 F Pulse Rate 73 Respiratory Rate 18 Blood Pressure 130/70 Pulse Oximetry 99 Oxygen Delivery Me thod Room Air Oxygen Flow Rate Fraction of Inspir ed Oxygen Hydration adequate: Yes Nausea and vomiting: No Pain level: 2 Mental status: Baseline
== END 2023-09-11 12:52 | disposition home or self-care (01) ==
PROVIDERS: PCP Emergency Medicine Emergency Medical Services; Visit Provider Surgery
PROC: 0DJ08ZZ Inspection of Upper Intestinal Tract, Via Natural or Artificial Opening Endoscopic (ICD-10-PCS; CPT 43235; principal; 2023-09-11 10:05)
PROC: 0DJD8ZZ Inspection of Lower Intestinal Tract, Via Natural or Artificial Opening Endoscopic (ICD-10-PCS; CPT 45378; 2023-09-11 10:05)
DX: Z12.11 Encounter for screening for malignant neoplasm of colon (principal); D12.8 Benign neoplasm of rectum; K92.2 Gastrointestinal hemorrhage, unspecified; Z85.048 Personal history of other malignant neoplasm of rectum, rectosigmoid junction, and anus; E11.42 Type 2 diabetes mellitus with diabetic polyneuropathy; J44.9 Chronic obstructive pulmonary disease, unspecified; E78.5 Hyperlipidemia, unspecified; I48.91 Unspecified atrial fibrillation; E11.22 Type 2 diabetes mellitus with diabetic chronic kidney disease; I12.9 Hypertensive chronic kidney disease with stage 1 through stage 4 chronic kidney disease, or unspecified chronic kidney disease; N18.9 Chronic kidney disease, unspecified; F17.210 Nicotine dependence, cigarettes, uncomplicated; G47.30 Sleep apnea, unspecified; Z98.1 Arthrodesis status
CPT/HCPCS: 45380; 88305; 88312; 96374; J2704; J3490; J7030

== ENCOUNTER → 2023-10-07 09:03 | Outpatient (BNVA) | payer OTHER, SELFPAY | PROVIDERS: PCP Emergency Medicine Emergency Medical Services; Visit Provider Internal Medicine Cardiovascular Disease | DX: I25.119 Atherosclerotic heart disease of native coronary artery with unspecified angina pectoris (principal); I48.11 Longstanding persistent atrial fibrillation; I73.9 Peripheral vascular disease, unspecified; E78.5 Hyperlipidemia, unspecified; F17.210 Nicotine dependence, cigarettes, uncomplicated; I12.9 Hypertensive chronic kidney disease with stage 1 through stage 4 chronic kidney disease, or unspecified chronic kidney disease; E11.22 Type 2 diabetes mellitus with diabetic chronic kidney disease; N18.30 Chronic kidney disease, stage 3 unspecified; Z79.84 Long term (current) use of oral hypoglycemic drugs; Z79.01 Long term (current) use of anticoagulants | CPT/HCPCS: 99214 ==

== ENCOUNTER → 2023-11-04 13:21 | Outpatient (BNVA) | payer OTHER, SELFPAY | PROVIDERS: PCP Emergency Medicine Emergency Medical Services; Visit Provider Podiatrist Foot & Ankle Surgery | DX: E11.8 Type 2 diabetes mellitus with unspecified complications (principal); I73.9 Peripheral vascular disease, unspecified; L84 Corns and callosities; L60.3 Nail dystrophy; E11.42 Type 2 diabetes mellitus with diabetic polyneuropathy | CPT/HCPCS: 11056; 11721 ==

== ENCOUNTER 2023-12-25 07:39 | Outpatient (CLI) | payer OTHER, SELFPAY ==
--- NOTE | 2023-12-25 07:44 | NM_ITS ---
WS: [id number] EXAMINATION: NM parathyroid [id number] ORDER DATE: 12/25/2023 7:44 AM COMPARISON: 08/13/21 HISTORY: PRIMARY HYPERPARATHYROIDISM TECHNIQUE: Parathyroid scintigraphy with 20.3 mCi of technetium 99 M sestamibi administered. AP and o blique views obtained with and without chin and suprasternal notch markers. Initial and 2 hour delayed imagi ng acquired. FINDINGS: Normal homogeneous thyroid uptake and salivary gland uptake on the initial 2 hour imaging. Delayed im aging demonstrates normal thyroid washout. No foci of radiotracer retention to indicate parathyroid a denoma. No other suspicious findings. IMPRESSION: No evidence of parathyroid adenoma.
== END 2023-12-25 07:40 | disposition home or self-care (01) ==
PROVIDERS: PCP Emergency Medicine Emergency Medical Services; Visit Provider Emergency Medicine Emergency Medical Services
DX: E21.3 Hyperparathyroidism, unspecified (principal); I10 Essential (primary) hypertension; E78.5 Hyperlipidemia, unspecified; E11.9 Type 2 diabetes mellitus without complications; N19 Unspecified kidney failure
CPT/HCPCS: 78070; A9500

== ENCOUNTER → 2024-02-03 12:37 | Outpatient (BNVA) | payer OTHER, SELFPAY | PROVIDERS: PCP Emergency Medicine Emergency Medical Services; Visit Provider Podiatrist Foot & Ankle Surgery | DX: I73.9 Peripheral vascular disease, unspecified (principal); L84 Corns and callosities; L60.3 Nail dystrophy; E11.42 Type 2 diabetes mellitus with diabetic polyneuropathy | CPT/HCPCS: 11056; 11721 ==

== ENCOUNTER → 2024-04-04 12:08 | Outpatient (BNVA) | payer OTHER, SELFPAY | PROVIDERS: PCP Nurse Practitioner Family; Visit Provider Internal Medicine Cardiovascular Disease | DX: R07.9 Chest pain, unspecified (principal) | CPT/HCPCS: 93005 ==

== ENCOUNTER 2024-04-29 11:58 | Outpatient (CLI) | payer OTHER, SELFPAY ==
--- NOTE | 2024-04-29 12:45 | USR_ITS ---
PROCEDURE INFORMATION: Exam: US Duplex Bilateral Lower Extremity Arteries Exam date and time: 04/29/2024 12:02 PM Age: 84 years old Clinical indication: Pain; Leg, lower; Bilateral; Additional info: Leg pain TECHNIQUE: Imaging protocol: Real-time ultrasound scan of the arteries of the bilateral lower extremities with 2-D cruz scale, color Doppler flow and spectral waveform analysis. Images documented and saved. COMPARISON: [place] [id number] 09/09/2022 12:38 PM FINDINGS: Right common femoral artery: No occlusion or significant stenosis. Monophasic waveform. Right superficial femoral artery: Asymmetrically increased peak systolic velocity measuring in the distal right superficial femoral artery measuring 216 cm/s. Monophasic waveform. Right popliteal artery: No occlusion or significant stenosis. Monophasic waveform. Right calf/foot arteries: No occlusion or significant stenosis in the visualized arteries. Monophasic waveforms. Dorsalis pedis artery is patent. The right ankle-brachial index measures 0.85 consistent with some arterial disease. Left common femoral artery: No occlusion or significant stenosis. Normal waveform. Left superficial femoral artery: No occlusion or significant stenosis. Normal waveform. Left popliteal artery: No occlusion or significant stenosis. Normal waveform. Left calf/foot arteries: The left ankle-brachial index measures 0.88 consistent with some arterial disease. US/CV arterial duplex [facility] [id number] IMPRESSION: 1. There is asymmetric elevated peak systolic velocity in the distal right superficial femoral artery with monophasic flow seen throughout the right lower extremity. 2. There is multiphasic flow throughout the left lower extremity.
== END 2024-04-29 11:59 | disposition home or self-care (01) ==
LOC: RAD 11:58
PROVIDERS: PCP Nurse Practitioner Family; Visit Provider Internal Medicine Cardiovascular Disease
DX: I73.9 Peripheral vascular disease, unspecified (principal)
CPT/HCPCS: 36415; 80048; 83880; 93925; 99215

== ENCOUNTER → 2024-05-04 13:08 | Outpatient (BNVA) | payer OTHER, SELFPAY | PROVIDERS: PCP Nurse Practitioner Family; Visit Provider Podiatrist Foot & Ankle Surgery | DX: I73.9 Peripheral vascular disease, unspecified (principal); L84 Corns and callosities; L60.3 Nail dystrophy; E11.42 Type 2 diabetes mellitus with diabetic polyneuropathy | CPT/HCPCS: 11056; 11721 ==

== ENCOUNTER 2024-05-10 08:09 | Outpatient (CLI) | payer OTHER, SELFPAY ==
--- NOTE | 2024-05-09 13:01 | PC.NURSE ---
Attempted to call patient x4 with no answer. 1 voicemail message left for patient to contact cardiovascular lab director for pre op instructions. Patient must be without eliquis for 24 hours prior to procedure. NPO after midnight and med list needed.
[2024-05-10] VITALS (27 sets, daily range): BP systolic 116–181; BP diastolic 42–116; PULSE 58–90; RESP 8–20; TEMP 36.5–36.6; O2SAT 91–100; BMI 29.7; BMI 29.4
--- NOTE | 2024-05-10 07:45 | XACV_ITS ---
Exam Room: 2 Ht: 175 cm Wt: 91 kg BSA: 2.13 m2 Gender: Male : 1940 Any Known Allergies: No known allergies Exam Priority: Routine Procedure(s): Procedure Description: Diagnostic procedure Procedure Description: PCI procedure Procedure Description: Left Heart Catheterization Procedure Description: Right Heart Catheterization Procedure Description: O2 saturation Procedure Description: Drug Eluting Coronary Stent Procedure Description: PTCA Procedure Description: Miscellaneous Procedure Description: ACT Procedure Description: Coronary Angiography J Carlos YATES; Diagnostic Cath Status: Urgent Diagnostic Findings * The left main is a short medium caliber vessel with no significant stenotic lesions. * The left anterior descending artery is a medium caliber vessel which appears to taper of towards the LV apex. The mid LAD was found to have a widely patent stented segment. Right after the stent, there was a 70-80% eccenteric stenosis in the LAD. The first diagonal branch was found to have 20 to 30% diffuse irregular narrowing proximally. No other significant stenotic lesions. * The left circumflex artery is a medium to large caliber codominant vessel which was found to give off a high obtuse marginal branch, relatively small caliber with mild diffuse disease. The mid circumflex artery was found to have around 50 to 60% eccentric narrowing. The distal circumflex artery was found to have minimal intimal irregularities. * The right coronary artery is a medium caliber codominant vessel which was found to have mild diffuse disease proximally. Right after the first RV branch, there was a long stented segment which was found to be patent. At the distal end of the stented segment, there was found to be a PD stent 50 to 60% stenosis. The distal artery also was found to have mild diffuse disease. The PDA branch was found to have 40 to 50% tubular narrowing in the mid segment. No other significant stenotic lesions.. PCI Status: Elective Interventional Findings * Mid Left Anterior Descendin-80% eccenteric stenosis treated with a MDT NC EUPHORA RX [id number] BALLOON, MDT R DANN 2.25X12 ERENDIRA, and MDT NC EUPHORA RX [id number] BALLOON. 0% residual stenosis, MOSHE: 3 flow. * Procedure detail: We engaged left main artery with XB 3.0 guide catheter. IV heparin was administered to maintain anticoagulation. 0.014 run-through guidewire was used to cross the stenosis and was put in distal LAD. We predilated the stenosis with 2.25 x 12 mm NC balloon. This was followed by placement of 2.25 x 12 mm resolute [place] drug-eluting stent. We postdilated the stent with 2.5 x 12 mm NC balloon. At this time final angiogram was performed that showed excellent stent expansion, no residual stenosis and MOSHE-3 flow. Guide catheter and guidewire were removed. Patient left the Transformer Tester in a stable condition.. Conclusions 1. 84-year-old white male with history of hypertension, dyslipidemia, type 2 diabetes and chronic kidney disease, status post PCI of the left hand descending artery and the right coronary artery, now is presenting with complaints of increasing episodes of chest pain. Has increasing shortness of breath with activities. He is known to have COPD/sleep apnea. In order to further evaluate his coronary status as well as the hemodynamics, a right and left heart catheterization with coronary angiogram and possible PCI was recommended. The findings are as follows. 2. Short left main with no significant lesions. #2 high-grade stenosis in the mid LAD, distal to the stented segment. It appears to be around 70%. Moderate mid circumflex lesion of around 50 to 60%. 3. Mild disease in the other vessels. Moderate disease in the right coronary artery at the distal Peristent region.4. Patent stented segment of the right coronary artery with moderate in-stent stenosis in the distal peristented region. LVEDP of 20 mmHg. 3. I discussed and reviewed the cardiac catheterization data with Dr. Valencia. It was thought to be appropriate to intervene the LAD lesion. Dr. Valencia took over further management of this patient at this point.. 4. S/p successful revascularization of mid LAD with 1 stent. 5. Mid Left Anterior Descending was treated with a Balloon, Drug Eluting Stent, and Balloon. Recommendations * Brilinta and eliquis. * High intensity statin therapy. * Outpatient cardiology follow up in 2 weeks. Interventional RX Recommendation: PCI w/o planned CABG Diagnostic RX Recommendation: PCI w/o planned CABG Anticoagulation: Heparin LV EDP: 22 mmHg Left Ventriculography Findings: * LV gram was not performed because of the concern about the dye overload. The LVEDP was 20 mmHg. Pressures Phase:Rest AO : 130 / 59 ( 86 ) @ 10:58:00 AM 108 / 81 ( 82 ) @ 11:00:00 AM 149 / 66 ( 99 ) @ 11:05:00 AM 161 / 65 ( 100 ) @ 11:08:00 AM 160 / 66 ( 107 ) @ 11:08:00 AM 173 / 74 ( 112 ) @ 11:17:00 AM 153 / 72 ( 109 ) @ 11:26:00 AM 118 / 49 ( 76 ) @ 11:28:00 AM LV : 169 / 0 / 22 @ 11:08:00 AM 166 / 1 / 20 @ 11:08:00 AM RV : 54 / 2 / 13 @ 10:44:00 AM PA : 65 / 25 ( 37 ) @ 10:43:00 AM RA : a wave = 16 v wave = 17 mean = 14 @ 10:45:00 AM PCW : a wave = 22 v wave = 34 mean = 22 @ 10:42:00 AM O2 Content Phase:Rest PA : O2 Content O2: 56.8 @ 11:05:00 AM Saturations Phase:Rest AO : 95 @ 11:08:00 AM RA : 54 @ 10:58:00 AM RV : 51 @ 11:00:00 AM PA : 57 @ 11:05:00 AM Cardiac Output Phase:Rest Omayra : 3 @ 10:43:39 AM Omayra Cardiac Index: 2 @ 10:43:39 AM Flow Phase:Rest Qp : 3 @ :43:39 AM Qs : 3 @ 10:43:39 AM Valves Phase:DefaultPhase AV : 0.0 @ 10:43:39 AM AV Mean Gradient: 0.0 @ 10:43:39 AM 0.0 @ 10:43:39 AM AV Flow: 253 @ :43:39 AM Clinical Evaluation EBL: 5mL-10mL Procedural Details Pre-Procedure Time Out. Identified patient by full name and date of as verbalized by the patient/guarantor. Does the consent match the physician's order: Yes. Accurate & Complete Informed Consent: Yes. Inpatient/Outpatient History & Physical on Chart: Yes. If H&P is completed, is and addenduem needed: No; If yes, is the addendum complete: N/A. Visualize and Verify Site with Patient/Guarantor: N/A. Relevant Radiology Images available: Yes. Pre-op teaching completed and patient verbalized understanding. The risks, benefits, and alternatives of sedation and/or procedure were discussed by physician. The patient agrees to continue. Procedure started. [facility] Clinical Fraility Score: 4: Vulnerable. Transformer Tester Indications: Other. Chest Pain Symptom Assessment: Non-anginal Chest Pain. Correct patient, site and procedure confirmed by cath team. PERRLA. Strong, equal hand steel analyst bilaterally. Lungs clear x 5 lobes. IV Site on Arrival: 20 gauge in the right anticubital. IV Site on Arrival: 20 gauge in the left anticubital. IV Fluids: 0.9% NaCl at KVO. 0 mL infused prior to slab puller. Pre Procedural Pulses: bilateral dorsalis pedis was Doppled. Pre Procedural Pulses: right posterior tibial was Doppled. Pre Procedural Pulses: left posterior tibial was 2+. Pre Procedural Pulses: bilateral radial was 2+. right groin was prepped with chloroprep then draped in the usual sterile fashion. right radial was prepped with chloroprep then draped in the usual sterile fashion. right brachial was prepped with chloroprep then draped in the usual sterile fashion. Physician arrived. Baseline sample Acquired. HR: 45 BPM. Physician scrubbed in. Immediate Pre-Procedure Time Out. Correct Patient: Yes; Correct Procedure: Yes; Correct Site: Yes; Correct Patient Position: Yes; Correct Supplies: Yes; Dried Flammable Prep: Yes; Blood Products Available: N/A;. Lidocaine 1% infiltrated to the right brachial. Sheath wire inserted through the right brachial IV catheter. IV catheter out OTW. Bailey-Columba MON catheter inserted. 0.025 wire inserted. Wire out. Contrast hand injected through the catheter. 0.025 wire inserted. Oximetry samples were obtained. Normal venous range: 60-85%. Normal arterial range: 95-100%. Pressure measurements obtained. Bailey-Columba out. Lidocaine 1% infiltrated to the right radial. Arterial access obtained. A 5 qatari Marcello catheter in over the glidewire. Multiple views taken of left coronary artery. Oxygen started at 2liters/min via nasal canula. Catheter redirected to the RCA. Catheter removed over the exchange wire. A 5 qatari JR4 catheter in over wire. Multiple views taken of right coronary artery. Dr. Valencia called to review films. EDP Sample taken: LV 169/0,22; HR: 61 BPM; SpO2: 99%. Pullback taken: LV 166/1,20; AO 161/65(100); Mean: 0mmHg, Peak to Peak: 0mmHg, SEP: 13sec/min; HR: 63 BPM; SpO2: 98%. Physician scrubbed out. Catheter attached to heparnized Saline flush at KVO to maintain patency. Dr. Valencia arrived. Dr. Valencia scrubbed in to perform intervention. Catheter removed over the exchange wire. 6 qatari XB 3 guide catheter was inserted over the wire. Runthrough guidewire was advanced through the guide catheter to lesion in the mid LAD. Inflation number : 1 A JORGE BROWN EUPHORA RX [id number] BALLOON was prepped and advanced across the Mid LAD , then inflated to 14 MARIA E for 0:13 seconds. Balloon out. Inflation Number : 2 A JORGE Polk DANN 2.25X12 ERENDIRA -Lot Number# _[id number] EXP: 01/13/2025 was prepped and advanced across the Mid LAD. The stent was deployed at 12 MARIA E for 0:20 seconds. Stent balloon out over wire. Results checked. Inflation number : 3 A JORGE BROWN EUPHORA RX [id number] BALLOON was prepped and advanced across the Mid LAD , then inflated to 14 MARIA E for 0:16 seconds. Balloon out. Results checked. Wire out. ACT drawn. Results out of range high seconds. Therapeutic limits - pre-heparin administration 90-150 seconds and monitoring heparin during a vascular procedure >250 seconds. Guide catheter out. A TR Band was successful obtaining hemostatsis at the Right Radial artery insertion site. A Manual Compression was successful obtaining hemostatsis at the Right Brachial Vein insertion site. Vital chart was stopped. Post Procedure: Pulses reassessed and unchanged. PERRLA. Strong, equal hand steel analyst bilaterally. No VTE prophylaxis required. Medication's Wasted: Lidocaine 1% = 18 mL. Medication's Wasted: Nitro = 49.6 mcg. Medication's Wasted: Other = Versed 1 mg. Medication's Wasted: Heparin = 2000 units. Total IV fluids: 500 mL. Post-op diagnosis: Stent to LAD. Complications: None. Estimated blood loss: 5mL-10mL. Responsiveness - Normal response to verbal stimuli; alert and oriented, PERRLA. Airway - Unaffected, no intervention required; spontaneous ventilation. Circulation: W/N/L, pulses unchanged. Nausea/Vomiting: No. Procedure completed. Patient transferred by stretcher to CPRU. Access Site Site: Right Brachial Vein Sheath Size: 6 Fr Hemostasis Method: Manual Compression Hemostasis Success: Successful Site: Right Radial artery Sheath Size: 6 Fr Hemostasis Method: TR Band Hemostasis Success: Successful Procedure Medications Start: 9:20 AM Stop: 9:20 AM Medication: Versed Amount: 1 mg Route: I.V. Start: 9:20 AM Stop: 9:20 AM Medication: Fentanyl Amount: 50 mcg Route: I.V. Start: 9:48 AM Stop: 9:48 AM Medication: Versed Amount: 1 mg Route: I.V. Start: 9:48 AM Stop: 9:48 AM Medication: Fentanyl Amount: 50 mcg Route: I.V. Start: 9:53 AM Stop: 9:53 AM Medication: Verapamil Amount: 5 mg Route: I.A. Start: 9:53 AM Stop: 9:53 AM Medication: Nitrogylcerin Amount: 200 mcg Route: I.A. Start: 10:03 AM Stop: 10:03 AM Medication: Heparin Amount: 5000 units Route: I.V. Start: 10:20 AM Stop: 10:20 AM Medication: Heparin Amount: 4000 units Route: I.V. Start: 10:35 AM Stop: 10:35 AM Medication: Brilinta Amount: 180 mg Route: P.O. Start: 10:29 AM Stop: 10:29 AM Medication: Versed Amount: 1 mg Route: I.V. Start: 10:31 AM Stop: 10:31 AM Medication: Nitrogylcerin Amount: 200 mcg Route: I.A. I, the attending physician, have reviewed and verified all procedure medications. Yes, all medications given per verbal order History/Risk Factors Hypertension: Yes Dyslipidemia: Yes Peripheral Arterial Disease (PAD): Yes Myocardial Infarction (NV): No Obesity: No Renal Disease: Yes Tobacco Use: Current/Recent(w/in 1 year) Prior Interventions PCI: Yes CABG: No Valve Surgery: No Date of PCI: 03/08/2018 Report Signatures Interventional Workflow Finalized by Philipp Valencia MD on 05/13/2024 12:44 PM Diagnostic Workflow Finalized by Dr Jose Manuel Whitman MD [facility] on 05/11/2024 04:53 PM
[2024-05-10] MEDS: diphenhydrAMINE 50 mg Capsule PO (08:30)
[2024-05-10] MEDS: aspirin 325 mg Tablet PO (08:30)
--- NOTE | 2024-05-10 08:46 | PM.HP ---
Providers/Chief Complaint Admitting Physician: HERMAN Whitman MD Primary Care Provider: ERIC Morris Chief Complaint: I20.0 History of Present Illness Wolf Godinez is a 84 year old male history of atherosclerotic heart diseas, status post multiple PCI's in 2018, he is presented with complaints of increasing episodes of chest pains requiring more frequent use of sublingual nitro and dyspnea on exertion/fatigue. This patient has a history of hypertension, dyslipidemia, peripheral artery disease, chronic kidney disease and chronic atrial fibrillation. He is on long-term oral anticoagulation. The Eliquis was held 3 days ago. He had a Myocardial perfusion imaging in May of last year which was unremarkable. In view of his ongoing and worsening symptoms, in order to further evaluate his coronary status, a cardiac catheterization was recommended. Patient had a recent lower extremity artery Doppler examination which revealed VIVIANA of 0.85 on the right side and 0.88 on the left side. Review of Systems Narrative: CONSTITUTIONAL: No fever or chills. EYES: No blurring of vision or other visual disturbances lately. ENT: No hoarseness of voice, auditory disturbances or sore throat. CARDIOVASCULAR: As mentioned above. RESPIRATORY: No significant cough. GASTROINTESTINAL: No hematemesis or melena. GENITOURINARY: No dysuria or hematuria. INTEGUMENTARY: No skin rashes or history of skin cancer. NEURO: No transient ischemic attacks or amaurosis. PSYCHIATRIC: No history of psychosis or major depression. HEMATOLOGIC: No bleeding disorders or significant anemia. ENDOCRINE: No history of polyuria or polydipsia. MUSCULOSKELETAL: No recent joint pain or swelling. ALLERGY/IMMUNOLOGY: As mentioned above. Medications/Allergies Home Medications Medication Instructions Recorded Confirmed Last Taken Type pantoprazole 20 mg tablet,delayed 20 mg PO BID 09/28/19 05/04/24 09/07/23 History release albuterol sulfate 90 mcg/actuation 2 puff inhalation Q6H PRN Wheezing 05/22/20 05/04/24 09/11/23 History aerosol inhaler ticagrelor 90 mg tablet 90 mg PO BID #180 tabs 09/03/20 05/10/24 05/09/24 07:00 Rx ranolazine 500 mg tablet,extended 500 mg PO BID 12/20/20 05/04/24 09/07/23 History release,12 hr isosorbide mononitrate 120 mg 120 mg PO DAILY #90 tabs 07/08/21 05/04/24 09/07/23 Rx tablet,extended release 24 hr omega 5-lpw-dxj-fish oil 300 1 cap PO DAILY 03/31/22 05/04/24 09/07/23 History mg-1,000 mg capsule metoprolol succinate 25 mg 25 mg PO DAILY 06/05/22 05/10/24 05/09/24 07:00 History tablet,extended release 24 hr pravastatin 80 mg tablet 40 mg PO DAILY 06/05/22 05/04/24 09/07/23 History Orthopedic shoes with custom soles #1 ea 11/11/22 05/04/24 09/07/23 Rx supports nitroglycerin 0.4 mg sublingual 0.4 mg sublingual Q5M PRN chest 03/30/23 05/04/24 1 Week Ago Rx tablet (Nitrostat) pain #30 tabs ~09/02/23 guaifenesin 600 mg tablet, 1,200 mg (2 x 600 mg) PO BID #30 04/17/23 05/04/24 09/07/23 Rx extended release 12 hr (Mucinex) tabs apixaban 2.5 mg tablet 2.5 mg PO BID #180 tabs 05/21/23 05/10/24 05/07/24 07:00 Rx amlodipine 5 mg tablet 5 mg PO DAILY 07/20/23 05/04/24 09/07/23 History furosemide 40 mg tablet (Lasix) 40 mg PO DAILY PRN edema #30 tabs 04/05/24 05/10/24 Unknown Rx potassium chloride 8 mEq 8 meq PO DAILY PRN edema #30 caps 04/05/24 05/10/24 05/09/24 07:00 Rx capsule,extended release Allergies Allergy/AdvReac Type Severity Reaction Status Date / Time No Known Allergies Allergy Verified 05/04/24 13:16 PFSH Acute PFSH: Medical History Smoking addiction Diabetic peripheral neuropathy associated with type 2 diabetes mellitus Trigger finger, left ring finger Trigger finger, right ring finger COPD (chronic obstructive pulmonary disease) Peripheral arterial disease Anal cancer Dyslipidemia (high LDL; low HDL) ASHD (arteriosclerotic heart disease) Hypertension Atrial fibrillation Hyperparathyroidism Insomnia Chronic kidney disease Gout Anemia GERD (gastroesophageal reflux disease) Surgical History H/O hernia repair H/O cervical spine surgery S/P arterial stent right leg in 2010, left leg in 2017 History of coronary angioplasty with insertion of stent History of back surgery Spinal fusion H/O excision of epidermal inclusion cyst (05/30/20) left chest wall Status post colonoscopy History of cataract surgery Family History Other Family history unknown Social History Smoking and tobacco/nicotine status: current every day tobacco/nicotine user cigarettes Packs smoked per day: 1.5 Alcohol intake: current Alcohol intake frequency: 0-2 Drinks per Day Alcohol type: beer and hard liquor Substance/Drug Use: never Household members: spouse Marital status: Current occupational status: retired Physical Exam Narrative: GENERAL: The patient is alert and oriented times three. Not in any acute distress. HEENT: No significant pallor, icterus or lymphadenopathy.Oral cavity: There are no mucous membrane lesions. NECK: Trachea appears to be central. No masses noted. No JVD or thyromegaly appreciated. RESPIRATORY: Chest is symmetrical. No intercostals muscle retraction or any accessory muscle activation. There is no chest wall tenderness. Breath sounds are heard bilaterally. No rales or rhonchi heard. No evidence of any consolidation. BREASTS: Deferred. HEART: The heart sounds are normal. No S3 or S4. Short systolic murmur in the left upper border. No diastolic murmurs. No pericardial rub ABDOMEN: No vessel pulsations or distention. No tenderness. No organomegaly appreciated. Bowel sounds are normally heard. : Deferred. RECTAL: Deferred. LYMPHATIC: No lymphadenopathy noted in the neck. EXTREMITIES: No edema or cyanosis. No clubbing. Peripheral pulses are weak bilaterally MUSCULOSKELETAL: No acute joint deformities or swelling SKIN: There are no significant rashes or ecchymosis NEUROPSYCHIATRIC: The patient is alert and oriented x3. Appears to be in a good mood. No tremors or rigidity noted. Data 05/10/24 08:30 05/10/24 08:30 Other Labs: Laboratory Last Values Sodium 141 mmol/L (136-145) 05/10/24 08:30 Potassium 3.9 mmol/L (3.5-5.1) 05/10/24 08:30 Chloride 106 mmol/L (98-107) 05/10/24 08:30 Carbon Dioxide 24 mmol/L (22-29) 05/10/24 08:30 Anion Gap 14.9 (5-19) 05/10/24 08:30 BUN 28 mg/dL (8-23) H 05/10/24 08:30 Creatinine 1.8 mg/dL (0.7-1.2) H 05/10/24 08:30 GFR Calculation Not Reportable 05/10/24 08:30 Glucose 144 mg/dL (65-115) H 05/10/24 08:30 Calculated Osmolality 300 mOsm/kg (285-295) H 05/10/24 08:30 Calcium 10.2 mg/dL (8.5-10.5) 05/10/24 08:30 A&P Assessment and plan (1) Atherosclerotic heart disease [place] coronary artery w/angina pectoris: Patient had initial PCI in November 2017. He had a PCI of the mid LAD and the mid and distal RCA. He came back to the hospital in February with stent thrombosis. Underwent repeat PCI of the mid LAD and RCA. He also had an open obtuse marginal artery lesion which was intervened at that time. Qualifiers: [place] vs. transplanted heart: [place] heart Qualified Code(s): I25.119 - Atherosclerotic heart disease of [place] coronary artery with unspecified angina pectoris (2) Dyslipidemia (high LDL; low HDL): Continue the current management. (3) PVD (peripheral vascular disease): Continue on the current treatment. (4) Hypertension: Blood pressure she is a stage II. Need to optimize antihypertensive medications. Qualifiers: Hypertension type: essential hypertension Qualified Code(s): I10 - Essential (primary) hypertension (5) Atrial fibrillation: Patient is on long-term oral anticoagulation. Ventricular rate is under control. The Eliquis is on hold Qualifiers: Atrial fibrillation type: longstanding persistent Qualified Code(s): I48.11 - Longstanding persistent atrial fibrillation (6) Chronic kidney disease: The patient will be carefully hydrated before and after the procedure. Qualifiers: Chronic kidney disease stage: stage 3 (moderate) Qualified Code(s): N18.3 - Chronic kidney disease, stage 3 (moderate) Plan In view of the patient's history, ongoing worsening of the symptoms, limiting his functional status, in order to further evaluate his coronary status, and a cardiac catheterization would be appropriate. This was discussed with the patient and his family in detail. The risk of bleeding, hematoma, vascular injury, myocardial infarction, myocardial perforation, malignant cardiac arrhythmias ,CVA, renal failure and other concomitant complications were explained in detail. In view of the patient is a chronic kidney disease, he carries a higher risk for contrast-induced nephropathy. Patient and the family understand these issues well. He also understand that we do not have a surgical backup in the hospital at this time. If he requires emergency surgery, he may need to be transferred to another facility. Patient and the family understand the implications and want to go ahead with the procedure. Attestations Medical Necessity Statement*: May require overnight stay for IV hydration and close monitoring, following the angiogram Coding Level of Care Code 50231 Diagnoses Atherosclerosis of [place] coronary artery of [place] heart with angina pectoris I25.119 [place] vs. transplanted heart: [place] heart Dyslipidemia (high LDL; low HDL) E78.5 PVD (peripheral vascular disease) I73.9 Essential hypertension I10 Hypertension type: essential hypertension Longstanding persistent atrial fibrillation I48.11 Atrial fibrillation type: longstanding persistent Stage 3 chronic kidney disease N18.3 Chronic kidney disease stage: stage 3 (moderate)
--- NOTE | 2024-05-10 08:50 | W.PM.OPSUD ---
Surgery/Procedure H&P Update DATE OF PROCEDURE: May 10, 2024 DATE H&P PERFORMED: 05/10/24 H&P UPDATE INFORMATION: I have reviewed H&P completed within last 30 days, I have examined patient prior to procedure and No changes to prior documentation PREOP DIAGNOSIS: Atherosclerotic heart diseas PRIMARY INDICATION FOR PROCEDURE: Patient with worsening angina, previous history of multivessel PCI, hypertension, dyslipidemia, peripheral artery disease and chronic atrial fibrillation. PLANNED PROCEDURE: Operation Date: 05/10/24 08:30 Proposed Procedures p Cardiac Catheterization - R and LHC(Bilateral) - Jose Manuel Whitman MD PATIENT REASSESSED PRIOR TO SEDATION, WITH NO CHANGE NOTED: Yes PHYSICAL EXAM: oriented x 3, clear to auscultation bilaterally and regular rate & rhythm (Irregularly irregular rhythm) AIRWAY EVAL/ANESTHESIA PLAN: normal airway, see other exam findings, Monitored Anesthesia, Local Anesthesia, Risks, benefits & alternatives of sedation and/or procedure discussed and Patient agrees to continue as planned ADDITIONAL INFORMATION: Because the patient is a chronic kidney disease, he carries a higher risk for contrast-induced nephropathy. Patient and the family understand this well.
[2024-05-10 08:51] LABS: Anion Gap 14.9 (5-19); Blood Urea Nitrogen 28 mg/dL (8-23); Calcium 10.2 mg/dL (8.5-10.5); Carbon Dioxide 24 mmol/L (22-29); Chloride 106 mmol/L (98-107); Glucose 144 mg/dL (65-115); Osmolality Calculated 300 mOsm/kg (285-295); Potassium 3.9 mmol/L (3.5-5.1); Sodium 141 mmol/L (136-145)
[2024-05-10 10:16] LABS: Basophils % 0.3 %; Eosinophils # 0.3 10^3/uL (0.0-0.8); Hematocrit 40.2 % (37-53); Lymphocytes # 5.4 10^3/uL (0.8-4.8); Lymphocytes % 41.8 %; Mean Corpuscular HGB Conc 30.6 g/dL (30-55); Mean Corpuscular Hemoglobin 27.3 pg (27-33); Mean Corpuscular Volume 89.3 fl (82-101); Mean Platelet Volume 11.2 fL (7.4-10.4); Monocytes # 0.8 10^3/uL (0.2-0.9); Monocytes % 6.5 %; Neutrophils # 6.29 10^3/uL (1.8-7.7); Neutrophils % 48.9 %; Nucleated Red Blood Cells % 0 %; Platelet Count 176 10^3/cmm (157-399); Red Cell Distribution Width 18.7 % (12.1-15.1); White Blood Count 12.86 10^3/uL (3.29-11.43)
[2024-05-10 10:22] LABS: Arterial Blood Gas Hematocrit 32.4 % (42-52); Blood Gas Allen Test Pos; Blood Gas Sample Type Arterial; HGB O2 Sat 49.4 % (95-100); Total Hemoglobin 10.6 g/dL (14-18)
[2024-05-10 10:22] LABS: Alveolar-Arterial Oxygen Gradi 8.2 mmHg (5-10); Arterial Blood Gas Hematocrit 31.7 % (42-52); Blood Gas Allen Test Pos; Blood Gas Sample Type Arterial; Carboxyhemoglobin 2.9 %THgb (0.4-20.1); HGB O2 Sat 51.5 % (95-100); Total Hemoglobin 10.4 g/dL (14-18)
[2024-05-10 10:23] LABS: Alveolar-Arterial Oxygen Gradi 3.8 mmHg (5-10); Arterial Blood Gas Hematocrit 34.1 % (42-52); Blood Gas Allen Test Pos; Blood Gas Sample Type Arterial; Carboxyhemoglobin 2.8 %THgb (0.4-20.1); HGB O2 Sat 91.4 % (95-100); Total Hemoglobin 11.1 g/dL (14-18)
[2024-05-10 10:23] LABS: Alveolar-Arterial Oxygen Gradi 7.9 mmHg (5-10); Arterial Blood Gas Hematocrit 29.9 % (42-52); Blood Gas Allen Test Pos; Blood Gas Sample Type Arterial; Carboxyhemoglobin 2.9 %THgb (0.4-20.1); HGB O2 Sat 54.6 % (95-100); Total Hemoglobin 9.8 g/dL (14-18)
[2024-05-10 10:36] LABS: Blood Gas Operator Identificat BROMA; Blood Gas Sample Site AO
[2024-05-10 10:37] LABS: Blood Gas Operator Identificat BROMA; Blood Gas Sample Site PA
[2024-05-10 10:45] LABS: Blood Gas Operator Identificat BROMA
[2024-05-10 10:46] LABS: Blood Gas Sample Site RV
[2024-05-10 10:46] LABS: Blood Gas Operator Identificat BROMA
[2024-05-10 10:47] LABS: Blood Gas Sample Site RA
--- NOTE | 2024-05-10 12:57 | PC.NURSE ---
ICU 4 room ready. Report called to SUNDAY Mane. Pt transferred to ICU via wheelchair at this time. TR band remains in place. Site is asymptomatic.
[2024-05-10] MEDS: sodium chloride 0.9% 1,000 ML 50 ML IV ×2 (13:00→21:02)
--- NOTE | 2024-05-10 13:20 | PC.NURSE ---
1300 Recieved patient from cath lab manager via wheelchair, awake and alert. TR band on right radial area, nurse has let out 2ml of air lilian 15 minutes ago. Patient on room air, Sat good, only complaint is of xiomy legs that has this pain at home, states is from blood clots, rating pain at 4 and does not take any meds for it or does anything to releive the pain.
--- NOTE | 2024-05-10 16:38 | PC.NURSE ---
At 1320 right radial TR band has no drainage, no edema. Removed 2ml air from TR band 1415 Right radial TR band has no drainage and no edema. Removed 2ml air from TR band 1435 Right radial TR band has no drainage and no edema. Removed 2ml air from TR band. 1505 Right radial TR band has no drainage and no edema. Removed 2ml air from TR band. 1600 Right radial TR band has fresh red/blood drainage, no edema, Placed 6ml of air back into TR band. 1615 Right radial TR band has no more drainage and no edema noted. No change in air in TR band.
[2024-05-10] MEDS: ticagrelor 90 mg Tablet PO (17:57)
--- NOTE | 2024-05-10 18:05 | PC.NURSE ---
1800 Right radial TR band does have the old blood drainage (small amount) under it, but no new drainage noted, no firmness noted. No change in air to the TR band at this time. Patient sat up on edge of bed for dinner, ate well.
--- NOTE | 2024-05-10 21:41 | PC.NURSE ---
TR band removed at 2130. No bleeding, no hematoma noted. Dressing applied.
[2024-05-11] VITALS (7 sets, daily range): BP systolic 113–152; BP diastolic 52–57; PULSE 70–84; RESP 4–19; TEMP 35.9–36.7; O2SAT 94–98; BMI 29.5
[2024-05-11 03:52] LABS: Basophils % 0.3 %; Eosinophils # 0.2 10^3/uL (0.0-0.8); Eosinophils % 2.1 %; Hematocrit 38.3 % (37-53); Lymphocytes # 3.6 10^3/uL (0.8-4.8); Lymphocytes % 34.2 %; Mean Corpuscular HGB Conc 29.8 g/dL (30-55); Mean Corpuscular Volume 90.5 fl (82-101); Mean Platelet Volume 10.6 fL (7.4-10.4); Monocytes # 0.8 10^3/uL (0.2-0.9); Monocytes % 7.6 %; Neutrophils # 5.84 10^3/uL (1.8-7.7); Neutrophils % 55.1 %; Nucleated Red Blood Cells % 0 %; Platelet Count 145 10^3/cmm (157-399); Red Blood Count 4.23 10^6/uL (3.85-5.65); Red Cell Distribution Width 18.7 % (12.1-15.1)
[2024-05-11 04:18] LABS: Anion Gap 15.3 (5-19); Blood Urea Nitrogen 27 mg/dL (8-23); Calcium 9.5 mg/dL (8.5-10.5); Carbon Dioxide 20 mmol/L (22-29); Chloride 109 mmol/L (98-107); Creatinine Clr Calc Pharmacy 38.8596; Glucose 139 mg/dL (65-115); Osmolality Calculated 297 mOsm/kg (285-295); Potassium 4.3 mmol/L (3.5-5.1); Sodium 140 mmol/L (136-145)
--- NOTE | 2024-05-11 07:04 | PC.PHAR ---
[facility] 05/11/24 7:02am
[2024-05-11] MEDS: apixaban 5 mg Tablet 2.5 MG PO (08:15)
[2024-05-11] MEDS: atorvastatin 40 mg Tablet PO (08:15)
[2024-05-11] MEDS: amlodipine 5 mg Tablet PO (08:16)
[2024-05-11] MEDS: aspirin 81 mg EC Tablet PO (08:17)
[2024-05-11] MEDS: ticagrelor 90 mg Tablet PO (08:17)
[2024-05-11] MEDS: metoprolol succinate ER (24 HR) 25 mg Tablet PO (08:18)
[2024-05-11] MEDS: isosorbide mononitrate ER 60 mg Tablet 120 MG PO (08:27)
--- NOTE | 2024-05-11 08:32 | PC.PHAR ---
[facility] Eliquis dosage increased from 2.5mg to 5 mg twice daily.
--- NOTE | 2024-05-11 10:05 | PM.PN ---
Subjective Subjective: Final progress note Patient admitted to the hospital following the cardiac catheterization for observation, IV fluid administration because of the chronic kidney disease. Patient underwent the cardiac catheterization yesterday which revealed a high-grade lesion in the romel stent region of the mid LAD. This was intervened. Patient had an uneventful postprocedure course. No hematoma bleeding from the radial arterial puncture site. Vital signs remained stable Medications: Medication Review Details: Current Medications Acetaminophen (Acetaminophen 325 Mg Tablet) 650 mg PO Q6H PRN PRN Reason: MILD PAIN Al Hydrox/Mg Hydrox/Simethicone (Zvhb-Ehr-Gwgublmnt-Pino 30 Ml Udc) 30 ml PO Q15M PRN PRN Reason: INDIGESTION Amlodipine Besylate (Amlodipine 5 Mg Tablet) 5 mg PO DAILY COUNT INCLUDES THE [facility] Last Admin: 05/11/24 08:16 Dose: 5 mg Apixaban (Apixaban 5 Mg Tablet) 2.5 mg PO BID COUNT INCLUDES THE [facility] Last Admin: 05/11/24 08:15 Dose: 2.5 mg Aspirin (Aspirin 81 Mg Ec Tablet) 81 mg PO DAILY COUNT INCLUDES THE [facility] Last Admin: 05/11/24 08:17 Dose: 81 mg Atorvastatin Calcium (Atorvastatin 40 Mg Tablet) 40 mg PO DAILY COUNT INCLUDES THE [facility] Last Admin: 05/11/24 08:15 Dose: 40 mg Atropine Sulfate (Atropine 1 Mg/Ml Sdv 1 Ml) 0.5 mg IVP PRN PRN PRN Reason: Symptomatic bradycardia Fentanyl (Fentanyl 50 Mcg/Ml Inj 2ml) 50 mcg IVP PRN PRN PRN Reason: Prior to sheath removal Furosemide (Furosemide 40 Mg Tablet) 40 mg PO DAILY PRN PRN Reason: edema Sodium Chloride (Sodium Chloride 0.9%) 1,000 mls @ 100 mls/hr IV .Q10H COUNT INCLUDES THE [facility] Last Admin: 05/11/24 09:32 Dose: Not Given Isosorbide Mononitrate (Isosorbide Mononitrate Er 60 Mg Tablet) 120 mg PO DAILY COUNT INCLUDES THE [facility] Last Admin: 05/11/24 08:27 Dose: 120 mg Magnesium Hydroxide (Magnesium Hydroxide 30 Ml Udc) 30 ml PO DAILY PRN PRN Reason: CONSTIPATION Metoprolol Succinate (Metoprolol Succinate Er (24 Hr) 25 Mg Tablet) 25 mg PO DAILY COUNT INCLUDES THE [facility] Last Admin: 05/11/24 08:18 Dose: 25 mg Naloxone HCl (Naloxone 0.4 Mg/Ml Sdv) 0.1 mg IVP Q2M PRN PRN Reason: RESPIRATORY RATE < 8/MIN Nitroglycerin (Nitroglycerin 0.4 Mg Sublingual Tablet) 0.4 mg SUBLINGUAL Q5M PRN PRN Reason: CHEST PAIN Potassium Chloride (Potassium Chloride Oral Liq 20 Meq/15 Ml Udc) 8 meq PO DAILY PRN PRN Reason: edema Temazepam (Temazepam 15 Mg Capsule) 15 mg PO BEDTIME PRN PRN Reason: INSOMNIA Ticagrelor (Ticagrelor 90 Mg Tablet) 90 mg PO BID ASHLEY Last Admin: 05/11/24 08:17 Dose: 90 mg Vitals/I&O/Wt Last Vital Signs Temp 96.7 F L 05/11/24 07:34 Pulse 84 05/11/24 08:00 Resp 19 H 05/11/24 07:00 BP 113/57 05/11/24 08:00 Pulse Ox 94 05/11/24 08:00 O2 Del Method Room Air 05/10/24 19:55 O2 Flow Rate 2 05/10/24 16:32 05/10/24 05/11/24 05/11/24 22:59 06:59 14:59 Intake Total 641.667 / 641.667 240 / 240 Output Total 425 / 425 200 / 625 Balance 216.667 / 216.667 -200 / 16.667 240 / 240 Weight last 48 hrs Weight 199 lb 8.293 oz Weight 199 lb 1 oz Weight 201 lb Physical Exam Narrative: GENERAL: The patient is alert and oriented times three. Not in any acute distress. HEENT: No significant pallor, icterus or lymphadenopathy.Oral cavity: There are no mucous membrane lesions. NECK: Trachea appears to be central. No masses noted. No JVD or thyromegaly appreciated. RESPIRATORY: Chest is symmetrical. No intercostals muscle retraction or any accessory muscle activation. There is no chest wall tenderness. Breath sounds are heard bilaterally. No rales or rhonchi heard. No evidence of any consolidation. BREASTS: Deferred. HEART: The heart sounds are normal. No S3 or S4. Short systolic murmur in the left upper border. No diastolic murmurs. No pericardial rub ABDOMEN: No vessel pulsations or distention. No tenderness. No organomegaly appreciated. Bowel sounds are normally heard. : Deferred. RECTAL: Deferred. LYMPHATIC: No lymphadenopathy noted in the neck. EXTREMITIES: No edema or cyanosis. No clubbing. Peripheral pulses are weak bilaterally MUSCULOSKELETAL: No acute joint deformities or swelling SKIN: There are no significant rashes or ecchymosis NEUROPSYCHIATRIC: The patient is alert and oriented x3. Appears to be in a good mood. No tremors or rigidity noted. Data 05/11/24 03:14 05/11/24 03:14 Other Labs: Laboratory Last Values WBC 10.60 10^3/uL (3.29-11.43) 05/11/24 03:14 RBC 4.23 10^6/uL (3.85-5.65) 05/11/24 03:14 Hgb 11.40 g/dL (11.27-16.99) 05/11/24 03:14 Hct 38.3 % (37-53) 05/11/24 03:14 MCV 90.5 fl (82-101) 05/11/24 03:14 MCH 27.0 pg (27-33) 05/11/24 03:14 MCHC 29.8 g/dL (30-55) L 05/11/24 03:14 RDW 18.7 % (12.1-15.1) H 05/11/24 03:14 Plt Count 145 10^3/cmm (157-399) L 05/11/24 03:14 MPV 10.6 fL (7.4-10.4) H 05/11/24 03:14 Neut % (Auto) 55.1 % 05/11/24 03:14 Lymph % (Auto) 34.2 % 05/11/24 03:14 [place] % (Auto) 7.6 % 05/11/24 03:14 Eos % (Auto) 2.1 % 05/11/24 03:14 Baso % (Auto) 0.3 % 05/11/24 03:14 Neut # (Auto) 5.84 10^3/uL (1.8-7.7) 05/11/24 03:14 Lymph # (Auto) 3.6 10^3/uL (0.8-4.8) 05/11/24 03:14 [place] # (Auto) 0.8 10^3/uL (0.2-0.9) 05/11/24 03:14 Eos # (Auto) 0.2 10^3/uL (0.0-0.8) 05/11/24 03:14 Baso # (Auto) 0.0 10^3/uL (0.0-0.1) 05/11/24 03:14 Nucleated RBC % (auto) 0 % 05/11/24 03:14 Nucleated RBCs # 0.0 /100WBC 05/11/24 03:14 Specimen Type Arterial 05/10/24 09:57 Sample Site Ao 05/10/24 09:57 Herb Test Pos 05/10/24 09:57 A-a O2 Gradient 3.8 mmHg (5-10) L 05/10/24 09:57 Hematocrit 34.1 % (42-52) L 05/10/24 09:57 Hgb O2 Saturation 91.4 % (95-100) L 05/10/24 09:57 Carboxyhemoglobin 2.8 %THgb (0.4-20.1) 05/10/24 09:57 Methemoglobin 1.0 % (0.4-1.5) 05/10/24 09:57 Total Hemoglobin 11.1 g/dL (14-18) L 05/10/24 09:57 O2 Delivery Device Not Reportable 05/10/24 09:57 Bridge Repair Crew Person ID Broma 05/10/24 09:57 Sodium 140 mmol/L (136-145) 05/11/24 03:14 Potassium 4.3 mmol/L (3.5-5.1) 05/11/24 03:14 Chloride 109 mmol/L (98-107) H 05/11/24 03:14 Carbon Dioxide 20 mmol/L (22-29) L 05/11/24 03:14 Anion Gap 15.3 (5-19) 05/11/24 03:14 BUN 27 mg/dL (8-23) H 05/11/24 03:14 Creatinine 1.6 mg/dL (0.7-1.2) H 05/11/24 03:14 GFR Calculation Not Reportable 05/11/24 03:14 Glucose 139 mg/dL (65-115) H 05/11/24 03:14 Calculated Osmolality 297 mOsm/kg (285-295) H 05/11/24 03:14 Calcium 9.5 mg/dL (8.5-10.5) 05/11/24 03:14 A&P Assessment and plan (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 He had a PCI of the mid LAD and the mid and distal RCA. He came back to the hospital in February with stent thrombosis. Underwent repeat PCI of the mid LAD and RCA. He also had a high-grade obtuse marginal artery lesion which was intervened at that time. The cardiac catheterization yesterday revealed patent stented segments with a high-grade lesion just at the distal end of the stented segment of the left anterior descending artery. Patient underwent PCI of this lesion. There was a moderate proximal circumflex artery disease. There is also moderate in-stent stenosis in the RCA. It was decided to leave these lesions alone and be treated medically. Qualifiers: [place] vs. transplanted heart: [place] heart Qualified Code(s): I25.119 - Atherosclerotic heart disease of [place] coronary artery with unspecified angina pectoris (2) Dyslipidemia (high LDL; low HDL): Continue the current management. (3) PVD (peripheral vascular disease): Continue on the current treatment. (4) Hypertension: The blood pressure seems to be fairly controlled at this time. Qualifiers: Hypertension type: essential hypertension Qualified Code(s): I10 - Essential (primary) hypertension (5) Atrial fibrillation: Patient is on long-term oral anticoagulation. Ventricular rate is under control. The Eliquis is on hold. This will be restarted tomorrow. Qualifiers: Atrial fibrillation type: longstanding persistent Qualified Code(s): I48.11 - Longstanding persistent atrial fibrillation (6) Chronic kidney disease: The patient was hydrated throughout the hospital stay. The kidney functions today appears to be stable with a creatinine of 1.6, dropped from 1.8 Qualifiers: Chronic kidney disease stage: stage 3 (moderate) Qualified Code(s): N18.3 - Chronic kidney disease, stage 3 (moderate) Plan Since the patient is remaining stable, he may be discharged home today. Will continue on the current medication. Eliquis will be restarted tomorrow. Attestations Medical Necessity Statement*: Being discharged home today. Coding Level of Care Code 51675 Diagnoses Atherosclerosis of [place] coronary artery of [place] heart with angina pectoris I25.119 [place] vs. transplanted heart: [place] heart Dyslipidemia (high LDL; low HDL) E78.5 PVD (peripheral vascular disease) I73.9 Essential hypertension I10 Hypertension type: essential hypertension Longstanding persistent atrial fibrillation I48.11 Atrial fibrillation type: longstanding persistent Stage 3 chronic kidney disease N18.3 Chronic kidney disease stage: stage 3 (moderate)
--- NOTE | 2024-05-11 11:33 | PC.NURSE ---
All D/C instructions educated to patient and , transported home by
== END 2024-05-11 11:34 | disposition home or self-care (01) ==
LOC: CCL 08:13 → ICU 13:29
PROVIDERS: Internal Medicine; PCP Nurse Practitioner Family; Visit Provider Internal Medicine Cardiovascular Disease
DX: I25.119 Atherosclerotic heart disease of native coronary artery with unspecified angina pectoris (principal); E78.5 Hyperlipidemia, unspecified; E11.22 Type 2 diabetes mellitus with diabetic chronic kidney disease; I12.9 Hypertensive chronic kidney disease with stage 1 through stage 4 chronic kidney disease, or unspecified chronic kidney disease; N18.30 Chronic kidney disease, stage 3 unspecified; I73.9 Peripheral vascular disease, unspecified; I48.11 Longstanding persistent atrial fibrillation; J44.9 Chronic obstructive pulmonary disease, unspecified; G47.30 Sleep apnea, unspecified
CPT/HCPCS: 36415; 80048; 82810; 85025; 85347; 93460; 96374; 96375; 99152; 99153; C1725; C1751; C1769; C1874; C1887; C1894; C9600; J1644; J2250; J3010; J3490; J7030; Q0163; Q9967

== ENCOUNTER → 2024-05-19 12:46 | Outpatient (BNVA) | payer OTHER, SELFPAY | PROVIDERS: PCP Nurse Practitioner Family; Visit Provider Nurse Practitioner Family | DX: I25.10 Atherosclerotic heart disease of native coronary artery without angina pectoris (principal); Z68.30 Body mass index [BMI] 30.0-30.9, adult | CPT/HCPCS: 80048; 99214 ==

== ENCOUNTER → 2024-07-18 12:50 | Outpatient (BNVA) | payer OTHER, SELFPAY | PROVIDERS: PCP Nurse Practitioner Family; Visit Provider Internal Medicine Cardiovascular Disease | DX: I25.10 Atherosclerotic heart disease of native coronary artery without angina pectoris (principal); I10 Essential (primary) hypertension; E78.5 Hyperlipidemia, unspecified; I73.00 Raynaud's syndrome without gangrene | CPT/HCPCS: 99214 ==

== ENCOUNTER → 2024-08-16 10:29 | Outpatient (BNVA) | payer OTHER, SELFPAY | PROVIDERS: PCP Nurse Practitioner Family; Visit Provider Podiatrist Foot & Ankle Surgery | DX: I73.9 Peripheral vascular disease, unspecified (principal); L84 Corns and callosities; L60.3 Nail dystrophy; E11.42 Type 2 diabetes mellitus with diabetic polyneuropathy | CPT/HCPCS: 11056; 11721 ==

== ENCOUNTER → 2024-12-14 08:49 | Outpatient (BNVA) | payer OTHER, SELFPAY | PROVIDERS: PCP Nurse Practitioner Family; Visit Provider Internal Medicine Rheumatology | DX: M25.542 Pain in joints of left hand (principal); Z79.899 Other long term (current) drug therapy; Z71.85 Encounter for immunization safety counseling; M15.9 Polyosteoarthritis, unspecified; E11.42 Type 2 diabetes mellitus with diabetic polyneuropathy; E21.0 Primary hyperparathyroidism | CPT/HCPCS: 36415; 73130; 73630; 80076; 82306; 82565; 83036; 83520; 85025; 85651; 86140; 86200; 86431; 86480; 86704; 86803; 87340; 99204 ==

== ENCOUNTER → 2024-12-20 13:22 | Outpatient (BNVA) | payer OTHER, SELFPAY | PROVIDERS: PCP Nurse Practitioner Family; Visit Provider Internal Medicine Cardiovascular Disease | DX: I25.119 Atherosclerotic heart disease of native coronary artery with unspecified angina pectoris (principal); I11.0 Hypertensive heart disease with heart failure; I50.23 Acute on chronic systolic (congestive) heart failure; F17.210 Nicotine dependence, cigarettes, uncomplicated; I48.11 Longstanding persistent atrial fibrillation; I73.9 Peripheral vascular disease, unspecified; E78.5 Hyperlipidemia, unspecified | CPT/HCPCS: 99214 ==

== ENCOUNTER → 2024-12-26 15:19 | Outpatient (BNVA) | payer OTHER, SELFPAY | PROVIDERS: PCP Nurse Practitioner Family; Visit Provider Internal Medicine Cardiovascular Disease | DX: I73.9 Peripheral vascular disease, unspecified (principal); I25.10 Atherosclerotic heart disease of native coronary artery without angina pectoris; Z79.01 Long term (current) use of anticoagulants; Z79.82 Long term (current) use of aspirin; F17.210 Nicotine dependence, cigarettes, uncomplicated; I10 Essential (primary) hypertension | CPT/HCPCS: 99214 ==

== ENCOUNTER 2025-01-09 05:56 | Outpatient (CLI) | payer OTHER, SELFPAY ==
--- NOTE | 2025-01-05 08:40 | PC.NURSE ---
Called the patient regarding his peripheral angiogram for Thursday01/09/2025 and instructed to hold his Eliquis x 48 hours prior. He voiced his understanding.
[2025-01-09] VITALS (32 sets, daily range): BP systolic 112–192; BP diastolic 57–100; PULSE 69–104; RESP 10–20; TEMP 36.2–36.7; O2SAT 91–100; BMI 30.4
--- NOTE | 2025-01-09 06:00 | XACV_ITS ---
Exam Room: 2 Ht: 175 cm Wt: 93 kg BSA: 2.16 m2 Gender: Male : 1940 Any Known Allergies: No known allergies Exam Priority: Routine Procedure(s): Procedure Description: Diagnostic procedure Procedure Description: Peripheral Cath Diagnostic Procedure Procedure Description: Abdominal aortic angiography Procedure Description: Lower extremities' angiography Procedure Description: Peripheral vascular Intervention Procedure Description: PV Balloon Procedure Description: Miscellaneous Procedure Description: ACT KHLAWRENCEUAnthony, Bach; Interventional Findings * Intervention of the proximal and mid right SFA with balloon angioplasty: Percutaneous angioplasty of the right mid SFA: After placing long sheath in the right common femoral artery, selective peripheral angiogram was obtained of the right lower extremity with runoff to assess right SFA popliteal and below the knee. After confirming high-grade mid SFA and proximal SFA stenosis which are the culprit.Glidewire was used to cross proximal and mid SFA lesion without any difficulty. Balloon angioplasty using AB [place] 35 OTW 6 x 20 x 135 balloon was performed, balloon was inflated for 2 minutes at 6 maria e. Good angiographic result was obtained without any complication. Percutaneous angioplasty of the proximal right SFA: Same mid SFA balloon was pulled back and placed in the proximal right SFA using a B. [place] 35 OTW 6 x 20 x 135 balloon was inflated at 6 maria e for 2 minutes, excellent angiographic result with good flow was noted without any complication.Peripheral angiogram was obtained again through the right common femoral sheath which shows patent right proximal SFA lesion which was reduced from 70% to 10% and mid high-grade SFA right lesion which was reduced from 90% to 10%. Good 3 vessel runoff was noted below the knee. * : 70% stenosis treated with a AB [place] 35 OTW [id number]. * : 70% stenosis treated with a AB [place] 35 OTW [id number]. Lower Extremity Diagnostic Findings Indication for peripheral angiogram: Lifestyle limiting claudication bilaterally more on the right than left Catheters used: UF, long 6 [place] destination sheath, seeker catheter UF catheter was placed in the abdominal aorta and renal artery level abdominal aortogram was obtainedAbdominal aortogram: Luminal irregularity without significant Right renal artery: Luminal irregularity without significant Left renal artery: Luminal irregularity without significantRight common iliac: Luminal irregularity without significant stenosis Right external iliac: Luminal irregularity without significant Right internal iliac: Luminal irregularity without significant Right common femoral artery: Luminal irregularity without significant Right profundofemoral artery: Luminal irregularity without significant Right SFA: Proximal moderate diffuse stenosis, mid high-grade napkin ring type stenosis which is the culprit Right popliteal artery: Luminal irregularities without significant Right tibioperoneal trunk: Luminal irregularity without significant Right anterior tibial artery: Luminal irregularity without significant stenosis Right posterior tibial artery: Luminal irregularity without significant Right peroneal artery: Luminal irregularity without significantLeft common iliac artery: Luminal irregularity without significant Left external iliac artery: Luminal irregularity without significant Left internal iliac artery: Luminal irregularity without significant Left common femoral artery: Luminal irregularity without significant Left profundofemoral artery: Luminal irregularity without significant Left SFA artery: High-grade eccentric small mid SFA stenosis which is the culprit segment Left popliteal artery: Luminal irregularity without significant stenosis Left tibioperoneal artery: Luminal irregularity without significant stenosis Left anterior tibial artery: Luminal irregularity without significant stenosis Left posterior tibial artery: Luminal irregularity without significant Left peroneal artery: Luminal irregularity without significant stenosis. Right Proximal Superficial Femoral Artery: Moderate 70% stenosis, ostial lesion. Right Proximal Superficial Femoral Artery: Moderate 70% stenosis. Right Mid-longitudinal Superficial Femoral Artery: Moderate 70% stenosis. Lower Extremity Interventional Findings Right Proximal Superficial Femoral Artery: 70% stenosis treated with AB [place] 35 OTW [id number]. Right Mid-longitudinal Superficial Femoral Artery: 70% stenosis treated with AB [place] 35 OTW [id number]. Conclusions was treated with a Balloon. was treated with a Balloon. There is significant right lower extremity disease. Right Proximal Superficial Femoral Artery was treated with Balloon. Right Mid-longitudinal Superficial Femoral Artery was treated with Balloon. Recommendations 1-Return to inpatient for close monitoring and routine cath care 2-Risk factor modification for secondary prevention 3-Statin and aspirin 81 mg life-long, if tolerated 4-Continue Plavix 75mg p.o. daily for at least three months. 5-Staged percutaneous angioplasty of the left high-grade mid stenosis for lifestyle limiting claudication most likely in 2 to 3 weeks 6-Follow up with Dr. Bach in four weeks and your primary care in 10 days. Pressures Phase:Rest AO : 180 / 67 ( 111 ) @ 12:43:00 PM 93 / 50 ( 68 ) @ 1:06:00 PM 127 / 54 ( 71 ) @ 1:06:00 PM 138 / 65 ( 80 ) @ 1:20:00 PM Hemodynamic Data Phase:Rest AO : 180.0 / 67.0 ( 111.0 ) @ 12:43:00 PM 93.0 / 50.0 ( 68.0 ) @ 1:06:00 PM 127.0 / 54.0 ( 71.0 ) @ 1:06:00 PM 138.0 / 65.0 ( 80.0 ) @ 1:20:00 PM Clinical Evaluation EBL: 5mL-10mL Procedural Details Procedure Consent Obtained. Admit Source: Out Patient. Pre-Procedure Time Out. Identified patient by full name and date of as verbalized by the patient/guarantor. Does the consent match the physician's order: Yes. Accurate & Complete Informed Consent: Yes. Inpatient/Outpatient History & Physical on Chart: Yes. If H&P is completed, is and addenduem needed: No; If yes, is the addendum complete: N/A. Visualize and Verify Site with Patient/Guarantor: N/A. Relevant Radiology Images available: Yes. The risks, benefits, and alternatives of sedation and/or procedure were discussed by physician. The patient agrees to continue. Procedure started. Correct patient, site and procedure confirmed by cath team. PERRLA. Strong, equal hand acute care clinical nurse specialist bilaterally. Lungs clear x 5 lobes. IV Site on Arrival: 20 gauge in the right anticubital. IV Fluids: 0.9% NaCl at KVO. 600 mL infused prior to laborer bituminous paving. Current diagnosis: Lifestyle limiting claudication. Pre Procedural Pulses: bilateral radial was 2+. Pre Procedural Pulses: bilateral dorsalis pedis was Doppled. Pre Procedural Pulses: left posterior tibial was 2+. Pre Procedural Pulses: right posterior tibial was 1+. Oxygen started at 2liters/min via nasal canula. bilateral groins was prepped with chloroprep then draped in the usual sterile fashion. Physician notified. Baseline sample Acquired. HR: 77 BPM. Physician arrived. Physician scrubbed in. Time out performed with cath team. Lidocaine 1% infiltrated to the left groin. Arterial access obtained with micropuncture set. Wire and needle out. Holding manual pressure to stop bleeding. Arterial access obtained with micropuncture set. A 5Fr UF catheter in over wire. Abdominal aortogram performed in AP @ 10 mL/sec for a total of 30 mL. Glidewire in through UF catheter. Glidewire and UF catheter advanced to right femoral artery. Glidewire out. Right common femoral selected and arteriogram with runoff performed @ 10 mL/sec for a total of 30 mL. Glidewire in through catheter. UF catheter removed over glidewire. 6fr short sheath exchanged for 6fr 45cm flexor sheath over glidewire. Balloon inserted over the wire to the mid superficial femoral. Inflation number : 1 A AB [place] 35 OTW [id number] was prepped and advanced across the Mid Superficial Femoral, Right , then inflated to 2 MARIA E for 0:22 seconds. Inflation number: 2 The AB [place] 35 OTW [id number] was reinflated across the Mid Superficial Femoral, Right, to 6 MARIA E for 2:00 seconds. Balloon out over wire. Right common iliac selected and arteriogram performed. DSA imaging performed to better visualize iliac. Balloon inserted over the wire to the proximal right superficial femoral. Inflation number: 1 The AB [place] 35 OTW [id number] was reinflated across the Proximal Superficial Femoral, Right, to 6 MARIA E for 2:01 seconds. Inflation number: 2 The AB [place] 35 OTW [id number] was reinflated across the Proximal Superficial Femoral, Right, to 6 MARIA E for 2:00 seconds. Balloon out. ACT drawn. Results 332 seconds. Therapeutic limits - pre-heparin administration 90-150 seconds and monitoring heparin during a vascular procedure >250 seconds. Right common iliac selected and arteriogram with runoff performed @ 10 mL/sec for a total of 30 mL. 6fr 45cm flexor exchanged for new 6fr 11cm sheath over glidewire. Wire out. Sheath injected in Left common femoral artery and runoff performed. A Suture was successful obtaining hemostatsis at the Left Femoral artery insertion site. Sheath(s) sutured into position with 2-0 silk and sterile 4x4's and Op-site applied over the site. No oozing or signs and symptoms of hematoma noted. Arterial sheath flushed and connected to tranducer and pressure bag with heparinized saline. Post Procedure: Pulses reassessed and unchanged. PERRLA. Strong, equal hand acute care clinical nurse specialist bilaterally. No VTE prophylaxis required. Medication's Wasted: Lidocaine 1% = 10 mL. Medication's Wasted: Nitro = 49.2 mg. Medication's Wasted: Heparin = 1000 units. Medication's Wasted: Other = Fentanyl 75mcg, Versed 1 mg. Total IV fluids: 60 mL. Post-op diagnosis: Severe prox and mid SFA stenosis. Status post balloon angioplasty. Complications: None. Estimated blood loss: 5mL-10mL. Responsiveness - Normal response to verbal stimuli; alert and oriented, PERRLA. Airway - Unaffected, no intervention required; spontaneous ventilation. Circulation: W/N/L, pulses unchanged. Nausea/Vomiting: No. Procedure completed. Patient transferred by stretcher to CPRU. Vital chart was stopped. Access Site Site: Left Femoral artery Sheath Size: 6 Fr Hemostasis Method: Suture Hemostasis Success: Successful Procedure Medications Start: 11:15 AM Stop: 11:15 AM Medication: Benadryl Amount: 25 mg Route: I.V. Start: 11:15 AM Stop: 11:15 AM Medication: Versed Amount: 1 mg Route: I.V. Start: 11:15 AM Stop: 11:15 AM Medication: Fentanyl Amount: 50 mcg Route: I.V. Start: 11:32 AM Stop: 11:32 AM Medication: Fentanyl Amount: 25 mcg Route: I.V. Start: 11:48 AM Stop: 11:48 AM Medication: Fentanyl Amount: 25 mcg Route: I.V. Start: 11:55 AM Stop: 11:55 AM Medication: Heparin Amount: 8000 units Route: I.V. Start: 12:04 PM Stop: 12:04 PM Medication: Nitrogylcerin Amount: 400 mcg Route: I.A. Start: 12:06 PM Stop: 12:06 PM Medication: Fentanyl Amount: 25 mcg Route: I.V. Start: 12:20 PM Stop: 12:20 PM Medication: Nitrogylcerin Amount: 400 mcg Route: I.A. Start: 12:28 PM Stop: 12:28 PM Medication: Brilinta Amount: 180 mg Route: P.O. I, the attending physician, have reviewed and verified all procedure medications. Yes, all medications given per verbal order History/Risk Factors Hypertension: Yes Dyslipidemia: Yes Peripheral Arterial Disease (PAD): Yes Myocardial Infarction (IA): No Obesity: Yes Renal Disease: No Tobacco Use: Current/Recent(w/in 1 year) Prior Interventions PCI: Yes CABG: No Valve Surgery: No Date of PCI: 05/10/2024 Report Signatures Finalized by Monse Bach MD on 01/22/2025 10:16 PM
[2025-01-09] MEDS: sodium chloride 0.9% 250 ML 999 ML IV (06:44)
[2025-01-09] MEDS: sodium chloride 0.9% 1,000 ML 100 ML IV (06:45)
[2025-01-09] MEDS: aspirin 325 mg Tablet PO (06:45)
[2025-01-09 06:53] LABS: Basophils % 0.2 %; Eosinophils # 0.2 10^3/uL (0.0-0.8); Eosinophils % 1.2 %; Hematocrit 32.9 % (37-53); Lymphocytes # 6.4 10^3/uL (0.8-4.8); Lymphocytes % 46.5 %; Mean Corpuscular HGB Conc 29.5 g/dL (30-55); Mean Corpuscular Hemoglobin 26.6 pg (27-33); Mean Corpuscular Volume 90.1 fl (82-101); Mean Platelet Volume 9.9 fL (7.4-10.4); Monocytes % 6.9 %; Neutrophils # 6.15 10^3/uL (1.8-7.7); Neutrophils % 44.8 %; Nucleated Red Blood Cells % 0 %; Platelet Count 145 10^3/cmm (157-399); Red Blood Count 3.65 10^6/uL (3.85-5.65); Red Cell Distribution Width 17.2 % (12.1-15.1); White Blood Count 13.75 10^3/uL (3.29-11.43)
[2025-01-09 06:59] LABS: Anion Gap 15.3 (5-19); Blood Urea Nitrogen 35 mg/dL (8-23); Calcium 10.1 mg/dL (8.5-10.5); Carbon Dioxide 21 mmol/L (22-29); Chloride 110 mmol/L (98-107); Creatinine Clr Calc Pharmacy 37.1599; Glucose 128 mg/dL (65-115); Osmolality Calculated 304 mOsm/kg (285-295); Potassium 4.3 mmol/L (3.5-5.1); Sodium 142 mmol/L (136-145)
--- NOTE | 2025-01-09 11:15 | P.HPUD_ITS ---
Surgery/Procedure H&P Update DATE OF PROCEDURE: January 09, 2025 DATE H&P PERFORMED: 12/26/24 H&P UPDATE INFORMATION: I have reviewed H&P completed within last 30 days, I have examined patient prior to procedure and No changes to prior documentation PREOP DIAGNOSIS: Lifestyle limiting claudication, severe PAD PRIMARY INDICATION FOR PROCEDURE: 84-year-old male past medical history significant for coronary disease hy pertension hyperlipidemia history of smoking continues to worsen in both leg pain more on right and left now to the extent patient cannot walk 100 feet he has to sit down he cannot take care of his daily chores, he absolutely think that this is not a quality of life, patient has underlying chronic kidney disease with baseline creatinine around 1.7. Patient understand risk for contrast-induced nephropathy. He will be pre and post hydrated. It is the reason he is here for peripheral angiogram and percutaneous intervention if indicated. PLANNED PROCEDURE: Operation Date: 01/09/25 10:00 Proposed Procedures p Peripheral Diagnostic - Periph Angio Bilat(Bilateral) - Monse Bach MD PATIENT REASSESSED PRIOR TO SEDATION, WITH NO CHANGE NOTED: Yes PHYSICAL EXAM: alert, oriented x 3, clear to auscultation bilaterally, regular rate & rhythm and operative site marked OTHER PERTINENT EXAM FINDINGS: Patient has been explained all risk-benefit and alternative for the procedure. Patient understand 2% risk of stroke major bleed, patient understand 6 to 10% risk of contrast-induced nephropathy, patient understands 68% risk of urgent emergent vascular surgery amputation and acute limb ischemia. He would like to proceed with that with AIRWAY EVAL/ANESTHESIA PLAN: ASA II, Risks, benefits & alternatives of sedation and/or procedure discussed and Patient agrees to continue as planned
--- NOTE | 2025-01-09 12:37 | PM.PROC ---
Procedure Note: Date of procedure: 01/09/25 Pre-procedure diagnosis: Lifestyle-limiting claudication of both legs more right than left Procedure: Peripheral angiogram was performed which noted to have high-grade proximal SFA and mid napkin ring type lesions both were treated with balloon angioplasty with excellent angiographic result. Patient was also noted to have mid left SFA eccentric high-grade stenosis, we will bring him back for left SFA balloon angioplasty in 1 month. Plan: Due to underlying chronic kidney disease we will continue IV fluid 100 mL/h for next 24 hours. Resume Brilinta and aspirin today Resume Plavix from tomorrow Once ACT less than once 60 or PTT less than 45 left sheath will be pulled out, patient will have bedrest for 5 hours after that Full report to follow Coding Level of Care Code Acute Code for 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
--- NOTE | 2025-01-09 14:45 | PC.NURSE ---
Dr. Bach notified about sheath removal. Verbal orders received to draw ACT. ACT Result 213.
[2025-01-09] MEDS: hyDRALAzine 20 mg/mL INJ 1 mL 10 MG IVP (16:01)
[2025-01-09] MEDS: FUROsemide 10 mg/mL SDV 4mL 40 MG IVP (16:35)
[2025-01-09] MEDS: fentaNYL 50 mcg/mL INJ 2mL IVP (18:56)
--- NOTE | 2025-01-09 18:58 | PC.NURSE ---
Dr. Bach placed mynx closure device to left groin at bedside . Patient premedicated with 50mcg Fentanyl IVP as ordered by Dr. Bach. Remaining 50mcg fentanyl wasted with Marce Antoine RN. Site asymptomatic, sterile 4X4 gauze and tegaderm placed to site.
[2025-01-10 00:10] VITALS: BP 113/66; PULSE 75; RESP 14; TEMP 36.7; O2SAT 95
[2025-01-10 03:13] LABS: Basophils % 0.2 %; Eosinophils # 0.1 10^3/uL (0.0-0.8); Eosinophils % 0.6 %; Hematocrit 34.9 % (37-53); Lymphocytes # 5.2 10^3/uL (0.8-4.8); Lymphocytes % 37.6 %; Mean Corpuscular HGB Conc 30.1 g/dL (30-55); Mean Corpuscular Hemoglobin 25.9 pg (27-33); Mean Platelet Volume 10.2 fL (7.4-10.4); Monocytes % 7.5 %; Neutrophils # 7.37 10^3/uL (1.8-7.7); Neutrophils % 53.5 %; Nucleated Red Blood Cells % 0 %; Platelet Count 154 10^3/cmm (157-399); Red Blood Count 4.06 10^6/uL (3.85-5.65); Red Cell Distribution Width 17.2 % (12.1-15.1); White Blood Count 13.78 10^3/uL (3.29-11.43)
[2025-01-10 03:35] LABS: Anion Gap 16.8 (5-19); Blood Urea Nitrogen 30 mg/dL (8-23); Calcium 10.3 mg/dL (8.5-10.5); Carbon Dioxide 21 mmol/L (22-29); Chloride 107 mmol/L (98-107); Creatinine Clr Calc Pharmacy 39.4824; Glucose 123 mg/dL (65-115); Osmolality Calculated 300 mOsm/kg (285-295); Potassium 3.8 mmol/L (3.5-5.1); Sodium 141 mmol/L (136-145)
[2025-01-10 04:29] VITALS: BP 118/77; PULSE 76; RESP 12; TEMP 36.4; O2SAT 94
[2025-01-10 05:28] VITALS: PULSE 69
[2025-01-10 08:00] VITALS: BP 174/77; PULSE 89; RESP 18; TEMP 36.4; O2SAT 95
--- NOTE | 2025-01-10 14:15 | P.DS_ITS ---
<Statement entered by Monse Bach MD - 01/15/25 11:28> Patient was evaluated and cared for in conjunction with an advanced practice practitioner. I personally examined the patient and reviewed the chart and all pertinent data including imaging, telemetry, and laboratory results. I discussed the patient in detail with the advanced practice practitioner. Please see their note for complete H&P testing result and agreed upon plan of care for the patient. Discharge Providers Date of Admission: 01/09/25 Date of Discharge: January 10, 2025 Attending Provider at Admission: Monse Bach MD Attending Provider at Discharge: Monse Bach MD Primary Care Provider: Betty Mchugh Reason for Visit Reason for Visit: I73.9 Brief History: The patient is an 84-year-old male presenting with ongoing management of multiple cardiovascular conditions. He experiences significant claudication symptoms, including severe leg pain and cramping upon walking, particularly affecting both legs. The symptoms mandate frequent rest periods and result in considerable lifestyle disruption. Although a previous ultrasound did not show significant abnormalities, his current symptomatic presentation aligns with progressive peripheral vascular disease. Additional leg x-rays have been performed, but no recent arterial studies are recalled. Complicated by his renal status, careful consideration for diagnostic and interventional planning is necessary. He came in for scheduled peripheral angiogram. Hospital Course Hospital Course He underewent peripheral angiogram was performed which noted to have high-grade proximal SFA and mid napkin ring type lesions both were treated with balloon angioplasty with excellent angiographic result. Patient was also noted to have mid left SFA eccentric high-grade stenosis, we will bring him back for left SFA balloon angioplasty in 1 month.Due to underlying chronic kidney disease we will continue IV fluid 100 mL/h for next 24 hours. Resume Brilinta and aspirin today Once ACT less than once 60 or PTT less than 45 left sheath was pulled, patient had bedrest for 5 hours after that. He tolerated procedure well w/o complications. He was discharged in stable to improved condition. Physical Exam Narrative: General: No apparent distress, healthy appearing, well nourished HENMT: normoceophalic Neck: No carotid bruit bilaterally Muskuloskeletal: Full ROM Respiratory: Normal respiratory effort, clear to auscultation bilaterally throughout all lung storey, no use of accessory muscles Cardio: No JVD, regular rate, regular rhythm, S1 S2 normal, no murmurs, peripheral pulses 2+ radial palpated bilaterally, 2+ PT on the left no DP, on the right had 2+ PT and 2+ DP Extremities: Full ROM, normal, normal capillary refill, no cyanosis or edema Neuro: Alert and oriented x4, no focal motor deficits Psych: Affect normal, denies suicidal ideation, mental status grossly normal Skin: right fem cath site clean, dry, intact w/o s/s of hematoma Discharge Data Studies Completed and Pending Pending at discharge Category Date Time Status 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 request 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 service Routine Exams 01/09/25 06:00 Taken Laboratory Results WBC 13.78 10^3/uL (3.29-11.43) H 01/10/25 02:42 RBC 4.06 10^6/uL (3.85-5.65) 01/10/25 02:42 Hgb 10.50 g/dL (11.27-16.99) L 01/10/25 02:42 Hct 34.9 % (37-53) L 01/10/25 02:42 MCV 86.0 fl (82-101) 01/10/25 02:42 MCH 25.9 pg (27-33) L 01/10/25 02:42 MCHC 30.1 g/dL (30-55) 01/10/25 02:42 RDW 17.2 % (12.1-15.1) H 01/10/25 02:42 Plt Count 154 10^3/cmm (157-399) L 01/10/25 02:42 MPV 10.2 fL (7.4-10.4) 01/10/25 02:42 Neut % (Auto) 53.5 % 01/10/25 02:42 Lymph % (Auto) 37.6 % 01/10/25 02:42 [place] % (Auto) 7.5 % 01/10/25 02:42 Eos % (Auto) 0.6 % 01/10/25 02:42 Baso % (Auto) 0.2 % 01/10/25 02:42 Neut # (Auto) 7.37 10^3/uL (1.8-7.7) 01/10/25 02:42 Lymph # (Auto) 5.2 10^3/uL (0.8-4.8) H 01/10/25 02:42 [place] # (Auto) 1.0 10^3/uL (0.2-0.9) H 01/10/25 02:42 Eos # (Auto) 0.1 10^3/uL (0.0-0.8) 01/10/25 02:42 Baso # (Auto) 0.0 10^3/uL (0.0-0.1) 01/10/25 02:42 Nucleated RBC % (auto) 0 % 01/10/25 02:42 Nucleated RBCs # 0.0 /100WBC 01/10/25 02:42 Sodium 141 mmol/L (136-145) 01/10/25 02:42 Potassium 3.8 mmol/L (3.5-5.1) 01/10/25 02:42 Chloride 107 mmol/L (98-107) 01/10/25 02:42 Carbon Dioxide 21 mmol/L (22-29) L 01/10/25 02:42 Anion Gap 16.8 (5-19) 01/10/25 02:42 BUN 30 mg/dL (8-23) H 01/10/25 02:42 Creatinine 1.6 mg/dL (0.7-1.2) H 01/10/25 02:42 GFR Calculation Not Reportable 01/10/25 02:42 Glucose 123 mg/dL (65-115) H 01/10/25 02:42 Calculated Osmolality 300 mOsm/kg (285-295) H 01/10/25 02:42 Calcium 10.3 mg/dL (8.5-10.5) 01/10/25 02:42 Procedures Performed Date of procedure: 01/09/25 Pre-procedure diagnosis: Lifestyle-limiting claudication of both legs more right than left Procedure: Peripheral angiogram was performed which noted to have high-grade proximal SFA and mid napkin ring type lesions both were treated with balloon angioplasty with excellent angiographic result. Patient was also noted to have mid left SFA eccentric high-grade stenosis, we will bring him back for left SFA balloon angioplasty in 1 month. Plan: Due to underlying chronic kidney disease we will continue IV fluid 100 mL/h for next 24 hours. Resume Brilinta and aspirin today Resume Plavix from tomorrow Once ACT less than once 60 or PTT less than 45 left sheath will be pulled out, patient will have bedrest for 5 hours after that Vitals Last Vital Signs Temp 97.5 F L 01/10/25 08:00 Pulse 89 01/10/25 08:00 Resp 18 01/10/25 08:00 BP 174/77 01/10/25 08:00 Pulse Ox 95 01/10/25 08:00 O2 Del Method Room Air 01/10/25 08:00 Discharge Plan Discharge Patient Disposition: Home Prescriptions: Continued albuterol sulfate 90 mcg/actuation HFA aerosol inhaler 2 puff INHALATION Q6H PRN (Reason: Wheezing) ranolazine 500 mg tablet extended release 12 hr 500 mg PO BID omega 0-xqh-hby-fish oil 300-1,000 mg capsule 1 cap PO QPM pravastatin 80 mg tablet 40 mg PO DAILY nitroglycerin [Nitrostat] 0.4 mg tablet, sublingual 0.4 mg sublingual Q5M PRN (Reason: chest pain) Qty: 30 3RF furosemide [Lasix] 40 mg tablet 20 mg PO DAILY PRN (Reason: edema) Rx Instructions: 1 tab daily X 7 days potassium chloride 8 mEq capsule, extended release 20 meq PO DAILY Rx Instructions: Take with lasix aspirin [Adult Aspirin Regimen] 81 mg tablet,delayed release (DR/EC) 81 mg PO DAILY methocarbamol 750 mg tablet 1,500 mg PO QID PRN (Reason: Muscle Spasm) gabapentin 100 mg capsule 200 mg PO TID acetaminophen 500 mg capsule 500 mg PO Q6H PRN (Reason: Pain) cinacalcet 30 mg tablet 30 mg PO DAILY pantoprazole 20 mg tablet,delayed release (DR/EC) 20 mg PO DAILY ticagrelor 90 mg tablet 90 mg PO BID Qty: 180 3RF (DME) Orthopedic shoes with custom soles supports See Rx Instructions .Route .MEDSUPPLY Qty: 1 0RF Rx Instructions: As directed J P [facility] O Eliquis 5 mg Tablet 5 mg PO BID empagliflozin 25 mg Tablet 12.5 mg PO DAILY guaifenesin [Mucinex] 600 mg Tablet Extended Release 12hr 1,200 mg PO BID Qty: 30 0RF Discharge Orders: Discharge Order (Routine); Ordered 01/10/25 Ordered By: Alysia Day Referrals: Magdalene Rizvi APRN [Referring] - 01/11/25 9:30 Alysia Membreno NP [Nurse Practitioner] - 01/18/25 2:30 pm Diet: Cardiac Activity: Limit activity as instructed Patient Instructions: Heart Healthy Diet (DC), Peripheral Vascular Stent Placement (DC), Peripheral Vascular Angioplasty (DC), Post Angiogram Home Care Instructions Activity Restrictions/Additional Instructions: Discussed with patient no heavy lifting more than a gallon of milk as well as going up or down steps for 3 days. No driving for 3 days. Monitor for and report signs or symptoms of bleeding. Monitor for and report s/s of infection such as fever 101 or greater, swelling, redness or pain to the groin. Patient was also noted to have mid left SFA eccentric high-grade stenosis, we will bring him back for left SFA balloon angioplasty in 1 month. Continue Eliquis and Plavix. Stop aspirin. F/U in clinic in 1 week. Print Language: Japanese Discharge Date/Time: 01/10/25 10:30 Discharge Attestations Time Spent in Discharge Care*: less than 30 min Quality Metrics Clinical Quality Measures [ No reported AMI, CVA or VTE this stay] Coding Level of Care Code Acute Code for Chg Chai
== END 2025-01-10 10:30 | disposition home or self-care (01) ==
LOC: CCL 06:01 → CSU 01-10 07:37
PROVIDERS: PCP Nurse Practitioner Family; Visit Provider Internal Medicine Cardiovascular Disease
DX: I70.213 Atherosclerosis of native arteries of extremities with intermittent claudication, bilateral legs (principal); Z79.82 Long term (current) use of aspirin; Z79.01 Long term (current) use of anticoagulants; K21.9 Gastro-esophageal reflux disease without esophagitis; E78.5 Hyperlipidemia, unspecified; E66.9 Obesity, unspecified; Z68.29 Body mass index [BMI] 29.0-29.9, adult; F17.210 Nicotine dependence, cigarettes, uncomplicated; E11.22 Type 2 diabetes mellitus with diabetic chronic kidney disease; I12.9 Hypertensive chronic kidney disease with stage 1 through stage 4 chronic kidney disease, or unspecified chronic kidney disease; N18.9 Chronic kidney disease, unspecified; J44.9 Chronic obstructive pulmonary disease, unspecified; I48.91 Unspecified atrial fibrillation
CPT/HCPCS: 36415; 37224; 75625; 75716; 80048; 85025; 85347; 96360; 96361; 96374; 96375; 96376; 99152; 99153; C1725; C1769; C1887; C1894; J0360; J1200; J1644; J1940; J2250; J3010; J3490; J7030; J9999; Q0163; Q9967

== ENCOUNTER → 2025-01-20 09:18 | Outpatient (BNVA) | payer OTHER, SELFPAY | PROVIDERS: PCP Nurse Practitioner Family; Visit Provider Internal Medicine Cardiovascular Disease | DX: I73.9 Peripheral vascular disease, unspecified (principal); N18.30 Chronic kidney disease, stage 3 unspecified; Z79.01 Long term (current) use of anticoagulants; Z95.5 Presence of coronary angioplasty implant and graft; F17.210 Nicotine dependence, cigarettes, uncomplicated; I70.222 Atherosclerosis of native arteries of extremities with rest pain, left leg | CPT/HCPCS: 99214 ==

== ENCOUNTER 2025-02-03 05:47 | Outpatient (CLI) | payer OTHER, SELFPAY ==
[2025-02-03] VITALS (26 sets, daily range): BP systolic 102–172; BP diastolic 33–94; PULSE 64–85; RESP 11–18; TEMP 36.6; O2SAT 88–99; BMI 29.2
--- NOTE | 2025-02-03 06:00 | XACV_ITS ---
Ht: 175 cm Wt: 90 kg BSA: 2.11 m2 Any Known Allergies: No known allergies Gender: Male : 1940 Exam Type: Invasive Peripheral Vascular Procedure(s): Procedure Description: Peripheral Cath Diagnostic Procedure Procedure Description: Lower extremities' angiography Procedure Description: Peripheral vascular Intervention Procedure Description: PV Balloon Exam Priority: Routine [facility], Bach; Lower Extremity Diagnostic Findings Indication for peripheral angiogram: Lifestyle limiting claudication of the left leg despite optimization of medicine with Catheters used: Rim catheter was used, long 6 [place] destination sheath was used Left SFA: Mid high-grade tandem lesion which is the culprit Left popliteal artery: Mid high-grade significant stenosis Left tibioperoneal trunk: Luminal irregularity with distal moderate stenosis Left anterior tibial artery: 100% chronically occluded in the proximal segment Left posterior tibial artery: Patent Left peroneal artery: PatentUsing 6 [place] short sheath right leg peripheral angiogram was performed Right common iliac artery: No significant stenosis Right external iliac artery: Patent Right internal iliac artery: Patent Right t common femoral artery: Patent Right profundofemoral artery: Patent Right SFA artery: Patent with luminal irregularity Right popliteal artery: Patent Right tibioperoneal artery: Patent Right anterior tibial artery: Patent Right posterior tibial artery: Patent Right peroneal artery: Patent. Left Mid-longitudinal Superficial Femoral Artery: 70% stenosis. Left Mid-longitudinal Popliteal Artery: 70% stenosis. Lower Extremity Interventional Findings Balloon angioplasty of left popliteal artery: Balloon angioplasty of the left popliteal artery was performed using [place] AB 35 OTW 5 x 40 x 135 millimeter inflated for 2 mmBalloon angioplasty of left mid SFA : Balloon angioplasty of the left mid SFA was performed using [place] AB 35 OTW 5 x 40 x 135 millimeter inflated for 2 mm Excellent angiographic result with good flow was noted. Left Mid-longitudinal Superficial Femoral Artery: 70% stenosis treated with AB ARMADA 35 OTW [id number] and lutonix 035 6x 100. Left Mid-longitudinal Popliteal Artery: 70% stenosis treated with AB ARMADA 35 OTW [id number]. Conclusions There is severe left lower extremity disease. Left Mid-longitudinal Superficial Femoral Artery was treated with two Balloon. Left Mid-longitudinal Popliteal Artery was treated with Balloon. Recommendations 1-Return to inpatient for close monitoring and routine cath care 2-Risk factor modification for secondary prevention 3-Statin and aspirin 81 mg life-long, if tolerated 4-Patient was pre-loaded with 300 mg of Plavix, continue Plavix 75mg p.o. daily for at least one year. We will assess at the end of one year again to continue if further or not 5-Continue optimal medical management 6-Follow up with Dr. Bach in four weeks and your primary care in 10 days . Hemodynamic Data Phase:Rest AO : 104.0 / 54.0 ( 75.0 ) @ 8:52:00 AM 124.0 / 43.0 ( 73.0 ) @ 9:20:00 AM Access Site Site: Right Femoral artery Sheath Size: 6 Fr Hemost... Method: Angio-Seal VIP ([facility]) Hemost... Success: Successful Procedure Details Findings Procedure Consent Obtained. Pre-Procedure Time Out. Identified patient by full name and date of as verbalized by the patient/guarantor. Does the consent match the physician's order: Yes. Accurate & Complete Informed Consent: Yes. Inpatient/Outpatient History & Physical on Chart: Yes. If H&P is completed, is and addenduem needed: No; If yes, is the addendum complete: N/A. Visualize and Verify Site with Patient/Guarantor: N/A. Relevant Radiology Images available: N/A. Pre-op teaching completed and patient verbalized understanding. The risks, benefits, and alternatives of sedation and/or procedure were discussed by physician. The patient agrees to continue. Procedure started. Correct patient, site and procedure confirmed by cath team. PERRLA. Strong, equal hand nickel plater bilaterally. Lungs clear x 5 lobes. IV Site on Arrival: 20 gauge in the left anticubital. Physician arrived. IV Fluids: 0.9% NaCl at KVO. 250 mL infused prior to laboratory specialist. Pre Procedural Pulses: right dorsalis pedis was Doppled. Pre Procedural Pulses: left dorsalis pedis was 2+. Pre Procedural Pulses: right posterior tibial was 1+. Pre Procedural Pulses: left posterior tibial was 2+. Oxygen started at 2liters/min via nasal canula. bilateral groins was prepped with chloroprep then draped in the usual sterile fashion. Baseline sample Acquired. HR: 86 BPM. Physician scrubbed in. Immediate Pre-Procedure Time Out. Correct Patient: Yes; Correct Procedure: Yes; Correct Site: Yes; Correct Patient Position: Yes; Correct Supplies: Yes; Dried Flammable Prep: Yes; Blood Products Available: N/A;. Lidocaine 1% infiltrated to the right groin. Arterial access obtained with micropuncture set. Lidocaine 1% infiltrated to the right groin. Equipment: Peripheral. Cardiac Cath Pack. ACIST Manifold Kit Model BT 2000. Heparinized Saline (2 units/mL), 1000 mL bag. A JJ 5F RIM 65 cm Diagnostic Catheter was advanced over the wire and used to advance glidewire into LSFA. RIM catheter removed. Short 6 fr sheath exchanged for long 6 fr 45 cm sheath. Left leg runoff 10 ml for total of 30 ml through sheath. Inflation number : 1 A AB ARMADA 35 OTW [id number] was prepped and advanced across the Popliteal, Left1 , then inflated to 8 MARIA E for 2:01 seconds. Inflation number: 1 The AB ARMADA 35 OTW [id number] was reinflated across the Superficial Femoral, Left, to 12 MARIA E for 2:02 seconds. Inflation number: 2 The AB ARMADA 35 OTW [id number] was reinflated across the Superficial Femoral, Left, to 12 MARIA E for 2:01 seconds. Inflation number: 3 The AB ARMADA 35 OTW [id number] was reinflated across the Superficial Femoral, Left, to 12 MARIA E for 2:00 seconds. Inflation number: 4 The AB ARMADA 35 OTW [id number] was reinflated across the Superficial Femoral, Left, to 12 MARIA E for 2:01 seconds. Balloon out over wire. Inflation number : 5 A lutonix 035 6x 100 was prepped and advanced across the Superficial Femoral, Left , then inflated to 7 MARIA E for 2:00 seconds. Balloon out. ACT drawn. Results 255 seconds. Therapeutic limits - pre-heparin administration 90-150 seconds and monitoring heparin during a vascular procedure >250 seconds. Results checked. Left superficial femoral selected and arteriogram performed. Long 6 fr sheath exchanged for short 6 fr sheath. Right leg runoff through sheath 10 ml for total of 30 ml. Angioseal placed without complications. No signs or symptoms of hematoma noted. Sterile dressing applied per usual sterile fashion. A Angio-Seal VIP ([facility]) was successful obtaining hemostatsis at the Right Femoral artery insertion site. Post Procedure: Pulses reassessed and unchanged. PERRLA. Strong, equal hand nickel plater bilaterally. No VTE prophylaxis required. Medication's Wasted: Lidocaine 1% = 10 mL. Medication's Wasted: Nitro = 49.6 mg. Medication's Wasted: Heparin = 1000 units. Medication's Wasted: Other = morphine 2 mg. Total IV fluids: 100 mL. Contrast type used: Visipaque 320 mgI/mL, 500 mL bottle. Complications: none. Estimated blood loss: 5mL-10mL. Responsiveness - Normal response to verbal stimuli; alert and oriented, PERRLA. Airway - Unaffected, no intervention required; spontaneous ventilation. Circulation: W/N/L, pulses unchanged. Nausea/Vomiting: No. Post-op diagnosis: PAD, s/p balloon angioplasty mid l SFA. Procedure completed. Patient transferred by bed to ICU. Vital chart was stopped. Procedure Medications Start: 7:32 AM Stop: 7:32 AM Medication: Fentanyl Amount: 50 mcg Route: I.V. Start: 7:32 AM Stop: 7:32 AM Medication: Versed Amount: 1 mg Route: I.V. Start: 7:33 AM Stop: 7:33 AM Medication: Brilinta Amount: 90 mg Route: P.O. Start: 7:42 AM Stop: 7:42 AM Medication: Versed Amount: 1 mg Route: I.V. Start: 7:42 AM Stop: 7:42 AM Medication: Fentanyl Amount: 50 mcg Route: I.V. Start: 7:50 AM Stop: 7:50 AM Medication: Versed Amount: 1 mg Route: I.V. Start: 7:51 AM Stop: 7:51 AM Medication: Heparin Amount: 5000 units Route: I.V. Start: 8:15 AM Stop: 8:15 AM Medication: Versed Amount: 1 mg Route: I.V. Start: 8:15 AM Stop: 8:15 AM Medication: Nitrogylcerin Amount: 400 mcg Route: I.A. I, the attending physician, have reviewed and verified all procedure medications. Yes, all medications given per verbal order History/Risk Factors Hypertension: Yes Dyslipidemia: Yes Peripheral Arterial Disease (PAD): Yes Obesity: No Renal Disease: No Tobacco Use: Current/Recent(w/in 1 year) Prior Interventions PCI: No CABG: No Valve Surgery: No Report Signatures Finalized by Monse Bach MD on 02/19/2025 10:47 PM
[2025-02-03 06:32] LABS: Mean Corpuscular HGB Conc 29.1 g/dL (30-55); Mean Corpuscular Hemoglobin 25.3 pg (27-33); Mean Corpuscular Volume 86.8 fl (82-101); Mean Platelet Volume 10.3 fL (7.4-10.4); Platelet Count 192 10^3/cmm (157-399); Red Cell Distribution Width 17.2 % (12.1-15.1); White Blood Count 11.58 10^3/uL (3.29-11.43)
[2025-02-03 06:51] LABS: Anion Gap 16.1 (5-19); Blood Urea Nitrogen 33 mg/dL (8-23); Calcium 9.9 mg/dL (8.5-10.5); Carbon Dioxide 24 mmol/L (22-29); Chloride 106 mmol/L (98-107); Glucose 149 mg/dL (65-115); Osmolality Calculated 304 mOsm/kg (285-295); Potassium 4.1 mmol/L (3.5-5.1); Sodium 142 mmol/L (136-145)
[2025-02-03] MEDS: diphenhydrAMINE 50 mg Capsule PO (06:56)
[2025-02-03 07:17] LABS: Absolute Eosinophils 0.1 10^3/cmm (0.0-0.7); Absolute Neutrophil 5.1 10^3/cmm (1.4-6.5); Absolute Segmented Neutrophil 4.7 10/cmm (1.6-7.1); Band Neutrophils Absolute 0.3 10^3/cmm (0.0-1.2); Eosinophils 1 %; Lymphocytes 2 %; Lymphocytes Absolute 3.7 10^3/cmm (1.2-3.4); Platelet Estimate Decreased (Normal); Segmented Neutrophils 41 %; Slide Review Slide Review Perform; Total Cells Counted 100 (0-100)
--- NOTE | 2025-02-03 07:35 | W.PM.OPSUD ---
Surgery/Procedure H&P Update DATE OF PROCEDURE: February 03, 2025 DATE H&P PERFORMED: 01/20/25 H&P UPDATE INFORMATION: I have reviewed H&P completed within last 30 days, I have examined patient prior to procedure and No changes to prior documentation PREOP DIAGNOSIS: Lifestyle limiting claudication PRIMARY INDICATION FOR PROCEDURE: Severe peripheral arterial disease Lifestyle limiting claudication PLANNED PROCEDURE: Operation Date: 02/03/25 07:00 Proposed Procedures p Peripheral Diagnostic - Periph Angio Unil(Not Applicable) - Monse Bach MD PATIENT REASSESSED PRIOR TO SEDATION, WITH NO CHANGE NOTED: Yes PHYSICAL EXAM: alert, oriented x 3, clear to auscultation bilaterally and regular rate & rhythm AIRWAY EVAL/ANESTHESIA PLAN: ASA II, Risks, benefits & alternatives of sedation and/or procedure discussed and Patient agrees to continue as planned ADDITIONAL INFORMATION: Patient has been explained all risk-benefit and alternative for the procedure. Patient understand 2% risk of stroke major bleed. Patient understand 5% risk of infection hematoma pseudoaneurysm acute limb ischemia contrast-induced nephropathy amputation urgent emergent vascular injury PA. He understood and accepted it. He would like to proceed with it.
--- NOTE | 2025-02-03 08:38 | PM.PROC ---
Procedure Note: Pre-procedure diagnosis: Lifestyle-limiting claudication, PAD Post-procedure diagnosis: same Procedure: Peripheral angiogram, selective peripheral angiogram was performed of left lower limb Patient was noted to have mid SFA eccentric high-grade stenosis Patient was noted to have eccentric distal popliteal artery stenosis Percutaneous angioplasty of SFA and popliteal artery with 5.0 x 40 [place] balloon was performed Percutaneous angioplasty of mid SFA was performed with drug eluting balloon due to tonics 600 x 120 Good angiographic result with good flow was noted Right common femoral artery was Angio-Seal Plan: Continue Brilinta, today we will give aspirin from tomorrow no aspirin but will continue Brilinta 90 mg twice daily Will resume Eliquis tomorrow Continue 100 mL of normal saline fluid for abnormal creatinine/chronic kidney disease in order to prevent contrast induced nephropathy. We will infuse him 100 mL/h for next 10 hours Bedrest for 3 hours Full note to be dictated Resume home meds Coding Level of Care Code Acute Code for 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
[2025-02-03] MEDS: sodium chloride 0.9% 1,000 ML 100 ML IV (17:13)
[2025-02-03] MEDS: ticagrelor 90 mg Tablet PO (17:13)
--- NOTE | 2025-02-03 17:50 | PC.NURSE ---
Pt has been resting in bed this shift. Right groin site has dry dressing intact.
--- NOTE | 2025-02-03 21:21 | PC.NURSE ---
Refusal When attempting to check on patient, patient became agitated and stated that he wanted everyone to leave him alone. Patient stated, if you people don't leave me alone, I'm going to pack my bag and leave. They have left me alone today and I want you all out of my room. Education provided to patient regarding procedure today and monitoring recommended of vital signs, cath site, and kidney function. Patient then stated I understand all that, the doctor told me, but the doctor knows I don't want any of that. Patient refused all vital sign wires and stated he did not want any one to check on him for anything. Dr. Bach notified; verification received to let patient rest without interruptions this evening and attempt to get vital signs in the morning of 02/04/25.
--- NOTE | 2025-02-04 04:43 | PC.NURSE ---
Resting In the attempt to allow patient to rest as requested, patient viewed from doorway several times throughout shift. Patient noted to be resting with even respirations.
--- NOTE | 2025-02-04 09:05 | PC.NURSE ---
limited assessment done as pt allowed , am breakfast with good appitite vs check done up in room awaiting to go home
--- NOTE | 2025-02-04 09:40 | PM.DCS ---
Discharge Providers Date of Admission: 02/03/25 Date of Discharge: February 04, 2025 Attending Provider at Discharge: Monse Bach MD Primary Care Provider: Betty Mchugh Reason for Visit Reason for Visit: I73.9 Hospital Course Hospital Course 85-year-old male past medical history significant for coronary artery disease hypertension hyperlipidemia continuous tobacco abuse severe peripheral vascular disease for lifestyle-limiting claudication underwent peripheral angiogram noted to have mid high-grade SFA eccentric stenosis and distal left popliteal stenosis. Both lesions were treated with balloon angioplasty mild mid SFA lesion was additionally treated with drug-coated balloon. Excellent angiographic result with good flow was noted. Patient tolerated procedure well and was shifted back to [facility] in stable condition. Patient right common femoral artery was treated with Angio-Seal after pulling out the sheath. Patient remains very noncompliant and does not let nurses to take blood or vitals. He threatened to leave AMA. This morning I saw the patient advised him to be very compliant with medication he is on l antiplatelet therapy and Eliquis will continue. Advised quitting smoking patient did not answer me back Regarding men he would like to quit. He refused vital again however before discharge he was appeared to be stable with blood pressure 127/64 and pulse 84. He refused to draw the blood. Patient understood clearly that he can suffer from bleeding anemia and contrast-induced nephropathy leading to temporary permanent dialysis therefore we needed blood to check however he refused again. He would like to go home. Patient is being discharged home. Advised to keep watching any blood in urine and stool advised to quit smoking. He will be following up with us in cardiology clinic. Currently denies any complaint. Physical Exam Const: OTHER: GENERAL: Patient is alert, awake and oriented x3. HEART: Regular S1 and S2. No murmur, rub or gallop. LUNGS: Clear to auscultate bilaterally. CENTRAL NERVOUS SYSTEM: Grossly nonfocal. EXTREMITIES: Lower extremities with out edema bilaterally. Discharge Data Studies Completed and Pending Pending at discharge Category Date Time Status [employer] request for service Routine Exams 02/03/25 06:00 Taken Basic Metabolic Panel AM LABS Lab 02/04/25 04:00 Ordered Complete Blood Count w/Auto AM LABS Lab 02/04/25 04:00 Ordered Laboratory Results WBC 11.58 10^3/uL (3.29-11.43) H 02/03/25 06:20 RBC 3.80 10^6/uL (3.85-5.65) L 02/03/25 06:20 Hgb 9.60 g/dL (11.27-16.99) L 02/03/25 06:20 Hct 33.0 % (37-53) L 02/03/25 06:20 MCV 86.8 fl (82-101) 02/03/25 06:20 MCH 25.3 pg (27-33) L 02/03/25 06:20 MCHC 29.1 g/dL (30-55) L 02/03/25 06:20 RDW 17.2 % (12.1-15.1) H 02/03/25 06:20 Plt Count 192 10^3/cmm (157-399) 02/03/25 06:20 MPV 10.3 fL (7.4-10.4) 02/03/25 06:20 Lymph % (Auto) Not Reportable 02/03/25 06:20 [place] % (Auto) Not Reportable 02/03/25 06:20 Lymph # (Auto) Not Reportable 02/03/25 06:20 [place] # (Auto) Not Reportable 02/03/25 06:20 Total Counted 100 (0-100) 02/03/25 06:20 Atypical Lymphs % 30.0 % (0-5) H 02/03/25 06:20 Absolute Neutrophils 5.1 10^3/cmm (1.4-6.5) 02/03/25 06:20 Segmented Neutrophils 41 % 02/03/25 06:20 Band Neutrophils 3.0 % 02/03/25 06:20 Absolute Lymphocytes 3.7 10^3/cmm (1.2-3.4) H 02/03/25 06:20 Lymphocytes (Manual) 2 % 02/03/25 06:20 Monocytes (Manual) 0.0 % 02/03/25 06:20 Absolute Monocytes 0.0 10^3/cmm (0.1-0.6) L 02/03/25 06:20 Eosinophils (Manual) 1 % 02/03/25 06:20 Absolute Eosinophils 0.1 10^3/cmm (0.0-0.7) 02/03/25 06:20 Basophils (Manual) 0.0 % 02/03/25 06:20 Absolute Basophils 0.0 10^3/cmm (0.0-0.2) 02/03/25 06:20 Metamyelocytes 3.0 % 02/03/25 06:20 Platelet Estimate Decreased (Normal) 02/03/25 06:20 Sodium 142 mmol/L (136-145) 02/03/25 06:20 Potassium 4.1 mmol/L (3.5-5.1) 02/03/25 06:20 Chloride 106 mmol/L (98-107) 02/03/25 06:20 Carbon Dioxide 24 mmol/L (22-29) 02/03/25 06:20 Anion Gap 16.1 (5-19) 02/03/25 06:20 BUN 33 mg/dL (8-23) H 02/03/25 06:20 Creatinine 1.8 mg/dL (0.7-1.2) H 02/03/25 06:20 GFR Calculation Not Reportable 02/03/25 06:20 Glucose 149 mg/dL (65-115) H 02/03/25 06:20 Calculated Osmolality 304 mOsm/kg (285-295) H 02/03/25 06:20 Calcium 9.9 mg/dL (8.5-10.5) 02/03/25 06:20 Vitals Last Vital Signs Temp 97.8 F 02/03/25 20:16 Pulse 85 02/03/25 19:00 Resp 15 02/03/25 19:00 BP 157/94 02/03/25 20:16 Pulse Ox 99 02/03/25 20:16 O2 Del Method Room Air 02/03/25 20:16 Discharge Plan Discharge Patient Disposition: Home Prescriptions: New pantoprazole [Protonix] 40 mg tablet,delayed release (DR/EC) 40 mg PO DAILY 56 Days Qty: 90 2RF No Action albuterol sulfate 90 mcg/actuation HFA aerosol inhaler 2 puff INHALATION Q6H PRN (Reason: Wheezing) ranolazine 500 mg tablet extended release 12 hr 500 mg PO BID omega 8-izi-pye-fish oil 300-1,000 mg capsule 1 cap PO QPM pravastatin 80 mg tablet 40 mg PO DAILY nitroglycerin [Nitrostat] 0.4 mg tablet, sublingual 0.4 mg sublingual Q5M PRN (Reason: chest pain) Qty: 30 3RF furosemide [Lasix] 40 mg tablet 20 mg PO DAILY PRN (Reason: edema) Rx Instructions: 1 tab daily X 7 days potassium chloride 8 mEq capsule, extended release 20 meq PO DAILY Rx Instructions: Take with lasix acetaminophen 500 mg capsule 500 mg PO Q6H PRN (Reason: Pain) cinacalcet 30 mg tablet 30 mg PO DAILY pantoprazole 20 mg tablet,delayed release (DR/EC) 20 mg PO DAILY ticagrelor 90 mg tablet 90 mg PO BID Qty: 180 3RF (DME) Orthopedic shoes with custom soles supports See Rx Instructions .Route .MEDSUPPLY Qty: 1 0RF Rx Instructions: As directed J P & O Eliquis 5 mg Tablet 5 mg PO BID empagliflozin 25 mg Tablet 12.5 mg PO DAILY Discharge Orders: Discharge Order (Routine); Ordered 02/04/25 Ordered By: Monse Bach Referrals: Serena Miranda FNP [Nurse Practitioner, Cardiology] - 02/13/25 3:00 pm Referral Note: this is scheduled for this day, follow up ,from hospital admisson, post peripheral angiogram Diet: Cardiac Activity: Increase activity as tolerated Patient Instructions: Pantoprazole (By mouth) (Protonix), Peripheral Vascular Angioplasty (DC) Activity Restrictions/Additional Instructions: Patient has been advised not to lift anything heavier than a gallon of milk for next 2 to 3 days. Patient has been advised in case of hematoma swelling of the groin please let us know. Patient has been advised to quit smoking which she has not given me any answer. Advised to continue medications including Brilinta and Eliquis. Advised to watch for any bleeding per rectum or by mouth. Advised to follow-up with cardiology in 2 weeks. Please note that patient has refused blood draw and vitals. At 1 point he would like to leave AMA. Overall he is doing fine this morning and stable refused vitals again. Will discharge him to home. Print Language: B[place] Discharge Date/Time: 02/04/25 10:00 Discharge Attestations Time Spent in Discharge Care*: greater than 30 min Quality Metrics Clinical Quality Measures [ Venous Thromboembolism { Contraindication to Overlap Therapy: Drug intolerance; VTE Discharge Education: Education about anticoagulant therapy/Care Notes given;}. No reported AMI, CVA or VTE this stay] Coding Level of Care Code Acute Code for Chg Fwd Hypertension (Cardio) Most Recent Cardiac Tests: Chest X-Ray 04/14/23 Hyperlipidemia Most Recent Cardiac Tests: Chest X-Ray 04/14/23
[2025-02-04 09:55] VITALS: BP 127/64; PULSE 80; RESP 24; TEMP 36.4; O2SAT 98
[2025-02-04 09:57] VITALS: BP 127/64; PULSE 84; RESP 24; TEMP 36.4; O2SAT 98
== END 2025-02-04 10:00 | disposition home or self-care (01) ==
LOC: CCL 05:52 → ICU 08:47
PROVIDERS: PCP Nurse Practitioner Family; Visit Provider Internal Medicine Cardiovascular Disease
DX: I70.202 Unspecified atherosclerosis of native arteries of extremities, left leg (principal); I70.92 Chronic total occlusion of artery of the extremities; E78.5 Hyperlipidemia, unspecified; I25.10 Atherosclerotic heart disease of native coronary artery without angina pectoris; K21.9 Gastro-esophageal reflux disease without esophagitis; Z79.01 Long term (current) use of anticoagulants; J44.9 Chronic obstructive pulmonary disease, unspecified; E21.3 Hyperparathyroidism, unspecified; I48.91 Unspecified atrial fibrillation; D64.9 Anemia, unspecified; F17.210 Nicotine dependence, cigarettes, uncomplicated; I12.9 Hypertensive chronic kidney disease with stage 1 through stage 4 chronic kidney disease, or unspecified chronic kidney disease; N18.30 Chronic kidney disease, stage 3 unspecified
CPT/HCPCS: 36415; 37224; 75716; 80048; 85007; 85025; 85347; 96374; 99152; 99153; C1725; C1760; C1769; C1887; C1894; C2623; G0269; J1644; J2250; J2270; J3010; J3490; J7030; J9999; Q0163; Q9967

== ENCOUNTER → 2025-02-16 14:19 | Outpatient (BNVA) | payer OTHER, SELFPAY | PROVIDERS: PCP Nurse Practitioner Family; Visit Provider Nurse Practitioner Family | DX: I73.9 Peripheral vascular disease, unspecified (principal); I10 Essential (primary) hypertension; Z79.01 Long term (current) use of anticoagulants; Z95.5 Presence of coronary angioplasty implant and graft; F17.210 Nicotine dependence, cigarettes, uncomplicated | CPT/HCPCS: 36415; 80048; 99214 ==

== ENCOUNTER → 2025-03-21 10:12 | Outpatient (BNVA) | payer OTHER, SELFPAY | PROVIDERS: PCP Nurse Practitioner Family; Visit Provider Podiatrist Foot & Ankle Surgery | DX: E11.42 Type 2 diabetes mellitus with diabetic polyneuropathy (principal); L60.3 Nail dystrophy; L84 Corns and callosities; I73.9 Peripheral vascular disease, unspecified; N18.9 Chronic kidney disease, unspecified | CPT/HCPCS: 11056; 11721 ==

== ENCOUNTER → 2025-06-26 09:45 | Outpatient (BNVA) | payer OTHER, SELFPAY | PROVIDERS: PCP Nurse Practitioner Family; Visit Provider Podiatrist Foot & Ankle Surgery | DX: E11.8 Type 2 diabetes mellitus with unspecified complications (principal); L60.3 Nail dystrophy; I73.9 Peripheral vascular disease, unspecified; L84 Corns and callosities; N18.9 Chronic kidney disease, unspecified; E11.42 Type 2 diabetes mellitus with diabetic polyneuropathy | CPT/HCPCS: 11056; 11721 ==

== ENCOUNTER → 2025-06-29 14:15 | Outpatient (BNVA) | payer OTHER, SELFPAY | PROVIDERS: PCP Nurse Practitioner Family; Visit Provider Internal Medicine Cardiovascular Disease | DX: I25.10 Atherosclerotic heart disease of native coronary artery without angina pectoris (principal); I73.9 Peripheral vascular disease, unspecified; E78.5 Hyperlipidemia, unspecified; F17.210 Nicotine dependence, cigarettes, uncomplicated; I12.9 Hypertensive chronic kidney disease with stage 1 through stage 4 chronic kidney disease, or unspecified chronic kidney disease; N18.9 Chronic kidney disease, unspecified; E11.22 Type 2 diabetes mellitus with diabetic chronic kidney disease; Z79.01 Long term (current) use of anticoagulants; Z79.84 Long term (current) use of oral hypoglycemic drugs | CPT/HCPCS: 99214 ==

== ENCOUNTER 2025-07-11 14:41 | Oncology outpatient (recurring) (ONCR) | payer OTHER, SELFPAY ==
[2025-07-11 15:57] LABS: Hematocrit 35.8 % (37-53); Hemoglobin 10.40 g/dL (11.27-16.99); Mean Corpuscular HGB Conc 29.1 g/dL (30-55); Mean Corpuscular Hemoglobin 22.7 pg (27-33); Mean Corpuscular Volume 78.2 fl (82-101); Nucleated Red Blood Cells % 0 %; Platelet Count 232 10^3/cmm (157-399); Red Blood Count 4.58 10^6/uL (3.85-5.65); White Blood Count 15.66 10^3/uL (3.29-11.43)
[2025-07-11 16:20] LABS: Alanine Aminotransferase 21 U/L (0-41); Albumin Level 4.3 g/dL (3.5-5.2); Alkaline Phosphatase 176 U/L (40-130); Anion Gap 15.0 (5-19); Aspartate Amino Transferase 18 U/L (0-40); Blood Urea Nitrogen 26 mg/dL (8-23); Calcium 10.0 mg/dL (8.5-10.5); Carbon Dioxide 25 mmol/L (22-29); Chloride 105 mmol/L (98-107); Creatinine Clr Calc Pharmacy 32.8879; Ferritin 13 ng/mL (30-400); Globulin 2.6 g/dL (1.3-4.6); Glucose 58 mg/dL (65-115); Iron 22 ug/dL (59-158); Osmolality Calculated 295 mOsm/kg (285-295); Potassium 4.0 mmol/L (3.5-5.1); Sodium 141 mmol/L (136-145); Total Iron Binding Capacity 395 mcg/dl; Total Protein 6.9 g/dL (6.6-8.7); Unsaturated Iron Binding 373 ug/dL (112-347)
[2025-07-11 16:32] LABS: Vitamin B12 503 pg/mL (232-1245)
[2025-07-12 07:34] LABS: PROTEIN, TOTAL 6.7 g/dL (6.1-8.1)
[2025-07-13 08:58] LABS: ALPHA 1 GLOBULIN 0.3 g/dL (0.2-0.3); ALPHA 2 GLOBULIN 0.7 g/dL (0.5-0.9); BETA 1 GLOBULIN 0.5 g/dL (0.4-0.6); BETA 2 GLOBULIN 0.3 g/dL (0.2-0.5)
[2025-07-13 13:12] LABS: Leukemia Profile (BBPL) See Report
== END 2025-07-14 23:59 | disposition home or self-care (01) ==
PROVIDERS: PCP Nurse Practitioner Family; Visit Provider Internal Medicine Medical Oncology
DX: D50.9 Iron deficiency anemia, unspecified (principal); R89.9 Unspecified abnormal finding in specimens from other organs, systems and tissues; I48.11 Longstanding persistent atrial fibrillation; F17.210 Nicotine dependence, cigarettes, uncomplicated; D72.829 Elevated white blood cell count, unspecified; D72.820 Lymphocytosis (symptomatic); E83.52 Hypercalcemia
CPT/HCPCS: 36415; 80053; 82607; 82728; 82746; 83540; 83550; 84155; 84165; 85025; 86334; 88184; 88185; 99205

== ENCOUNTER 2025-08-01 12:33 | Oncology outpatient (recurring) (ONCR) | payer OTHER, SELFPAY | END 2025-08-13 23:59 | disposition home or self-care (01) | PROVIDERS: PCP Nurse Practitioner Family; Visit Provider Internal Medicine Medical Oncology | DX: C91.10 Chronic lymphocytic leukemia of B-cell type not having achieved remission (principal); E83.52 Hypercalcemia; F17.210 Nicotine dependence, cigarettes, uncomplicated; D50.9 Iron deficiency anemia, unspecified; K92.2 Gastrointestinal hemorrhage, unspecified | CPT/HCPCS: 99214 ==

== ENCOUNTER → 2025-08-02 08:46 | Outpatient (BNVA) | payer OTHER, SELFPAY | PROVIDERS: PCP Nurse Practitioner Family; Visit Provider Surgery | DX: Z12.11 Encounter for screening for malignant neoplasm of colon (principal); Z85.038 Personal history of other malignant neoplasm of large intestine | CPT/HCPCS: 99214 ==

== ENCOUNTER 2025-08-24 10:43 | Day surgery (SDC) | payer OTHER, SELFPAY ==
[2025-08-24 10:57] VITALS: BP 103/53; PULSE 81; RESP 16; TEMP 36.3; O2SAT 100; BMI 30.5
--- NOTE | 2025-08-24 11:32 | P.HPUD_ITS ---
Surgery/Procedure H&P Update DATE OF PROCEDURE: August 24, 2025 DATE H&P PERFORMED: 08/01/25 H&P UPDATE INFORMATION: I have reviewed H&P completed within last 30 days, I have examined patient prior to procedure, No changes to prior documentation, H&P is in [facility] EMR on date indicated and Risks and benefits of the procedure reviewed PLANNED PROCEDURE: Operation Date: 08/24/25 13:05 Proposed Procedures p Colonoscopy 95018 G0105 Z85.038(Not Applicable) - Ricardo Castrejon MD
--- NOTE | 2025-08-24 12:23 | ANES.PREANE2 ---
Pre-Anesthetic Assessment Height/Weight: Height 1.75 m Weight 93.894 kg Temp Pulse Resp BP Pulse Ox O2 Del Method 97.3 F L 81 16 103/53 100 Room Air 08/24/25 10:57 08/24/25 10:57 08/24/25 10:57 08/24/25 10:57 08/24/25 10:57 08/24/25 10:57 Preop Diagnosis: History of Anal Cancer, Rectal Bleeding Operation Date: 08/24/25 13:05 Proposed Procedures p Colonoscopy 08566 G0105 Z85.038(Not Applicable) - Ricardo Castrejon MD Familial anesthetic complications: none Last intake: Intake Last Liquid Date 08/23/25 Last Liquid Time 20:00 Last Solid Date 08/22/25 Last Solid Time 20:00 Social Alcohol and Tobacco Exam alert and oriented x 3 Duoneb ordered expiratory wheezes noted. Airway Submandibular: within normal limits Cervical ROM: within normal limits Mallampati: Class II Dentition: false Comments: Comments: upper plate Pulmonary Chronic Obstructive Pulmonary Disease, Exertional Dyspnea and Shortness of Breath CV/HEM Atrial Fibrillation, Anemia, Coronary Artery Disease (2023 stents), Congestive Heart Failure, Hypertension, Myocardial Infarction and Peripheral Vascular Disease (PAD stent January 2025) Chronic Renal Insufficiency creat. 1.9 Hepatic None reported GI Gastroesophageal Reflux Disease Metabolic Diabetes Mellitus and Hyperlipidemia Musc/skel Weakness Leg pain and weakness from PAD Anesthetic Plan ASA status: 3 Anesthesia: MAC Medications/Allergies Home Medications ?Medication ?Instructions ?Recorded ?Confirmed ?Last Taken ?Type albuterol sulfate 90 mcg/actuation 2 puff inhalation Q6H PRN Wheezing 05/22/20 08/24/25 08/22/25 History aerosol inhaler ticagrelor 90 mg tablet 90 mg PO BID #180 tabs 09/03/20 08/24/25 08/16/25 Rx pravastatin 80 mg tablet 80 mg PO DAILY 06/05/22 08/24/25 08/22/25 History Orthopedic shoes with custom soles #1 ea 11/11/22 08/24/25 09/07/23 Rx supports nitroglycerin 0.4 mg sublingual 0.4 mg sublingual Q5M PRN chest 03/30/23 08/24/25 1 Week Ago Rx tablet (Nitrostat) pain #30 tabs ~09/02/23 apixaban 5 mg tablet (Eliquis) 5 mg PO BID 05/11/24 08/24/25 08/19/25 History pantoprazole 20 mg tablet,delayed 20 mg PO BID 07/18/24 08/24/25 08/22/25 History release acetaminophen 500 mg capsule 1,000 mg PO Q6H PRN Pain 12/14/24 08/24/25 08/22/25 History furosemide 40 mg tablet (Lasix) 20 mg PO DAILY PRN edema 12/26/24 08/24/25 08/22/25 History empagliflozin 25 mg tablet 25 mg PO DAILY 06/29/25 08/24/25 08/22/25 History glipizide 10 mg tablet 10 mg PO BID 06/29/25 08/24/25 08/22/25 History metoprolol succinate 25 mg 25 mg PO DAILY 06/29/25 08/24/25 08/22/25 History tablet,extended release 24 hr nifedipine 60 mg tablet,extended 60 mg PO DAILY #90 tabs 07/05/25 08/24/25 08/22/25 Rx release amlodipine 10 mg tablet 10 mg PO DAILY 07/11/25 08/24/25 08/22/25 History diclofenac sodium 1 % topical gel 4 g topical BID PRN Pain 08/22/25 08/24/25 08/22/25 History (Voltaren Arthritis Pain) furosemide 20 mg tablet 20 mg PO DAILY 08/22/25 08/24/25 08/22/25 History potassium chloride 20 mEq 20 meq PO DAILY 08/22/25 08/24/25 08/22/25 History tablet,extended release Allergies Allergy/AdvReac Type Severity Reaction Status Date / Time No Known Allergies Allergy Verified 08/24/25 11:00 Current Medications Generic Name Dose Route Start Last Admin Trade Name Freq PRN Reason Stop Dose Admin Sodium Chloride 1,000 mls @ 15 mls/hr 08/24/25 10:45 08/24/25 11:10 Sodium Chloride 0.9% IV 08/25/25 10:44 15 mls/hr .Q24H PRN Administration COLONOSCOPY FLUIDS PFSH Anesthesia Medical History Osteoarthritis, generalized Immunization counseling High risk medication use Polyarthralgia Smoking addiction Diabetic peripheral neuropathy associated with type 2 diabetes mellitus Trigger finger, left ring finger Trigger finger, right ring finger COPD (chronic obstructive pulmonary disease) Peripheral arterial disease Anal cancer Dyslipidemia (high LDL; low HDL) ASHD (arteriosclerotic heart disease) Hypertension Atrial fibrillation Hyperparathyroidism Insomnia Chronic kidney disease Gout Anemia GERD (gastroesophageal reflux disease) Surgical History Hx of colonoscopy between 5-10 yrs ago History of esophagogastroduodenoscopy (EGD) between 5-10 yrs. Done x2 H/O hernia repair H/O cervical spine surgery S/P arterial stent right leg in 2009, left leg in 2017 History of coronary angioplasty with insertion of stent History of back surgery Spinal fusion H/O excision of epidermal inclusion cyst (05/30/20) left chest wall Status post colonoscopy History of cataract surgery Family History Other Family history unknown Social History Smoking and tobacco/nicotine status: current every day tobacco/nicotine user cigarettes Packs smoked per day: 1.5 Alcohol intake: current Alcohol intake frequency: 0-2 Drinks per Day Alcohol type: beer and hard liquor Substance/Drug Use: never Household members: spouse Marital status: Current occupational status: retired Data Anesthesia Cardiac Studies: Sestamibi Stress Test (Cardiology) 06/03/23 Cardiac Event Monitor 09/30/21
[2025-08-24 12:32] VITALS: PULSE 100; RESP 16; O2SAT 95
[2025-08-24 13:10] VITALS: BP 111/56; PULSE 78; RESP 18; TEMP 36.3; O2SAT 96
[2025-08-24 13:34] VITALS: BP 134/54; PULSE 75; RESP 18; O2SAT 95
--- NOTE | 2025-08-24 14:00 | ANE.PACU2 ---
Inpatient post-anesthesia follow up: Airway intact: Yes Vital signs: Temperature 97.4 F Pulse Rate 75 Respiratory Rate 18 Blood Pressure 134/54 Pulse Oximetry 95 Oxygen Delivery Me thod Room Air Oxygen Flow Rate Fraction of Inspir ed Oxygen Hydration adequate: Yes Nausea and vomiting: No Pain level: 1 Mental status: Baseline
== END 2025-08-24 14:00 | disposition home or self-care (01) ==
PROVIDERS: PCP Nurse Practitioner Family; Visit Provider Surgery
PROC: 0DJD8ZZ Inspection of Lower Intestinal Tract, Via Natural or Artificial Opening Endoscopic (ICD-10-PCS; CPT 45378; principal; 2025-08-24 13:05)
DX: Z12.11 Encounter for screening for malignant neoplasm of colon (principal); Z85.048 Personal history of other malignant neoplasm of rectum, rectosigmoid junction, and anus; K62.5 Hemorrhage of anus and rectum; D12.2 Benign neoplasm of ascending colon; D12.4 Benign neoplasm of descending colon; D12.8 Benign neoplasm of rectum; K21.9 Gastro-esophageal reflux disease without esophagitis; J44.9 Chronic obstructive pulmonary disease, unspecified; E11.22 Type 2 diabetes mellitus with diabetic chronic kidney disease; I13.0 Hypertensive heart and chronic kidney disease with heart failure and stage 1 through stage 4 chronic kidney disease, or unspecified chronic kidney disease; N18.9 Chronic kidney disease, unspecified; I50.9 Heart failure, unspecified; I25.2 Old myocardial infarction; I25.10 Atherosclerotic heart disease of native coronary artery without angina pectoris; Z95.5 Presence of coronary angioplasty implant and graft; E78.5 Hyperlipidemia, unspecified; D64.9 Anemia, unspecified; I48.91 Unspecified atrial fibrillation; E21.3 Hyperparathyroidism, unspecified; F17.210 Nicotine dependence, cigarettes, uncomplicated
CPT/HCPCS: 36416; 45380; 45385; 82962; 88305; 94640; J2704; J7030; J9999